=== PATIENT | female | born 1945 | race Caucasian/White ===

== ENCOUNTER 2024-08-02 10:20 | Inpatient (IN) | payer MEDICARE, SELFPAY ==
--- NOTE | ~2024-08-02 | CT_ITS ---
EXAMINATION: CT ABDOMEN AND PELVIS WITH CONTRAST CLINICAL INFORMATION: Right lower quadrant pain COMPARISON: None available. TECHNIQUE: Multidetector volumetric images were obtained from the superior aspect of the liver through the pubic symphysis following administration 85 mL of Omnipaque 350 intravenous contrast. Sagittal and coronal reformatted images were obtained on the technologist's workstation. Oral contrast: No This CT examination was performed using dose optimization techniques as appropriate, variously including the following: *Automated exposure control *Adjustment of mA and/or kV according to patient size (this includes techniques or standardized protocols for targeted exams where dose is matched to indication/reason for exam; i.e. extremities or head) *Use of iterative reconstruction technique DLP: 423 mGy-cm FINDINGS: Images are degraded by streak artifact from lumbar spine hardware, limiting evaluation of fine detail. LUNG BASES: The visualized lung bases are unremarkable. LIVER, GALLBLADDER, AND BILIARY TREE: The liver is diffusely low in attenuation in keeping with hepatic steatosis, but otherwise normal in size and shape. No focal hepatic lesion or biliary ductal dilatation is present. The gallbladder is unremarkable with no evidence of radiopaque gallstones, gallbladder wall thickening, or obvious pericholecystic inflammatory changes. PANCREAS: Multilobular cystic lesion in the pancreatic head measures 3.7 x 2.8 x 5.2 cm. No pancreatic duct dilatation. SPLEEN: Unremarkable. ADRENAL GLANDS: Unremarkable. KIDNEYS AND URETERS: Mild left hydronephrosis without obstructing stone or mass. Mild fullness of the right extrarenal pelvis without overt hydronephrosis. No renal calculi. BLADDER: Distended without wall thickening. GASTROINTESTINAL TRACT: Large stool burden throughout the colon. Right inguinal hernia contains a loop of small bowel with with fecalization, suggesting slow transit. In addition, the proximal loops of small bowel are diffusely distended and gas-filled, a few of which have air-fluid levels. Scattered sigmoid diverticulosis without secondary signs of acute diverticulitis. The appendix is not visualized. ABDOMINAL WALL: Moderate sized right foraminal hernia containing a loop of small bowel resulting in possible small bowel obstruction, as above. Small fat-containing left inguinal hernia. LYMPH NODES: Normal. VASCULAR: Extensive atherosclerosis of aorta and its branches. No abdominal aortic aneurysm. Enlarged left gonadal vein and tangle of bilateral parametrial vessels, greater on the left, may represent a pelvic venous malformation. PELVIC VISCERA: Unremarkable. OSSEOUS STRUCTURES: Diffuse low density of the bones likely represents osteoporosis. Multilevel degenerative changes of the spine. Posterior fusion hardware of L4-L5. Severe compression fracture of T11 of indeterminate age with 75% height loss. CT/CT abdomen pelvis w IV con IMPRESSION: 1. Moderate-sized right inguinal hernia containing a loop of small bowel with fecalization, suggesting slow transit. Diffuse gaseous distention of the proximal loops of small bowel, some of which contain air-fluid levels. Findings are concerning for incarcerated hernia and resultant small bowel obstruction. 2. Large stool burden throughout the colon. 3. Multilobular cystic lesion in the pancreatic head measures 3.7 x 2.8 x 5.2 cm. Recommend further evaluation with MRI/MRCP. 4. Enlarged left gonadal vein and tangle of bilateral parametrial vessels, greater on the left, may represent a pelvic venous malformation. 5. Osteoporosis. 6. Severe compression fracture of T11 of indeterminate age with 75% height loss. 7. Hepatic steatosis. Fleischner guidelines were followed. Findings were verbally communicated with Dr. Arianna Hartman on 08/02/2024 at 3:07 PM. Electronically signed by: Mery Escalante MD 08/02/2024 03:08 PM [facility]
[2024-08-02 10:34] VITALS: BP 138/86; BP 158/76; PULSE 104; PULSE 88; RESP 20; TEMP 36.6; O2SAT 97; O2SAT 98; BMI 21.3
--- NOTE | 2024-08-02 10:47 | ECG_ITS ---
Test Reason : RLQ PAIN, RO APPY Blood Pressure : / mmHG Vent. Rate : 085 BPM Atrial Rate : 085 BPM P-R Int : 146 ms QRS Dur : 068 ms QT Int : 386 ms P-R-T Axes : 069 -26 -14 degrees QTc Int : 459 ms Sinus rhythm with Premature atrial complexes Minimal voltage criteria for LVH, may be normal variant ( R in aVL ) Borderline ECG No previous ECGs available Referred By: Arianna Hartman Electronically Signed By:Neo Hatch
--- NOTE | 2024-08-02 10:49 | ED_ITS ---
HPI - General Adult General Chief complaint: General Medical Stated complaint: UPSET STOMACH Time Seen by Provider: 08/02/24 10:41 Source: patient and EMS Mode of arrival: EMS Limitations: no limitations History of Present Illness ED Provider: DR. Hartman HPI narrative: 78-year-old female came in by EMS from our [facility] assisted living for evaluation after having upset stomach after breakfast with vomiting and now patient is complaining of epigastric pain with burping, VNA also noticed to have erratic pulse while she was at the assisted living patient was sent for further evaluation, in the ED patient feels slightly nauseous, complaining of right-sided abdominal pain/ epigastric pain. No diarrhea. No sick contacts, no recent use of antibiotic, no recent travel. No history of intra-abdominal surgery in the past. No CP, no SOB , no dysuria, no frequency urination, no hematuria. Related Data Allergies Allergy/AdvReac Type Severity Reaction Status Date / Time penicillin G Allergy Hives Verified 08/02/24 10:37 Review of Systems 2 Review of Systems: All other systems are reviewed and are negative Constitutional: Reports as per HPI and Reports no additional constitutional complaints Eyes: Reports as per HPI and Reports no additional eye complaints Reports system reviewed and no additional complaints, except as documented Cardiovascular: Reports as per HPI and Reports no additional cardiovascular complaints Respiratory: Reports as per HPI and Reports no additional respiratory complaints Gastrointestinal: Reports as per HPI and Reports no additional gastrointestinal complaints Genitourinary: Reports no additional female genitourinary complaints Musculoskeletal: Reports no additional musculoskeletal complaints Skin/Breast: Reports system reviewed and no additional complaints, except as docu Psychiatric: Reports no additional psychiatric complaints Endocrine: Reports no additional endocrine complaints Hematologic/Lymphatic: Reports no additional hematologic/lymphatic complaints Allergic/Immunologic: Reports no additional allergic/immunologic complaints Reports system reviewed and no additional complaints, except as documented and Reports Abnormal speech present [facility] Social History Social History Smoked in Last 30 Days: No Use of substances other than those prescribed or required for medical reasons: No Advance Directives: No Advance Directives Information Provided: No Do you have a plan to hurt others: No Plan Physical Exam ED Vital Signs: Vital Signs - 24 hr 08/02/24 10:34 08/02/24 12:11 Temperature 97.9 F 97.6 F Pulse Rate 104 H 68 Respiratory Rate 20 14 Blood Pressure 158/76 H 155/86 H Pulse Oximetry 98 96 Oxygen Delivery Method Room Air Room Air BMI result Body Mass Index 21.3 Vital signs have been reviewed and appear to be correct. Blood pressure elevated. Heart rate elevated. Respiratory rate normal. Temperature normal. Oxygen saturation normal. Appearance: Alert. Oriented X3. No acute distress. Head: Normal external exam. Normocephalic. Atraumatic. No Simon signs noted. No raccoon eyes noted Eyes: PERRLA. EOMI. Conjunctiva and sclera normal. Eyelids normal. ENT: TM's Normal. Pharynx normal. Uvula midline. Moist mucous membranes. No trismus noted. No drooling noted. No muffled voice noted. Neck: Normal inspection. Neck supple. FROM. No adenopathy. Thyroid Normal. No meningeal signs. No neck mass noted. CVS: Normal heart rate and rhythm. Heart sound normal. No murmurs noted. Pulses normal throughout. Respiratory: No respiratory distress. Painless inspiration. Breath sounds normal. No wheezes/rales/rhonchi noted. Chest nontender. No accessory muscle usage noted or decreased air movement noted. Abdomen: Soft , right lower quadrant abdominal tenderness, no rebound tenderness, no guarding. Bowel sounds normal in all 4 quadrants. No distention noted. No organomegaly noted. No visible injury noted. Back: No CVA tenderness. Full range of motion noted. Skin: Skin warm and dry. Normal skin color. Normal skin turgor. No rashes/lesions/lacerations noted. Extremities: No lower extremity edema. Extremities exhibit normal range of motion. Extremities nontender. Neuro: Oriented X 3. Cranial nerve exam: II-XII are grossly intact No motor deficit. No sensory deficit. Reflexes normal. Course Reevaluation(s) Reevaluation #1: still feels slight discomfort, patient is burping, CT abdomen pelvis is concern of small-bowel obstruction secondary to right inguinal hernia. Pancreatic mass that will require further workup Time: 15:14 Medications Administered Discontinued Medications Generic Name Dose Route Start Last Admin Trade Name Freq PRN Reason Stop Dose Admin Al Hydroxide/Mg Hydroxide 30 ml 08/02/24 10:47 08/02/24 11:05 Magnesium Hydrox/Alum Hydrox 30 Ml Oral.Susp PO 08/02/24 10:48 30 ml ONCE ONE Administration Famotidine 20 mg 08/02/24 10:47 08/02/24 11:05 Famotidine/Pf 20 Mg/2 Ml Vial IVPUSH 08/02/24 10:48 20 mg ONCE ONE Administration Sodium Chloride 1,000 mls @ 999 mls/hr 08/02/24 10:47 08/02/24 12:09 Ns IV 08/02/24 11:47 Infused .Q1H1M ONE Infusion Iohexol 100 ml 08/02/24 13:40 08/02/24 13:40 Iohexol 350 Mg/Ml 100 Ml Infus..Btl IV 08/02/24 13:41 85 ml ONCE ONE Administration Ondansetron HCl 4 mg 08/02/24 10:47 08/02/24 11:12 Ondansetron Hcl 4 Mg/2 Ml Vial IVPUSH 08/02/24 10:48 Not Given ONCE ONE Medical Decision Making Differential Diagnosis Differential Diagnoses: The differential diagnosis associated with the presentation includes ( Acute appendicitis, gastroenteritis, food poisoning, gastritis, gallbladder disease, pancreatitis, colitis, diverticulitis, electrolyte derangement, severe anemia, ACS, incarcerated right inguinal hernia, SBO.) Admission/Observation Consideration of admission/observation: Escalation of care including admission/observation considered Lab Data MDM Lab Attestation statement: I reviewed the patient's lab results. 08/02/24 11:02 08/02/24 11:02 Labs: Lab Results 08/02/24 Range/Units 11: WBC 8.5 (4.8-10.8) X10*3/uL RBC 4.49 (4.20-5.50) X10*6/uL Hgb 14.0 (12.0-16.0) g/dl Hct 41.9 (37.0-47.0) % MCV 93.3 (80.0-98.0) fL MCH 31.2 (27.0-33.0) pg MCHC 33.4 (31.0-35.0) g/dl RDW 15.1 (11.0-16.0) % Plt Count 519 H (160-400) X10*3/uL MPV 8.3 L (9.4-12.3) fL Immature Gran % (Auto) 0.4 (0.0-0.4) % Neut % (Auto) 71.6 (45-73) % Lymph % (Auto) 15.4 L (20-40) % Craig % (Auto) 11.0 (2-11) % Eos % (Auto) 0.7 (0-4) % Baso % (Auto) 0.9 (0-2) % Lymph # (Auto) 1.3 (1.2-4.9) X10*3/uL Craig # (Auto) 0.9 (0.1-1.2) X10*3/uL Eos # (Auto) 0.1 (0.0-0.4) X10*3/uL Baso # (Auto) 0.1 (0.0-0.2) X10*3/uL Abs Immat Gran (auto) 0.03 (0.00-0.03) X10*3/uL Absolute Neuts (auto) 6.1 (2.0-8.3) x10*3/uL Absolute Nucleated RBC 0.000 (0.0-0.012) X10*3/uL Nucleated RBC % (auto) 0.0 (0.0-0.2) /100WBC Sodium 143 (135-145) mmol/L Potassium 3.8 (3.3-5.1) mmol/L Chloride 106 (96-108) mmol/L Carbon Dioxide 26 (22-29) mmol/L Anion Gap 15 (12-20) BUN 10 (9-16) mg/dL Creatinine 0.67 (0.5-1.4) mg/dL Estim Creat Clear Calc 56.3 Estimated GFR > 60 Random Glucose 93 (60-115) mg/dL Calcium 10.1 (8.4-10.2) mg/dL Total Bilirubin 0.4 (0.0-1.0) mg/dL Direct Bilirubin 0.2 (0.0-0.5) mg/dL AST 26 (5-31) U/L ALT 11 (0-31) U/L Alkaline Phosphatase 68 (39-117) U/L Troponin I High Sens 4.4 (<3.5-17.0) ng/L Total Protein 6.7 (6.5-8.0) g/dL Albumin 3.8 (3.5-5.0) g/dL Lipase 30 (8-78) U/L Independent Interpretation I performed an independent interpretation of an: CT Scan ( Abdomen pelvis: No acute intra-abdominal pathology.) Radiology Impression Discussion of test interpretation with radiology: I have reviewed the radiologist's reading. Discharge Plan Discharge Clinical Impression: Inguinal hernia, right, Cystic mass of pancreas, Small bowel obstruction Patient Disposition: Admitted As Inpatient Instructions: Food Poisoning (ED) Referrals: Ginna Guevara MD [Primary Care Provider] - Print Language: German
[2024-08-02 11:05] LABS: MANUAL DIFF FLAG NO
[2024-08-02] MEDS: 0.9 % Sodium Chloride 1,000 ML 999 ML IV (11:05)
[2024-08-02] MEDS: Magnesium Hydrox/Alum Hydrox 30 ML ORAL.SUSP PO (11:05)
[2024-08-02] MEDS: Famotidine/PF 20 MG/2 ML VIAL IVPUSH (11:05)
[2024-08-02 11:07] LABS: Basophils Absolute Auto 0.1 X10*3/uL (0.0-0.2); Basophils Percent Auto 0.9 % (0-2); Eosinophils Absolute Auto 0.1 X10*3/uL (0.0-0.4); Eosinophils Percent Auto 0.7 % (0-4); Hematocrit 41.9 % (37.0-47.0); Imm Gran Abs Auto 0.03 X10*3/uL (0.00-0.03); Imm Gran Pct Auto 0.4 % (0.0-0.4); Lymphocytes Absolute Auto 1.3 X10*3/uL (1.2-4.9); Lymphocytes Percent Auto 15.4 % (20-40); Mean Corpuscular HGB Conc 33.4 g/dl (31.0-35.0); Mean Corpuscular Hemoglobin 31.2 pg (27.0-33.0); Mean Corpuscular Volume 93.3 fL (80.0-98.0); Mean Platelet Volume 8.3 fL (9.4-12.3); Monocytes Absolute Auto 0.9 X10*3/uL (0.1-1.2); Neutrophils Absolute Auto 6.1 x10*3/uL (2.0-8.3); Neutrophils Percent Auto 71.6 % (45-73); Platelet Count 519 X10*3/uL (160-400); Red Blood Count 4.49 X10*6/uL (4.20-5.50); Red Cell Distribution Width 15.1 % (11.0-16.0); White Blood Count 8.5 X10*3/uL (4.8-10.8)
[2024-08-02 11:24] LABS: Alanine Aminotransferase 11 U/L (0-31); Albumin Level 3.8 g/dL (3.5-5.0); Alkaline Phosphatase 68 U/L (39-117); Anion Gap 15 (12-20); Aspartate Amino Transferase 26 U/L (5-31); Bilirubin Direct 0.2 mg/dL (0.0-0.5); Bilirubin Total 0.4 mg/dL (0.0-1.0); Blood Urea Nitrogen 10 mg/dL (9-16); Calcium 10.1 mg/dL (8.4-10.2); Carbon Dioxide 26 mmol/L (22-29); Chloride 106 mmol/L (96-108); Creatinine Clr Calc Pharmacy 56.3; Estimated Glomerular Filt Rate > 60; Glucose Random 93 mg/dL (60-115); Lipase 30 U/L (8-78); Potassium 3.8 mmol/L (3.3-5.1); Sodium 143 mmol/L (135-145); Total Protein 6.7 g/dL (6.5-8.0)
[2024-08-02 11:30] LABS: Troponin-I High Sensitivity 4.4 ng/L (<3.5-17.0)
[2024-08-02 12:11] VITALS: BP 155/86; PULSE 68; RESP 14; TEMP 36.4; O2SAT 96
[2024-08-02] MEDS: iohexoL 350 MG/ML 100 ML INFUS..BTL IV (13:40)
[2024-08-02] MEDS: Dextrose 5 % and Lactated Ring 1,000 ML 125 ML IVCONT ×2 (15:46→23:12)
[2024-08-02 16:09] VITALS: BP 161/85; PULSE 71; RESP 18; TEMP 36.8; O2SAT 95
[2024-08-02 16:26] VITALS: BP 175/85; PULSE 77; RESP 16; TEMP 36.5; O2SAT 98
--- NOTE | 2024-08-02 16:38 | PM.HPGS ---
History of Present Illness History of Present Illness Date of Service: 08/02/24 Chief complaint: SBO, incarcerated [facility] Narrative: Sylvia Jimenez is a 78 year old female presenting with complaints of nausea and vomiting this morning after eating breakfast. She also reported an upset stomach. She denies a previous history of similar symptoms. She had a known history of a right inguinal hernia and had recently seen a surgeon for repair. The decision was made to observe the hernia at the time. She occasionally has some discomfort and notes the hernia to increase in decrease in size with activity. She denies a previous history of hernia surgery. CT abdomen and pelvis revealed a loop of small bowel within the right inguinal hernia sac with evidence of fecalization and distended small bowel proximal to the hernia suggestive of a small-bowel obstruction. She is admitted to the surgical service for further management of this incarcerated right inguinal hernia. Review of Systems Review of Systems: Yes all other systems are reviewed and are negative Constitutional: Constitutional: Denies chills, Denies fever(s), Denies headache(s), Denies poor appetite and Denies weakness ENT: Denies headache(s) Cardiovascular: Cardiovascular: Denies chest pain, Denies irregular heart rhythm, Denies palpitations and Denies dyspnea Respiratory: Respiratory: Denies cough, Denies excessive phlegm production and Denies dyspnea Gastrointestinal: Gastrointestinal: Denies abdominal pain, Denies bloating, Denies change in bowel habits, Denies constipation, Denies heartburn, Denies diarrhea, Denies nausea and Denies vomiting Genitourinary: Genitourinary: Denies urinary frequency Musculoskeletal: Musculoskeletal: Denies back pain, Denies muscle weakness and Denies numbness Integumentary/Breasts: Skin/Breast: Denies changing lesions and Denies unusual bruising Neurologic: Denies headache(s), Denies numbness, Denies paresthesias and Denies weakness Psychiatric: Psychiatric: Denies anxiety and Denies depression Endocrine: Endocrine: Denies palpitations Hematologic/Lymphatic: Hematologic/Lymphatic: Denies lymphadenopathy [facility] Past Medical History Medical History (Updated 08/02/24 @ 16:43 by Vicente Stearns MD) Sacral decubitus ulcer, stage III Spinal stenosis Kidney stones Cystic mass of pancreas Surgical History Surgical History (Updated 08/02/24 @ 16:40 by Vicente Stearns MD) Previous back surgery Social History Social History Patient Tobacco Use Status: Never used Tobacco Smoked in Last 30 Days: No Use of substances other than those prescribed or required for medical reasons: No Advance Directives: No Advance Directives Information Provided: No Do you have a plan to hurt others: No Plan Nutrition Risks: No Nutritional Risk Meds Allergies Allergy/AdvReac Type Severity Reaction Status Date / Time penicillin G Allergy Hives Verified 08/02/24 10:37 Active Medications: Current Medications Calcium Carbonate (Calcium Carbonate 750 Mg Tab.Chew) 750 mg PO Q4H PRN PRN Reason: Heartburn Hydromorphone HCl (Hydromorphone Hcl 0.5 Mg/0.5 Ml Syringe) 0.5 mg IVPUSH Q3H PRN; Protocol PRN Reason: Pain, Severe (Pain Scale 7-10) Dextrose/Lactated Ringer's (D5lr) 1,000 mls @ 125 mls/hr IVCONT .Q8H [facility] Last Admin: 08/02/24 15:46 Dose: 125 mls/hr Magnesium Hydroxide (Milk Of Magnesia 30 Ml Oral.Susp) 30 ml PO DAILY PRN PRN Reason: Constipation Melatonin (Melatonin 3 Mg Tablet) 6 mg PO BEDTIME PRN PRN Reason: Insomnia Ondansetron HCl (Ondansetron Hcl 4 Mg/2 Ml Vial) 4 mg IVPUSH QID PRN PRN Reason: Nausea Sodium Chloride (0.9 % Sodium Chloride Flush 3 Ml Syringe) 3 ml IVFLUSH QSHIFT [facility] Last Admin: 08/02/24 16:11 Dose: Not Given Home Medications ?Medication ?Instructions ?Recorded ?Confirmed ?Last Taken ?Type acetaminophen 325 mg tablet 650 mg PO Q6H PRN Pain 08/02/24 08/02/24 Unknown History levofloxacin 750 mg tablet 750 mg PO DAILY 08/02/24 08/02/24 Unknown History metronidazole 250 mg tablet 750 mg PO Q6H wound 08/02/24 08/02/24 Unknown History Physical Exam Vital Signs: Vital Signs: Last Vital Signs Temp 97.7 F 08/02/24 16:26 Pulse 77 08/02/24 16:26 Resp 16 08/02/24 16:26 BP 175/85 H 08/02/24 16:26 Pulse Ox 98 08/02/24 16:26 O2 Del Method Room Air 08/02/24 16:26 BMI result Body Mass Index 21.3 Const: General: cooperative and no acute distress Nutritional Appearance: well nourished Orientation/consciousness: patient oriented x3 Limitations: no limitations HEENT: Head: Yes normocephalic and Yes atraumatic Ears: hearing grossly normal bilaterally Resp: Effort & Inspection: normal respiratory effort, no audible wheezes, no cough and no respiratory distress Cardio: Jugular venous distension: no JVD GI: Other: Soft and nondistended, tympany to percussion, positive bowel sounds, tenderness in the right lower quadrant with a palpable right inguinal hernia which increases with Valsalva maneuvers. No left inguinal hernia appreciated. Inspection: Yes normal to inspection Abdomen image: 1. Skin: Other: Warm, dry, no rash Neuro: General: patient oriented x3 Extrem: General: Yes no clubbing, cyanosis or edema Results Results Labs: Short CBC 08/02/24 Range/Units 11:02 WBC 8.5 (4.8-10.8) X10*3/uL Hgb 14.0 (12.0-16.0) g/dl Hct 41.9 (37.0-47.0) % Plt Count 519 H (160-400) X10*3/uL BMP 08/02/24 11:02 Sodium 143 Potassium 3.8 Chloride 106 Carbon Dioxide 26 BUN 10 Creatinine 0.67 Calcium 10.1 Liver Function 08/02/24 Range/Units 11:02 Total Bilirubin 0.4 (0.0-1.0) mg/dL Direct Bilirubin 0.2 (0.0-0.5) mg/dL AST 26 (5-31) U/L ALT 11 (0-31) U/L Alkaline Phosphatase 68 (39-117) U/L Albumin 3.8 (3.5-5.0) g/dL Assessment and Plan (1) Incarcerated right inguinal hernia: Status: Acute Plan 78-year-old female patient presenting with a recent onset of nausea and vomiting found to have an incarcerated right inguinal hernia on examination and confirmed by CT abdomen and pelvis. CT also reveals small bowel obstruction proximal to the hernia. I recommended admission with repair of this incarcerated right inguinal hernia tomorrow. I reviewed the procedure, risks, and alternatives in detail and she consents to a repair of the incarcerated right inguinal hernia with mesh. Quality Stroke Does the patient have a stroke diagnosis?: No VTE Prior VTE?: No VTE Risk Level:: Surgical - moderate VTE Device Contraindication: N/A - Device Ordered VTE Drug Contraindication: Treatment Not Indicated Procedures Date of Service Date of Service: 08/02/24
--- NOTE | 2024-08-02 16:40 | PHA.MEDREC ---
Addendum entered by Susan Fernandes RP 08/02/24 16:59: Reviewed by [facility] Original Note: Pharmacy Consult ? Medication Reconciliation Pharmacy has completed the medication reconciliation. Spoke with patient. She reports she only takes tylenol at home and was sent to [facility] from [place] in [place] with antibiotics. Called daughter and she could not remember the names of them but she knew the patient only took one of them this morning, she does not know which one. [place] reports levaquin and flagyl 14 day courses with end dates 08/06 and 08/05 respectively (for wound). Daughter reports she is supposed to [employer] wound care supplies tomorrow.
[2024-08-02 18:24] VITALS: BMI 22.4
[2024-08-02 18:40] VITALS: BP 166/82; PULSE 74; RESP 20; TEMP 36.6; O2SAT 96
[2024-08-02] MEDS: Acetaminophen 325 MG TABLET 650 MG PO (20:54)
[2024-08-02 21:01] LABS: Appearance Urine Clear; Color Urine Yellow; Glucose Urine UA Negative (Negative); Leukocyte Esterase Urine Small (1+) (Negative); Nitrite Urine Negative (Negative); UMIC TRIGGER UACC YES; Urine Blood Negative (Negative); Urine Ketones Negative (Negative); Urine Protein Negative (Neg-Trace)
[2024-08-02 21:14] LABS: Bacteria Urine None Seen (None Seen); Hyaline Casts Urine 0-2 /LPF (0-2); RBC Urine 0-2 /HPF (0-2); Squamous Epithelial Cell Urine 0-2 /HPF (0-2); UACC Culture Trigger YES; WBC Urine 0-5 /HPF (0-5)
[2024-08-03] VITALS (10 sets, daily range): BP systolic 117–145; BP diastolic 59–84; PULSE 74–109; RESP 14–18; TEMP 36–37.2; O2SAT 93–97; BMI 22.4
[2024-08-03] MEDS: Dextrose 5 % and Lactated Ring 1,000 ML 125 ML IVCONT ×3 (08:02→23:17)
[2024-08-03] MEDS: HYDROmorphone HCl 0.5 MG/0.5 ML SYRINGE IVPUSH (08:08)
--- NOTE | 2024-08-03 09:07 | MHC.SHP ---
Pre-Procedural Eval Section A - 24 Hr Update-Section A only Date of Service: 08/03/24 The patient is an INPATIENT: Yes Changes since office visit: Yes Patient answered all questions; No Cold of Flu in the past 2 weeks, No New Medical Problems and No Changes in Medication The patient has been examined within 24 hours of the surgical procedure. The History & Physical has been completed within 30 days and I have reviewed it.: Yes Section B - Complete if H&P > 30 days Chief Complaint: SBO, incarcerated [facility] Allergies: Allergies Allergy/AdvReac Type Severity Reaction Status Date / Time penicillin G Allergy Hives Verified 08/02/24 10:37 Plan Diagnosis/Plan: Unchanged I have reviewed the history and physical and performed a pertinent physical examination on my patient. No changes have occurred unless specified. Time Spent With Patient Time: Total time managing care of this patient today ____ minutes.
--- NOTE | 2024-08-03 10:58 | P.CONAN_ITS ---
HPI - Anesthesia Eval Consult details Narrative: 78 yo female patient for repair of Incarcerated Right inguinal hernia with mesh PMFSH Active Problems Active Problems: All Active Problems Incarcerated right inguinal hernia (Acute) Urinary tract infection (Acute) Sacral decubitus ulcer, stage III (Acute) Spinal stenosis (Acute) Kidney stones (Acute) Small bowel obstruction (Acute) Cystic mass of pancreas (Acute) Past Medical History Medical History Sacral decubitus ulcer, stage III Spinal stenosis Kidney stones Cystic mass of pancreas Family History Family history of problems with anesthesia: No Surgical History Surgical History H/O lithotripsy H/O brain surgery Total knee replacement status Previous back surgery History of Problems with Anesthesia: No Social History Social History Household Members: Other Housing: Assisted Living Facility Housing Other:: Independent living/ [place] Are you a primary health care attorney to a significant other at home: No Do you presently have visiting nurse or other home services: No Patient Tobacco Use Status: Never used Tobacco Meds Allergies Allergy/AdvReac Type Severity Reaction Status Date / Time penicillin G Allergy Unknown Hives Verified 08/03/24 12:09 Active Medications: Current Medications Acetaminophen (Acetaminophen 325 Mg Tablet) 650 mg PO QID PRN PRN Reason: headache, temp > 101 Last Admin: 08/02/24 20:54 Dose: 650 mg Calcium Carbonate (Calcium Carbonate 750 Mg Tab.Chew) 750 mg PO Q4H PRN PRN Reason: Heartburn Hydromorphone HCl (Hydromorphone Hcl 0.5 Mg/0.5 Ml Syringe) 0.5 mg IVPUSH Q3H PRN; Protocol PRN Reason: Pain, Severe (Pain Scale 7-10) Last Admin: 08/03/24 08:08 Dose: 0.5 mg Dextrose/Lactated Ringer's (D5lr) 1,000 mls @ 125 mls/hr IVCONT .Q8H LUPIS Last Admin: 08/03/24 08:02 Dose: 125 mls/hr Influenza Virus Vaccine (Flu Vacc [id number](6mos Up)/Pf 0.5 Ml Syringe) 0.5 ml IM .ONCE ONE Stop: 08/04/24 09:01 Magnesium Hydroxide (Milk Of Magnesia 30 Ml Oral.Susp) 30 ml PO DAILY PRN PRN Reason: Constipation Melatonin (Melatonin 3 Mg Tablet) 6 mg PO BEDTIME PRN PRN Reason: Insomnia Ondansetron HCl (Ondansetron Hcl 4 Mg/2 Ml Vial) 4 mg IVPUSH QID PRN PRN Reason: Nausea Sodium Chloride (0.9 % Sodium Chloride Flush 3 Ml Syringe) [address] [facility] Last Admin: 08/03/24 08:03 Dose: Not Given Home Medications ?Medication ?Instructions ?Recorded ?Confirmed ?Last Taken ?Type acetaminophen 325 mg tablet 650 mg PO Q6H PRN Pain 08/02/24 08/02/24 Unknown History levofloxacin 750 mg tablet 750 mg PO DAILY 08/02/24 08/02/24 Unknown History metronidazole 250 mg tablet 750 mg PO Q6H wound 08/02/24 08/02/24 Unknown History Exam Height,Weight and Vital Signs: Height 5 ft 3 in Weight 57.3 kg Last Vital Signs Temp 96.8 F 08/03/24 07:13 Pulse 74 08/03/24 07:13 Resp 14 08/03/24 07:13 BP 123/72 08/03/24 07:13 Pulse Ox 94 08/03/24 07:13 O2 Del Method Room Air 08/03/24 07:13 Vital Signs Temp Pulse Resp BP Pulse Ox O2 Del Method 08/03/24 12:17 98.9 F 81 16 143/71 H 96 Room Air 08/03/24 07:13 96.8 F 74 14 123/72 94 Room Air 08/03/24 03:12 97.2 F 80 18 117/60 97 Room Air 08/02/24 18:40 98 F 74 20 166/82 H 96 Room Air 08/02/24 16:26 97.7 F 77 16 175/85 H 98 Room Air 08/02/24 16:09 98.2 F 71 18 161/85 H 95 Room Air Pertinent Lab Results Pertinent Lab Results: Laboratory Tests 08/02/24 08/02/24 11:02 20:55 WBC 8.5 RBC 4.49 Hgb 14.0 Hct 41.9 MCV 93.3 MCH 31.2 MCHC 33.4 RDW 15.1 Plt Count 519 H MPV 8.3 L Immature Gran % (Auto) 0.4 Neut % (Auto) 71.6 Lymph % (Auto) 15.4 L [place] % (Auto) 11.0 Eos % (Auto) 0.7 Baso % (Auto) 0.9 Lymph # (Auto) 1.3 [place] # (Auto) 0.9 Eos # (Auto) 0.1 Baso # (Auto) 0.1 Abs Immat Gran (auto) 0.03 Absolute Neuts (auto) 6.1 Absolute Nucleated RBC 0.000 Nucleated RBC % (auto) 0.0 Sodium 143 Potassium 3.8 Chloride 106 Carbon Dioxide 26 Anion Gap 15 BUN 10 Creatinine 0.67 Estim Creat Clear Calc 56.3 Estimated GFR > 60 Random Glucose 93 Calcium 10.1 Total Bilirubin 0.4 Direct Bilirubin 0.2 AST 26 ALT 11 Alkaline Phosphatase 68 Troponin I High Sens 4.4 Total Protein 6.7 Albumin 3.8 Lipase 30 Urine Color Yellow Urine Appearance Clear Urine pH 8.0 Ur Specific [place] 1.020 Urine Protein Negative Urine Glucose (UA) Negative Urine Ketones Negative Urine Blood Negative Urine Nitrite Negative Ur Leukocyte Esterase Small (1+) H Urine RBC 0-2 Urine WBC 0-5 Ur Squamous Epith Cells 0-2 Urine Bacteria None Seen Hyaline Casts 0-2 Airway Mallampati Class: III (Small mouth) TM Dist: >3cm Neck ROM: Full Loose/Missing/Broken Teeth: No Heart: RRR Lungs: CTAB Assessment and Plan Assessment Anesthesia Assessment: Anesthesia Plan Discussed and Chart Reviewed Final Anesthetic Review Family History of Problems with Anesthesia: No History of Problems with Anesthesia: No NPO: Yes ASA Class: III and Emergency Final Preanesthetic Review: No Changes in Pt Med Stat, Meds/Allgs Chart Reviewed, Consent Obtained/Reviewed and Anes Risks/Benef Reviewed Patient Risk: Intermediate Procedure Risk: Intermediate Assessment/Block/Sedation in SS: Assess/Block/Sedation-SS Anesthetic Plan Anesthetic Plan: GA Disposition: Standard PACU
--- NOTE | 2024-08-03 11:35 | MHC.CLN ---
NUTRITION CURRENTLY NPO FOR SURGERY. INCREASED NUTRITION NEEDS, PROTEIN, DUE TO PRESSURE INJURIES. PATIENT WITH STAGE IV PI TO COCCYX AND UNSTAGEABLE AREA TO LEFT HEEL. WHEN ABLE TO ADVANCE DIET, RECOMMEND ADD ENSURE MAX PROTEIN BID TO PROMOTE WOUND HEALING. SUPPLEMENT PROVIDES 300 KCALS, 60 G PROTEIN. FOLLOW FOR DIET ADVANCEMENT, PO INTAKE, AND WOUND HEALING. SEE CLINICAL NUTRITION ASSESSMENT 08/03/24.
--- NOTE | 2024-08-03 12:00 | PC.NURSE ---
Pt to the OR
--- NOTE | 2024-08-03 12:30 | PC.NURSE ---
Pts daughter Alley given update
--- NOTE | 2024-08-03 12:40 | HO.WOUND ---
Wound Consult: Initial 78yr old female admitted to [facility] on 08/02/24 - See progress notes and H&P for detailed history.? Wound consult placed for coccyx wound POA.? Patient agreeable to assessment and photo documentation.?Patient reports the injuries are from a may fall she suffered and then subsequent SNF stay. She reports VNA or her daughter change her dressing daily - she is unable to recall what she does to treat the area. She reports off loading pressure. She reports she treats with an outpt wound clinic on [address] in [facility]. Recommend continued outpt follow up for wound healing - given the dept of the sacral wound - Negative Pressure Wound Therapy would likely be beneficial. The patient was not interested in discussing this treatment option with me at this time. Sacrum Etiology: Stage 4 Pressure Injury??Present on Admission Measurements: 4cm x 4cm x 3cm Wound Bed: marbled moist wound bed with red and yellow slough Drainage / Odor: Moderate of large amount of frey yellow drainage Edges: ? unattached Yolanda wound: ? pink erythema remains blanchable - No Induration, Fluctuance or Warmth noted Pain: pain reported Goals of Treatment: Durafiber AG packing for moisture management Left Heel Right Heel Bilateral Heels Etiology: Resolving Deep tissue Injury??Present on Admission Wound Bed: dry intact dark nonblanchable tissue Drainage / Odor: None Edges: ? well defined Yolanda wound: ? intact Pain: denies Goals of Treatment:Foam dressing and off load pressure Posterior Head - red intact blanchable tissue noted - patient reports previous pressure injury sites. Off Load Pressure and reposition including head placement to aid in continued healing. Recommendations: 1. Turn and Reposition every 2 hours and as needed for patient comfort.? Use pillows or wedges to support off loading positions. 2. Off Load all bony prominences with use of pillows and heel boots if needed.? Apply Preventative foams where needed. ? 3. Monitor for incontinence and moisture control, use barrier creams when needed for prevention and treatment. 4. Provide adequate and supplemental nutrition.? 5. Order low air loss mattress. 6. When applicable maintain blood glucose levels per Providers order. 7. Bilateral Heels - Apply Skin Prep, Allow to dry. Cover wiht foam dressings change every 3-5 days and PRN. Elevate heels off of bed surface with pillows. 8. Posterior Head - Reposition and apply skin prep to sites to protect from friction. Daily. 9. Sacrum - Off Load Pressure - Cleanse and irrigate with NS, pat dry. Apply Triad to wound edges, lightly pack wound bed with Durafiber AG, Cover with Dry gauze and Foam dressing. Change every other day. Re-consult wound care Nurse for wound deterioration or wound changes.
--- NOTE | 2024-08-03 13:58 | W.PM.OPN ---
Operative Note Operative Note Date of Service: 08/03/24 Narrative: Preoperative diagnosis: Incarcerated right inguinal hernia Postoperative diagnosis: Same Procedure: Repair of large incarcerated right inguinal hernia with mesh Surgeon: Vicente Stearns MD Template Layout Worker: Libertad Michelle PA-C Anesthesia: General LMA Indications for procedure: 78-year-old female patient presenting with complaints of nausea and vomiting found to have incarcerated right inguinal hernia confirmed by CT abdomen and pelvis. Operative findings: Large indirect right inguinal hernia repaired with a medium PHS mesh Specimen: Hernia sac right Estimated blood loss: 5 mL Complications: None Procedure details: Patient was brought to the OR and placed in a supine position. After administering general anesthesia the patient's abdomen was prepped with ChloraPrep and draped in a sterile fashion. A surgical time-out was called the consent confirmed. Patient received preoperative antibiotics and Venodyne boots were in place. Local anesthesia consisting of 0.5% Sensorcaine was infiltrated over the right inguinal ligament. Incision was then made with a scalpel and carried out through subcutaneous tissue, past Yuli's fascia and up to the external oblique aponeurosis. Additional local was placed below the aponeurosis the this was then incised with a scalpel and widened with the Metzenbaum scissors. The round ligament was identified and retracted using a Cushing drain. The cord was found to be thickened consistent with an indirect hernia. Fibers of the round ligament with and a large indirect sac with no bowel identified. This was dissected completely. The sac was opened and the contents reduced. The sac was then ligated at the base using a 0 Polysorb suture. The sac was excised and sent to pathology for further examination. Fibers of the internal oblique and transversalis aponeurosis were then incised in the direct space. A preperitoneal space was then dissected using an open Ray-Erendira sponge. A medium PHS mesh was then obtained and the circular underlay deployed within the preperitoneal space. The overlay was then secured to the pubic tubercle, conjoined tendon, and shelving edge of the inguinal ligament using a 0 Polysorb suture. A slit was made in the mesh in the mesh wrapped around the round ligament. This was then secured to the shelving edge using the 0 Polysorb suture. Wounds were then irrigated with saline solution and suctioned dry. External oblique aponeurosis was reapproximated using a running 2-0 Polysorb suture. 8 mL of Zenrelef was then instilled below the external oblique aponeurosis for postop pain relief. Dermis and Yuli's fascia were reapproximated using interrupted 3-0 Polysorb sutures. Skin was closed using a running subcuticular 4-0 Polysorb suture. Steri-Strips, 2 x 2 gauze and Tegaderm were then applied. The patient tolerated the procedure well. Sponge, instrument, and needle counts were reported as correct. She was transferred to the PACU in stable condition.
[2024-08-03] MEDS: Acetaminophen 1,000 MG/100 ML PIGGYBACK 400 MG IV (14:54)
--- NOTE | 2024-08-03 15:23 | PC.NURSE ---
Daughter Alley given post op update . [phone]
[2024-08-03] MEDS: Acetaminophen 325 MG TABLET 650 MG PO (19:58)
[2024-08-04 03:57] VITALS: BP 101/52; PULSE 81; RESP 18; TEMP 36.6; O2SAT 94
[2024-08-04] MEDS: Acetaminophen 325 MG TABLET 650 MG PO ×4 (04:36→23:50)
--- NOTE | 2024-08-04 07:39 | P.PNGS_ITS ---
Subjective Subjective Date of Service: 08/04/24 <Libertad Michelle PA-C - Last Filed: 08/04/24 07:42> 08/04/24 <Vicente Stearns MD - Last Filed: 08/04/24 07:50> Interval history: Only slept two hours. States she is tired. Denies significant pain. Tolerated mac and cheese last night. Denies BM. <Libertad Michelle PA-C - Last Filed: 08/04/24 07:42> Physical Exam 2 Vital Signs: Vital Signs: Last Vital Signs Temp 97.8 F 08/04/24 03:57 Pulse 81 08/04/24 03:57 Resp 18 08/04/24 03:57 BP 101/52 L 08/04/24 03:57 Pulse Ox 94 08/04/24 03:57 O2 Del Method Room Air 08/04/24 03:57 BMI result Body Mass Index 22.4 <Libertad Michelle PA-C - Last Filed: 08/04/24 07:42> Const: General: comfortable, no acute distress and alert <Libertad Michelle PA-C - Last Filed: 08/04/24 07:42> Orientation/consciousness: patient oriented x3 <Libertad Michelle PA-C - Last Filed: 08/04/24 07:42> Resp: Effort & Inspection: normal respiratory effort <Libertad Michelle PA-C - Last Filed: 08/04/24 07:42> GI: Inspection: No distended and Yes incision (dressing clean) <Libertad Michelle PA-C - Last Filed: 08/04/24 07:42> Palpation (GI): Soft to palpation, nontender and no guarding <Libertad Michelle PA-C - Last Filed: 08/04/24 07:42> Skin: General skin exam: no rashes or lesions noted <Libertad Michelle PA-C - Last Filed: 08/04/24 07:42> Neuro: General: patient oriented x3 and moves all extremities <Libertad Michelle PA-C - Last Filed: 08/04/24 07:42> Objective Data Active Medications Acetaminophen (Acetaminophen 325 Mg Tablet) 650 mg PO QID PRN PRN Reason: headache, temp > 101 Last Admin: 08/04/24 04:36 Dose: 650 mg Documented By: ABDON Calcium Carbonate (Calcium Carbonate 750 Mg Tab.Chew) 750 mg PO Q4H PRN PRN Reason: Heartburn Hydromorphone HCl (Hydromorphone Hcl 0.5 Mg/0.5 Ml Syringe) 0.5 mg IVPUSH Q3H PRN; Protocol PRN Reason: Pain, Severe (Pain Scale 7-10) Last Admin: 08/03/24 08:08 Dose: 0.5 mg Documented By: KEITH Dextrose/Lactated Ringer's (D5lr) 1,000 mls @ 80 mls/hr IVCONT .[id number] [facility] Last Admin: 08/03/24 23:17 Dose: 125 mls/hr Documented By: ABDON Magnesium Hydroxide (Milk Of Magnesia 30 Ml Oral.Susp) 30 ml PO DAILY PRN PRN Reason: Constipation Melatonin (Melatonin 3 Mg Tablet) 6 mg PO BEDTIME PRN PRN Reason: Insomnia Ondansetron HCl (Ondansetron Hcl 4 Mg/2 Ml Vial) 4 mg IVPUSH QID PRN PRN Reason: Nausea Oxycodone HCl (Oxycodone Hcl Immed Release 5 Mg Tablet) 5 mg PO Q6H PRN PRN Reason: Pain, Moderate(Pain Scale 4-6) Sodium Chloride (0.9 % Sodium Chloride Flush 3 Ml Syringe) 3 ml IVFLUSH QSHIFT [facility] Last Admin: 08/03/24 22:58 Dose: Not Given Documented By: ABDON Non-Admin Reason: IV Running <Libertad Michelle PA-C - Last Filed: 08/04/24 07:42> Labs CBC & Chem 7: 08/02/24 11:02 08/02/24 11:02 <Libertad Michelle PA-C - Last Filed: 08/04/24 07:42> Microbiology Microbiology Results: Microbiology 08/02/24 21:15 Urine Culture - Preliminary Urine clean catch - Clean Catch Midstream Culture too young to evaluate. <Libertad Michelle PA-C - Last Filed: 08/04/24 07:42> Procedures Date of Service Date of Service: 08/04/24 <Libertad Michelle PA-C - Last Filed: 08/04/24 07:42> 08/04/24 <Vicente Stearns MD - Last Filed: 08/04/24 07:50> Progress Note: A&P Assessment and plan (1) Incarcerated right inguinal hernia: Status: Acute <Libertad Michelle PA-C - Last Filed: 08/04/24 07:42> Assessment and Plan: POD #1 s/p Repair of large incarcerated right inguinal hernia with mesh. Doing well post op. Abd benign, dressing clean, nontender. Tolerating solid diet. PT consult. Bowel regimen. Possibly home later today. <Libertad Michelle PA-C - Last Filed: 08/04/24 07:42> POD #1 s/p Repair of large incarcerated right inguinal hernia with mesh. Doing well post op. Abd benign, dressing clean, nontender. Tolerating solid diet. PT consult. Bowel regimen. Possibly home later today. Agree with the above assessment and plan. Patient tolerated the procedure well and is ready for discharge. She should follow up in the office in approximately 1 week for wound check. <Vicente Stearns MD - Last Filed: 08/04/24 07:50> Time Spent With Patient Time: Total time managing care of this patient today ____ minutes. <Libertad Michelle PA-C - Last Filed: 08/04/24 07:42> Quality Stroke Does the patient have a stroke diagnosis?: No <Libertad Michelle PA-C - Last Filed: 08/04/24 07:42> VTE Prior VTE?: No <Libertad Michelle PA-C - Last Filed: 08/04/24 07:42> VTE Risk Level:: Surgical - moderate <Libertad Michelle PA-C - Last Filed: 08/04/24 07:42> VTE Device Contraindication: N/A - Device Ordered <Libertad Michelle PA-C - Last Filed: 08/04/24 07:42> VTE Drug Contraindication: Treatment Not Indicated <Libertad Michelle PA-C - Last Filed: 08/04/24 07:42>
[2024-08-04 08:00] VITALS: BP 131/65; PULSE 72; RESP 18; TEMP 36.1; O2SAT 95
--- NOTE | 2024-08-04 08:01 | P.CDIM_ITS ---
PROVIDER RESPONSE TEXT: To clarify, the appropriate diagnosis supported by the clinical indicators: Pressure Injury Stage 4 sacrum: noted in ED prior to admission QUERY TEXT: PHYSICIAN'S DOCUMENTATION REQUEST Date of Query: 08/04/2024 05:33 AM EST Patient Name: Sylvia Jimenez Admit Date: 08/02/2024 Dear Vicente Stearns MD, A review of the medical record indicates additional documentation may be needed. Please review below and update the documentation accordingly. Clinical Indicators: Wound care assessment notes: Stage 4 Pressure Injury Sacrum, present on arrival. Marbled moist wound bed with red and yellow slough. Durafiber AG packing for moisture management. Based on the above, could you please provide further information regarding the ulcer/wound/injury: Pressure Injury Stage 4 sacrum suspected, possible, other stage of injury, please note if known etc. Other (explain) Clinically unable to determine (explain) Thank you, Vicki Kate, CCS, CDIS Use of terms such as suspected, likely, concern for, or probable (associated with a specific diagnosi s that is being evaluated, monitored, or treated as if it exists) are acceptable and can be coded in the inpatient se tting, when documented at the time of discharge. Please use your independent medical judgment in providing your response. THIS QUERY IS PART OF THE PERMANENT MEDICAL RECORD
[2024-08-04] MEDS: polyethylene glycoL 3350 17 GM POWD.PACK PO (08:42)
[2024-08-04] MEDS: Docusate Sodium 100 MG CAPSULE PO ×2 (08:42→20:04)
[2024-08-04] MEDS: Dextrose 5 % and Lactated Ring 1,000 ML 125 ML IVCONT (08:43)
--- NOTE | 2024-08-04 09:25 | MHC.CM.PN ---
IMM DELIVERED. PT LIVES AT [facility] IN [place]. PT IS ACTIVE WITH A VNA FOR WOUND CARE HOWEVER CANNOT RECALL NAME OF AGENCY, GIVES CM PERMISSION TO CALL DAUGHTER IGLESIA ([phone]) TO OBTAIN FURTHER INFORMATION. PT USES [facility] FOR MOBILITY. +HCP, COPY REQUESTED FROM [facility]. PCP DR. SHANICE DIALLO DP: P.T. REC. STR, PT IS AGREEABLE AND WOULD LIKE TO RETURN TO [facility] SHE WAS JUST THERE RECENTLY. WILL NEED BLS TRANSPORT. CM WILL CONTINUE TO FOLLOW FOR ANY CHANGE TO DC PLAN/NEEDS.
--- NOTE | 2024-08-04 12:22 | HO.POSTANES ---
Post Anesthesia Evaluation Post Anesthesia Evaluation Date of Service: 08/04/24 Vital Signs: Vital Signs Temp Pulse Resp BP Pulse Ox O2 Del Method 08/04/24 08:00 97 F 72 18 131/65 95 Room Air 08/04/24 03:57 97.8 F 81 18 101/52 L 94 Room Air Anesthesia: General Mental Status: Awake Pain Control: Satisfactory Nausea/Vomiting: None Hydration: Adequate Anesthesia-Related Issues: No Anes. Related Issues
[2024-08-04 13:46] VITALS: O2SAT 96
[2024-08-04 15:59] VITALS: BP 116/60; PULSE 73; RESP 18; TEMP 36.6; O2SAT 97
[2024-08-04] MEDS: 0.9 % Sodium Chloride Flush 3 ML SYRINGE IVFLUSH ×2 (17:38→20:19)
[2024-08-04 19:29] VITALS: BP 138/66; PULSE 80; RESP 18; TEMP 36.9; O2SAT 97
[2024-08-05 00:58] VITALS: RESP 16
[2024-08-05 03:35] VITALS: BP 131/60; PULSE 75; RESP 16; TEMP 36.8; O2SAT 97
[2024-08-05] MEDS: Acetaminophen 325 MG TABLET 650 MG PO ×2 (07:29→13:04)
[2024-08-05] MEDS: polyethylene glycoL 3350 17 GM POWD.PACK PO (07:29)
[2024-08-05] MEDS: Docusate Sodium 100 MG CAPSULE PO (07:30)
[2024-08-05] MEDS: 0.9 % Sodium Chloride Flush 3 ML SYRINGE IVFLUSH (07:30)
[2024-08-05 07:36] VITALS: BP 139/81; PULSE 78; RESP 16; TEMP 36.6; O2SAT 93
--- NOTE | 2024-08-05 10:34 | PM.PNGS ---
Subjective Subjective Date of Service: 08/05/24 Interval history: Feels well this morning. Mild incisional soreness. Tolerating solid diet. Physical Exam Vital Signs: Vital Signs: Last Vital Signs Temp 97.9 F 08/05/24 07:36 Pulse 78 08/05/24 07:36 Resp 16 08/05/24 07:36 BP 139/81 08/05/24 07:36 Pulse Ox 93 08/05/24 07:36 O2 Del Method Room Air 08/05/24 07:36 BMI result Body Mass Index 22.4 Const: General: comfortable, no acute distress and alert Resp: Effort & Inspection: normal respiratory effort GI: Inspection: No distended and Yes incision (clean, some mild surrounding ecchymosis ) Palpation (GI): Soft to palpation, Tenderness to palpation present (GI) (mild incisional) and no guarding Percussion: Yes normal to percussion Skin: General skin exam: no rashes or lesions noted Neuro: General: moves all extremities Objective Data Active Medications Acetaminophen (Acetaminophen 325 Mg Tablet) 650 mg PO QID PRN PRN Reason: headache, temp > 101 Last Admin: 08/05/24 07:29 Dose: 650 mg Documented By: MUNDO Calcium Carbonate (Calcium Carbonate 750 Mg Tab.Chew) 750 mg PO Q4H PRN PRN Reason: Heartburn Docusate Sodium (Docusate Sodium 100 Mg Capsule) 100 mg PO BID LUPIS Last Admin: 08/05/24 07:30 Dose: 100 mg Documented By: MUNDO Hydromorphone HCl (Hydromorphone Hcl 0.5 Mg/0.5 Ml Syringe) 0.5 mg IVPUSH Q3H PRN; Protocol PRN Reason: Pain, Severe (Pain Scale 7-10) Last Admin: 08/03/24 08:08 Dose: 0.5 mg Documented By: KEITH Magnesium Hydroxide (Milk Of Magnesia 30 Ml Oral.Susp) 30 ml PO DAILY PRN PRN Reason: Constipation Melatonin (Melatonin 3 Mg Tablet) 6 mg PO BEDTIME PRN PRN Reason: Insomnia Ondansetron HCl (Ondansetron Hcl 4 Mg/2 Ml Vial) 4 mg IVPUSH QID PRN PRN Reason: Nausea Oxycodone HCl (Oxycodone Hcl Immed Release 5 Mg Tablet) 5 mg PO Q6H PRN PRN Reason: Pain, Moderate(Pain Scale 4-6) Polyethylene Glycol (Polyethylene Glycol 3350 17 Gm Powd.Pack) 17 gm PO DAILY [facility] Last Admin: 08/05/24 07:29 Dose: 17 gm Documented By: MUNDO Sodium Chloride (0.9 % Sodium Chloride Flush 3 Ml Syringe) 3 ml IVFLUSH QSHIFT [facility] Last Admin: 08/05/24 07:30 Dose: 3 ml Documented By: MUNDO Labs 08/02/24 11:02 08/02/24 11:02 Microbiology Microbiology Results: Microbiology 08/02/24 21:15 Urine Culture - Final Urine clean catch - Clean Catch Midstream Procedures Date of Service Date of Service: 08/05/24 Progress Note: A&P Assessment and plan (1) Incarcerated right inguinal hernia: Status: Acute Plan POD #2 s/p Repair of large incarcerated right inguinal hernia with mesh. Continues to do well post op. Abd remains benignwith clean incision. Tolerating solid diet. Daily wound care for sacral ulcer. Transfer to [facility] today. Time Spent With Patient Time: Total time managing care of this patient today ____ minutes. Quality Stroke Does the patient have a stroke diagnosis?: No VTE Prior VTE?: No VTE Risk Level:: Surgical - moderate VTE Device Contraindication: N/A - Device Ordered VTE Drug Contraindication: Treatment Not Indicated
--- NOTE | 2024-08-05 10:36 | PM.DS ---
DS: Providers Provider Date of Service: 08/05/24 Date of admission: 08/02/24 15:30 Date of discharge: 08/05/24 Primary care physician: Ginna Guevara MD Attending physician on admission: Vicente Stearns Consults: 08/02/24 17:41 Consult to Wound Care Routine Reason for consultation: Wound on Coccyx. Attending physician on discharge: Vicente Stearns DS: Diagnosis Discharge Diagnosis (1) Incarcerated right inguinal hernia: Status: Acute DS: Summary Hospital Course Hospital Course: HPI AT ADMISSION: Sylvia Jimenez is a 78 year old female presenting with complaints of nausea and vomiting this morning after eating breakfast. She also reported an upset stomach. She denies a previous history of similar symptoms. She had a known history of a right inguinal hernia and had recently seen a surgeon for repair. The decision was made to observe the hernia at the time. She occasionally has some discomfort and notes the hernia to increase in decrease in size with activity. She denies a previous history of hernia surgery. CT abdomen and pelvis revealed a loop of small bowel within the right inguinal hernia sac with evidence of fecalization and distended small bowel proximal to the hernia suggestive of a small-bowel obstruction. HOSPITAL COURSE: She was admitted to the surgical service for further management of this incarcerated right inguinal hernia and secondary SBO. The hernia reduced in the ED. It was recommended to proceed with repair of this incarcerated right inguinal hernia the following day. 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 kiln setter was consulted. On 08/03/24, repair of large incarcerated right inguinal hernia with mesh was performed by Dr. Stearns without complication. The patient tolerated the procedure well. She had an uncomplicated recovery course. She was started on a bowel regimen. PT was consulted who recommended STR. She remained inpatient until POD #2 while awaiting placement/bed availability. On the day of discharge, she was tolerating a solid diet, she had minimal abd pain, she was passing flatus. Her abdomen was benign with a clean incision. She was discharged on 08/05/24 to STR. Wound care recommendations as below. Recommendations: 1. Turn and Reposition every 2 hours and as needed for patient comfort.? Use pillows or wedges to support off loading positions. 2. Off Load all bony prominences with use of pillows and heel boots if needed.? Apply Preventative foams where needed. ? 3. Monitor for incontinence and moisture control, use barrier creams when needed for prevention and treatment. 4. Provide adequate and supplemental nutrition.? 5. Order low air loss mattress. 6. When applicable maintain blood glucose levels per Providers order. 7. Bilateral Heels - Apply Skin Prep, Allow to dry. Cover wiht foam dressings change every 3-5 days and PRN. Elevate heels off of bed surface with pillows. 8. Posterior Head - Reposition and apply skin prep to sites to protect from friction. Daily. 9. Sacrum - Off Load Pressure - Cleanse and irrigate with NS, pat dry. Apply Triad to wound edges, lightly pack wound bed with Durafiber AG, Cover with Dry gauze and Foam dressing. Change every other day. Status at Discharge Functional status at discharge: uses cane/walker Overall status at discharge: patient is progressing back to baseline Time Attestation Discharge Coordination Time (in mins): 35 Quality: Safe Use of Opioids Does Pt have an Active Cancer Diagnosis on the Problem List?: No Quality: Stroke Does the patient have a stroke diagnosis?: No Physical Exam Vital Signs: Vital Signs: Last Vital Signs Temp 97 F 08/04/24 08:00 Pulse 72 08/04/24 08:00 Resp 18 08/04/24 08:00 BP 131/65 08/04/24 08:00 Pulse Ox 95 08/04/24 08:00 O2 Del Method Room Air 08/04/24 08:00 BMI result Body Mass Index 22.4 Const: General: comfortable, no acute distress and alert Resp: Effort & Inspection: normal respiratory effort GI: Inspection: No distended and Yes incision (clean, mild surrounding ecchymosis ) Palpation (GI): Soft to palpation and no guarding Skin: Other: [id number] sacral ulcer, beefy red wound base b/l small heel pressure injuries Neuro: General: moves all extremities DS: Data Data Completed and Pending Pending studies at discharge: Pending at discharge 08/03/24 13:42 Surgical [PTH] Routine Discharge Plan Discharge Anticipated Discharge Date/Time: 08/04/24 12:39 Patient Disposition: Xfer SNF Discharge Diagnosis: s/p right inguinal hernia repair Referrals: Ginna Guevara MD [Primary Care Provider] - Vicente Stearns MD [Physician] - 1 Week Discharge Medications: New oxycodone 5 mg tablet 5 mg PO Q6H PRN (Reason: pain (scale score 7-10)) Qty: 15 0RF Rx Instructions: Partial Fill upon patient request. docusate sodium [Colace] 100 mg capsule 100 mg PO BID Qty: 30 0RF Continued acetaminophen 325 mg Tablet 650 mg PO Q6H PRN (Reason: Pain) metronidazole 250 mg Tablet 750 mg PO Q6H Rx Instructions: x14 days end date 08/05/24 per [facility] levofloxacin 750 mg Tablet 750 mg PO DAILY Rx Instructions: x14 days end date 08/06/24 per [facility] Discharge Orders: Discharge Order (Routine); Ordered 08/05/24 Ordered By: Libertad Michelle Diet: Advance to usual diet Activity on Discharge: No heavy lifting Stand Alone Forms: Patient Portal Discharge page Print Language: Persian Activity Restrictions/Additional Instructions: If the incision area is tender, you may apply an ice pack for short intervals (No more than 20 minutes on, followed by at least 20 minutes off). Do not apply heat. Do not use creams, lotions, or topical antibiotics. Ok to shower. Remove clear dressings 3 days following your procedure. You have steri strips (small white cloth strips) covering your incision- these will fall off ~1 week. No heavy lifting (>10lbs) or strenuous activity! Take Tylenol Extra-strength 1-2 tabs every 6 hours for the first day, then as needed. Oxycodone every 6-8 hours as needed for pain. Colace 100 mg every day as needed for constipation. Follow up in office with Dr. Stearns in 1 week. ([phone]) Call Your Doctor If: -Your temperature exceeds 101.5? F -You experience excessive pain or swelling -You have an unexpected reaction to medication -You have excessive bleeding -You experience continued vomiting/nausea -Your incision begins to separate -Your incision shows signs of infection such as increased redness, swelling, excessive pain, drainage (light blood or clear fluid is normal) or heat Topical Wound Care Recommendations: Bilateral Heels - Apply Skin Prep, Allow to dry. Cover with foam dressings change every 3-5 days and PRN. Elevate heels off of bed surface with pillows. Posterior Head - Reposition and apply skin prep to sites to protect from friction. Daily. Sacrum - Off Load Pressure - Cleanse and irrigate with NS, pat dry. Apply Triad to wound edges, lightly pack wound bed with Durafiber AG, Cover with Dry gauze and Foam dressing. Change every other day. Recommend continued follow up with patient own outpt wound care provider for continued treatment. Care Plan Goals: Return to baseline health and resume normal activities following recovery period. Health Concerns: incarcerated right inguinal hernia sacral decbuitus ulcer Plan of Treatment: s/p repair of right inguinal hernia with mesh f/u in office in 1 week wound care Assessment: Doing well post op. Patient Instructions: Inguinal Hernia Repair (DC)
--- NOTE | 2024-08-05 10:48 | MHC.CM.PN ---
Addendum entered by Aurora Kaufman 08/05/24 12:43: [facility] HAS OBTAINED INSURANCE AUTH, BLS TRANSPORT HAS BEEN BOOKED FOR 4 PM VIA [facility]. RN/KARI AWARE. DAUGHTER/HCP IGLESIA NOTIFIED. Original Note: DP: PT HAS BEEN MEDICALLY CLEARED FOR DC TO STR AT [facility]. CM CONTINUES TO AWAIT INSURANCE AUTH FROM [facility].
[2024-08-05 16:00] VITALS: BP 124/68; PULSE 87; RESP 16; TEMP 36.7; O2SAT 94
== END 2024-08-05 17:10 | disposition skilled nursing facility (03) | DRG 350 ==
LOC: HO.ED 15:15 → HO.EDOVER 16:05 → HO.S3 17:01
PROVIDERS: Admitting Provider Surgery; Emergency Provider Emergency Medicine; PCP Internal Medicine; Visit Provider Surgery
PROC: 0YU50JZ Supplement Right Inguinal Region with Synthetic Substitute, Open Approach (ICD-10-PCS; CPT 49507; principal; 2024-08-03 12:20)
DX: K40.30 Unilateral inguinal hernia, with obstruction, without gangrene, not specified as recurrent (principal); L89.154 Pressure ulcer of sacral region, stage 4; Z79.899 Other long term (current) drug therapy
CPT/HCPCS: 49507; 36415; 74177; 80048; 80076; 81001; 81003; 83690; 84484; 85025; 87086; 88302; 93005; 97116; 97162; 97530; 99221; 99285; C1781; C9088; J0131; J0330; J0690; J1100; J1171; J2003; J2371; J2405; J2704; J2795; J3010; Q9967

== ENCOUNTER → 2024-08-02 10:47 | Outpatient (BNV) | payer MEDICARE, SELFPAY | PROVIDERS: Admitting Provider Surgery; Emergency Provider Emergency Medicine; PCP Internal Medicine; Visit Provider Internal Medicine Cardiovascular Disease | DX: R10.31 Right lower quadrant pain (principal) | CPT/HCPCS: 93010 ==

== ENCOUNTER → 2024-08-02 15:30 | Outpatient (BNV) | payer MEDICARE, SELFPAY | PROVIDERS: Admitting Provider Surgery; Emergency Provider Emergency Medicine; PCP Internal Medicine; Visit Provider Surgery | DX: K40.30 Unilateral inguinal hernia, with obstruction, without gangrene, not specified as recurrent (principal) | CPT/HCPCS: 49507; 99024; 99222 ==

== ENCOUNTER 2024-10-21 10:17 | Emergency (ER) | payer MEDICARE, SELFPAY ==
--- NOTE | ~2024-10-21 | CT_ITS ---
EXAMINATION: CT FACIAL BONES WITHOUT CONTRAST CLINICAL INFORMATION: Fall, pain COMPARISON: None available. TECHNIQUE: Axial 3 mm thin and reformatted 1.5 mm thin sagittal and coronal images of facial bones were obtained without contrast. This CT examination was performed using dose optimization techniques as appropriate, variously including the following: *Automated exposure control *Adjustment of mA and/or kV according to patient size (this includes techniques or standardized protocols for targeted exams where dose is matched to indication/reason for exam; i.e. extremities or head) *Use of iterative reconstruction technique DLP: 1216 mGy/cm. FINDINGS: There is normal aeration of bilateral paranasal sinuses and mastoid air cells. The bony sinus mcgowan and maxillofacial bones are normal. Mild deformity nasal bone but no fracture identified. Bony orbits, optic globe and periorbital soft tissues are normal. Bilateral TM joints and the mandible is normal. The soft tissues are normal. No abnormal neck mass, lymphadenopathy or hematoma. The airway is widely patent. The lung apices are clear. There is deformity of cervical spine as described on CT cervical spine. There is moderate right C2-3 facet joint arthropathy and hypertrophy. CT/CT facial bones wo IV con IMPRESSION: No acute intracranial process or discrete facial bone fracture. Electronically signed by: Luis F Stapleton MD 10/21/2024 01:59 PM KASH
--- NOTE | ~2024-10-21 | CT_ITS ---
EXAMINATION: CT HEAD WITHOUT CONTRAST CLINICAL INFORMATION: Fall, pain COMPARISON: None available. TECHNIQUE: Contiguous axial imaging was performed from the skull base to vertex without intravenous administration of contrast. This CT examination was performed using dose optimization techniques as appropriate, variously including the following: *Automated exposure control *Adjustment of mA and/or kV according to patient size (this includes techniques or standardized protocols for targeted exams where dose is matched to indication/reason for exam; i.e. extremities or head) *Use of iterative reconstruction technique DLP: 664 mGy/cm. FINDINGS: There is no acute intra-axial, extra-axial bleed, masses or midline shift. There is no acute infarction in evolution. The avendaño to white matter differentiation is maintained normal. The lateral ventricles are significantly enlarged but normal-appearing cortical sulci. The fourth ventricle appears normal. Question aqueductal stenosis/hydrocephalus. Bone windows reveal no calvarial abnormality. There is benign hyperostosis from talus interna. There is no scalp soft tissue abnormality. Bilateral paranasal sinuses and mastoid air cells are well-aerated. CT/CT head/brain wo IV con IMPRESSION: No acute intracranial process seen. Significant distended lateral ventricles, disproportionate to the third and fourth ventricle. Evaluate for obstructive hydrocephalus at the level of aqueduct or foramina of [place]. Electronically signed by: Luis F Stapleton MD 10/21/2024 01:44 PM KASH
--- NOTE | ~2024-10-21 | CT_ITS ---
EXAMINATION: CT CERVICAL SPINE WITHOUT CONTRAST CLINICAL INFORMATION: Fall, pain COMPARISON: None available. TECHNIQUE: 3 mm thin axial and 2 mm thin sagittal and coronal images of cervical spine were obtained without contrast This CT examination was performed using dose optimization techniques as appropriate, variously including the following: *Automated exposure control *Adjustment of mA and/or kV according to patient size (this includes techniques or standardized protocols for targeted exams where dose is matched to indication/reason for exam; i.e. extremities or head) *Use of iterative reconstruction technique DLP: 1216 mGy. FINDINGS: Sagittal reconstructed images there is straightening of cervical lordosis. 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 There is moderate loss of C6 vertebral heights and severe loss of C5-C6 and C6 -C7 disc heights. There is minimal posterior listhesis of the C6 over C7 vertebra. The craniovertebral junction and the C1-C2 alignment is normal. No visible acute fracture, dislocation or subluxation seen. There is mild narrowing of bilateral neural foramina at C6-C7 disc level from uncovertebral hypertrophic changes. The prevertebral soft tissues are normal. The lung apices are clear. The tracheal and pharyngeal airway is widely patent. Incidental finding of posterior occipital midline craniotomy and surgical hung in place from previous intervention. 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 Mild loss of C6 vertebral height. Severe degenerative disc changes with spondylosis C5-6 and C6-C7 disc levels. Fleischner guidelines were followed. Electronically signed by: Luis F Stapleton MD 10/21/2024 01:55 PM K[facility]
[2024-10-21 10:42] VITALS: BP 136/79; BP 150/90; PULSE 91; PULSE 95; RESP 18; TEMP 37.2; O2SAT 94; O2SAT 99; BMI 23.2
[2024-10-21 10:46] VITALS: BP 136/79; PULSE 91; RESP 18; TEMP 37.2; O2SAT 94
--- NOTE | 2024-10-21 10:46 | ED_ITS ---
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 Patient states that she was walking too quickly when she tripped over her own feet and fell, hitting her head. Patient denies any loss of consciousness. Patient denies any dizziness, lightheadedness, abdominal pain, nausea, vomiting, fever, chills, blurry vision, double vision, loss of vision, chest pain, difficulty breathing, shortness of breath, back pain, night sweats, pain with urination, increased urinary frequency, increased urinary urgency, blood in her urine or stool, syncope or a near syncopal episode, bowel incontinence, bladder incontinence, or any other complaints at this time. Relieving factors: none Exacerbating factors: none Associated symptoms: denies other symptoms Treatments prior to arrival: none Related Data Home Medications ?Medication ?Instructions ?Recorded ?Confirmed acetaminophen 325 mg tablet 650 mg PO Q6H PRN Pain 08/02/24 08/02/24 levofloxacin 750 mg tablet 750 mg PO DAILY 08/02/24 08/02/24 metronidazole 250 mg tablet 750 mg PO Q6H wound 08/02/24 08/02/24 Previous Rx's ?Medication ?Instructions ?Recorded docusate sodium 100 mg capsule 100 mg PO BID #30 caps 08/04/24 (Colace) oxycodone 5 mg tablet 5 mg PO Q6H PRN pain (scale score 08/04/24 7-10) #15 tabs cefuroxime axetil 500 mg tablet 500 mg PO BID 7 days #14 tabs 10/21/24 Allergies Allergy/AdvReac Type Severity Reaction Status Date / Time penicillin G Allergy Unknown Hives Verified 10/21/24 10:45 Review of Systems 2 Constitutional: Constitutional: Reports no additional constitutional complaints, Denies chills, Denies fever(s), Reports headache(s) and Denies night sweats Eyes: Eyes: Reports no additional eye complaints, Denies blurry vision, Denies change in vision, Denies diplopia, Denies eye discharge, Denies loss of vision and Denies eye pain ENT: Denies dizziness and Reports headache(s) Cardiovascular: Cardiovascular: Reports no additional cardiovascular complaints, Denies chest pain, Denies lightheadedness, Denies Loss of Consciousness and Denies dyspnea Respiratory: Respiratory: Reports no additional respiratory complaints and Denies dyspnea Gastrointestinal: Gastrointestinal: Reports no additional gastrointestinal complaints, Denies abdominal pain, Denies melena, Denies hematochezia, Denies change in bowel habits and Denies change in stool character Genitourinary: Genitourinary: Denies hematuria, Denies urinary frequency, Denies dysuria, Denies urinary incontinence, Denies urinary hesitancy and Denies urinary urgency Musculoskeletal: Musculoskeletal: Reports no additional musculoskeletal complaints, Denies numbness and Denies tingling Neurologic: Denies dizziness, Reports headache(s), Denies loss of vision, Denies numbness and Denies tingling Psychiatric: Psychiatric: Reports no additional psychiatric complaints Endocrine: Endocrine: Reports no additional endocrine complaints Hematologic/Lymphatic: Hematologic/Lymphatic: Reports no additional hematologic/lymphatic complaints Allergic/Immunologic: Allergic/Immunologic: Reports no additional allergic/immunologic complaints PMFSH Past Medical History Attestation statement: The following information was validated with the patient. (all information validated with the patient's daughter) Source: old records reviewed, obtained from family (patient's daughter provided additional history and confirmed the history provided by the patient.) and nursing notes reviewed Medical History Incarcerated right inguinal hernia Sacral decubitus ulcer, stage III Spinal stenosis Kidney stones Cystic mass of pancreas Surgical History H/O lithotripsy H/O brain surgery Total knee replacement status Previous back surgery Social History Social History Household Members: Other Housing: Assisted Living Facility Housing Other:: Independent living/ [facility] Are you a primary landcare officer to a significant other at home: No Do you presently have visiting nurse or other home services: No Patient Tobacco Use Status: Never used Tobacco Smoked in Last 30 Days: No Use of substances other than those prescribed or required for medical reasons: No Advance Directives: No Advance Directives Information Provided: Yes Do you have a plan to hurt others: No Plan service: No Physical Exam ED Vital Signs: Vital Signs - 24 hr 10/21/24 10:42 10/21/24 10:46 10/21/24 10:46 Temperature 99.0 F 99.0 F 99.0 F Pulse Rate 91 91 91 Respiratory Rate 18 18 18 Blood Pressure 136/79 136/79 136/79 Pulse Oximetry 94 94 94 Oxygen Delivery Method Room Air Room Air 10/21/24 15:44 Temperature 98.9 F Pulse Rate 93 Respiratory Rate 16 Blood Pressure 139/79 Pulse Oximetry 98 Oxygen Delivery Method Room Air BMI result Body Mass Index 23.2 Const General: cooperative, no acute distress, alert and awake Nutritional Appearance: well nourished Orientation/consciousness: patient oriented x3 Limitations: no limitations HENMT Head: Yes normal to inspection and Yes atraumatic Ears: hearing grossly normal bilaterally and external ears normal General nose exam: Normal external nose present, no nasal discharge noted and no epistaxis Face and sinus: Yes normal facial exam, No abrasion and No laceration Mouth: Normal oral and palatal mucosa present, no drooling and no muffled voice Eyes General: appearance normal, both eyes and all related structures Periorbital: periorbital findings normal Eyelids: Yes eyelids normal Conjunctivae: conjunctivae normal Pupils: Equal, round and reactive pupils present EOM: EOMs intact bilaterally Neck Neck: Yes normal visual inspection, Yes full ROM and Yes no lymphadenopathy Chest Chest palpation & inspection: normal inspection of the chest Resp Effort & Inspection: normal respiratory effort and able to speak in complete sentences GI Inspection: Yes normal to inspection Neuro General: patient oriented x3 and moves all extremities Cranial nerves: Yes Equal, round and reactive pupils present Cognition (Neuro): normal cognition Extrem General: Yes normal to inspection, Yes full ROM and Yes capillary refill normal Psych Appearance: grossly normal Mental Status: mental status grossly normal Affect: normal affect Attitude: cooperative Thought process: Normal thought process present Thought content: Normal thought content present Insight: Good insight present (Psych) Medications Administered Discontinued Medications Generic Name Dose Route Start Last Admin Trade Name Freq PRN Reason Stop Dose Admin Cefuroxime Axetil 500 mg 10/21/24 17:29 10/21/24 17:37 Cefuroxime Axetil 500 Mg Tablet PO 10/21/24 17:30 500 mg ONCE ONE Administration Sodium Chloride 1,000 mls @ 999 mls/hr 10/21/24 15:30 10/21/24 15:46 Ns IV 10/21/24 16:30 999 mls/hr .Q1H1M LUPIS Administration Medical Decision Making Medical Decision Making [facility] Narrative: Patient is an 79 year old assigned female at with a history of normal pressure hydrocephelus (per [facility]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 Patient's physical exam was unremarkable. Patient's blood work was unremarkable. Patient's urine is pending. Patient's EKG was unremarkable. Patient's CT head / c-spine / and facial bones showed multiple chronic findings including hydrocephelus with evidence of a previous craniotomy. I consulted with Dr. Guevara who reviewed the images and confirmed this was chronic for the patient and can be followed up on an outpatient basis. I explained my physical exam findings as well as all test results to the patient and the patient's daughter. I answered all questions asked by the patient and the patient's daughter. Patient has attempted to urinate multiple times but has not been able to go. Bladder scan showed just over 200ml. NS bolus ordered. Patient signed out to Dr. Sen pending UA. Urinalysis shows evidence of cystitis. Treated here with cefuroxime and prescribed a 7 day course. Patient ambulated with a walker without difficulty. Safe for discharge back to assisted living facility. Differential Diagnosis Differential Diagnoses: The differential diagnosis associated with the presentation includes Fall Weakness UTI Admission/Observation Consideration of admission/observation: Escalation of care including admission/observation considered Patient's disposition will be determined after urine results. Consult Healthcare Provider Management of the patient was discussed with: Booth Operator (spoke to the neurologist, Dr. Guevara, as noted in the MDM Rationale portion of this note.) Lab Data [facility] Lab Attestation statement: I reviewed the patient's lab results. My interpretation of these results are in the MDM Rationale portion of this note. 10/21/24 11:12 10/21/24 14:50 Labs: Lab Results 10/21/24 10/21/24 10/21/24 Range/Units 11:12 14:50 16:30 WBC 11.5 H (4.8-10.8) X10*3/uL RBC 4.39 (4.20-5.50) X10*6/uL Hgb 13.5 (12.0-16.0) g/dl Hct 40.2 (37.0-47.0) % MCV 91.6 (80.0-98.0) fL MCH 30.8 (27.0-33.0) pg MCHC 33.6 (31.0-35.0) g/dl RDW 14.2 (11.0-16.0) % Plt Count 310 D (160-400) X10*3/uL MPV 9.0 L (9.4-12.3) fL Immature Gran % (Auto) 0.3 (0.0-0.4) % Neut % (Auto) 83.9 H (45-73) % Lymph % (Auto) 5.0 L (20-40) % [place] % (Auto) 10.2 (2-11) % Eos % (Auto) 0.2 (0-4) % Baso % (Auto) 0.4 (0-2) % Lymph # (Auto) 0.6 L (1.2-4.9) X10*3/uL [place] # (Auto) 1.2 (0.1-1.2) X10*3/uL Eos # (Auto) 0.0 (0.0-0.4) X10*3/uL Baso # (Auto) 0.1 (0.0-0.2) X10*3/uL Abs Immat Gran (auto) 0.04 H (0.00-0.03) X10*3/uL Absolute Neuts (auto) 9.6 H (2.0-8.3) x10*3/uL Absolute Nucleated RBC 0.000 (0.0-0.012) X10*3/uL Nucleated RBC % (auto) 0.0 (0.0-0.2) /100WBC Sodium 139 (135-145) mmol/L Potassium 3.7 (3.3-5.1) mmol/L Chloride 104 (96-108) mmol/L Carbon Dioxide 27 (22-29) mmol/L Anion Gap 12 (12-20) BUN 14 (9-16) mg/dL Creatinine 0.64 (0.5-1.4) mg/dL Estim Creat Clear Calc 58.0 Estimated GFR > 60 Random Glucose 97 (60-115) mg/dL Calcium 9.2 D (8.4-10.2) mg/dL Magnesium 1.9 (1.6-2.6) mg/dL Total Bilirubin 1.1 H (0.0-1.0) mg/dL AST 21 (5-31) U/L ALT 9 (0-31) U/L Alkaline Phosphatase 72 (39-117) U/L Total Protein 7.0 (6.5-8.0) g/dL Albumin 3.9 (3.5-5.0) g/dL Urine Color Yellow Urine Appearance Cloudy Urine pH 7.0 (5.0-9.0) Ur Specific [place] 1.015 (1.005-1.025) Urine Protein 30 (1+) H (Neg-Trace) mg/dL Urine Glucose (UA) Negative (Negative) mg/dL Urine Ketones Negative (Negative) mg/dL Urine Blood Small (1+) H (Negative) Urine Nitrite Positive H (Negative) Ur Leukocyte Esterase Moderate (2+) H (Negative) Urine RBC 6-10 H (0-2) /HPF Urine WBC >50 H (0-5) /HPF Ur Squamous Epith Cells 0-2 (0-2) /HPF Urine Bacteria 4+ (None Seen) Hyaline Casts 0-2 (0-2) /LPF Influenza Type A (PCR) NEGATIVE (Negative) Influenza Type B (PCR) NEGATIVE (Negative) RSV RNA Qual (PCR) NEGATIVE (Negative) SARS-CoV-2 RNA (RT-PCR) NEGATIVE (Negative) Independent Interpretation I performed an independent interpretation of an: EKG and CT Scan Interpretation: My interpretation is in agreement with the radiologist's impression of these imaging studies. L Report Number: [id number]: Total DLP = 277.30 mGy-cm EXAMINATION: CT FACIAL BONES WITHOUT CONTRAST CLINICAL INFORMATION: Fall, pain COMPARISON: None available. TECHNIQUE: Axial 3 mm thin and reformatted 1.5 mm thin sagittal and coronal images of facial bones were obtained without contrast. This CT examination was performed using dose optimization techniques as appropriate, variously including the following: *Automated exposure control *Adjustment of mA and/or kV according to patient size (this includes techniques or standardized protocols for targeted exams where dose is matched to indication/reason for exam; i.e. extremities or head) *Use of iterative reconstruction technique DLP: 1216 mGy/cm. FINDINGS: There is normal aeration of bilateral paranasal sinuses and mastoid air cells. The bony sinus mcgowan and maxillofacial bones are normal. Mild deformity nasal bone but no fracture identified. Bony orbits, optic globe and periorbital soft tissues are normal. Bilateral TM joints and the mandible is normal. The soft tissues are normal. No abnormal neck mass, lymphadenopathy or hematoma. The airway is widely patent. The lung apices are clear. There is deformity of cervical spine as described on CT cervical spine. There is moderate right C2-3 facet joint arthropathy and hypertrophy. CT/CT facial bones wo IV con IMPRESSION: No acute intracranial process or discrete facial bone fracture. Electronically signed by: Luis F Stapleton MD 10/21/2024 01:59 PM [facility] Dictated By: Luis F Stapleton MD Signed By: Electronically signed by Luis F Stapleton MD 10/21/24 1359 Report Number: [id number]: Total DLP = 67.20 mGy-cm EXAMINATION: CT HEAD WITHOUT CONTRAST CLINICAL INFORMATION: Fall, pain COMPARISON: None available. TECHNIQUE: Contiguous axial imaging was performed from the skull base to vertex without intravenous administration of contrast. This CT examination was performed using dose optimization techniques as appropriate, variously including the following: *Automated exposure control *Adjustment of mA and/or kV according to patient size (this includes techniques or standardized protocols for targeted exams where dose is matched to indication/reason for exam; i.e. extremities or head) *Use of iterative reconstruction technique DLP: 664 mGy/cm. FINDINGS: There is no acute intra-axial, extra-axial bleed, masses or midline shift. There is no acute infarction in evolution. The avendaño to white matter differentiation is maintained normal. The lateral ventricles are significantly enlarged but normal- appearing cortical sulci. The fourth ventricle appears normal. Question aqueductal stenosis/hydrocephalus. Bone windows reveal no calvarial abnormality. There is benign hyperostosis from talus interna. There is no scalp soft tissue abnormality. Bilateral paranasal sinuses and mastoid air cells are well-aerated. CT/CT head/brain wo IV con IMPRESSION: No acute intracranial process seen. Significant distended lateral ventricles, disproportionate to the third and fourth ventricle. Evaluate for obstructive hydrocephalus at the level of aqueduct or foramina of [place]. Electronically signed by: Luis F Stapleton MD 10/21/2024 01:44 PM EST Dictated By: Luis F Stapleton MD Signed By: Electronically signed by Luis F Stapleton MD 10/21/24 1344 Report Number: [id number]: Total DLP = 263.74 mGy-cm EXAMINATION: CT CERVICAL SPINE WITHOUT CONTRAST CLINICAL INFORMATION: Fall, pain COMPARISON: None available. TECHNIQUE: 3 mm thin axial and 2 mm thin sagittal and coronal images of cervical spine were obtained without contrast This CT examination was performed using dose optimization techniques as appropriate, variously including the following: *Automated exposure control *Adjustment of mA and/or kV according to patient size (this includes techniques or standardized protocols for targeted exams where dose is matched to indication/reason for exam; i.e. extremities or head) *Use of iterative reconstruction technique DLP: 1216 mGy. FINDINGS: Sagittal reconstructed images there is straightening of cervical lordosis. 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 There is moderate loss of C6 vertebral heights and severe loss of C5-C6 and C6 -C7 disc heights. There is minimal posterior listhesis of the C6 over C7 vertebra. The craniovertebral junction and the C1-C2 alignment is normal. No visible acute fracture, dislocation or subluxation seen. There is mild narrowing of bilateral neural foramina at C6-C7 disc level from uncovertebral hypertrophic changes. The prevertebral soft tissues are normal. The lung apices are clear. The tracheal and pharyngeal airway is widely patent. Incidental finding of posterior occipital midline craniotomy and surgical hung in place from previous intervention. 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 Mild loss of C6 vertebral height. Severe degenerative disc changes with spondylosis C5-6 and C6-C7 disc levels. Fleischner guidelines were followed. Electronically signed by: Luis F Stapleton MD 10/21/2024 01:55 PM EST Dictated By: Luis F Stapleton MD Signed By: Electronically signed by Luis F Stapleton MD 10/21/24 3013 Radiology Impression Discussion of test interpretation with radiology: I have reviewed the radiologist's reading. Independent Historian Clinical information obtained from an independent historian. History obtained from or confirmed by: EMS (EMS provided additional history and confirmed the history provided by the patient.) and Other (Patient's daughter provided additional history and confirmed the history provided by the patient.) Discharge Plan Discharge Clinical Impression: Fall from slip, trip, or stumble, Cystitis Patient Disposition: Home, Self-Care Instructions: Fall Prevention (ED), Urinary Tract Infection in Older Adults (ED) Additional Instructions: You were evaluated after a fall and found to have urinary tract infection. We treated her with a dose of cefuroxime and provided a 7 day course. Please take the full course. If you develop any signs of allergic reaction, fever despite taking antibiotics for 2 days, increased weakness, recurrent falls or any other acute concerns. Prescriptions: New cefuroxime axetil 500 mg tablet 500 mg PO BID 7 Days Qty: 14 0RF No Action acetaminophen 325 mg Tablet 650 mg PO Q6H PRN (Reason: Pain) metronidazole 250 mg Tablet 750 mg PO Q6H Rx Instructions: x14 days end date 08/05/24 per [facility] levofloxacin 750 mg Tablet 750 mg PO DAILY Rx Instructions: x14 days end date 08/06/24 per [facility] oxycodone 5 mg tablet 5 mg PO Q6H PRN (Reason: pain (scale score 7-10)) Qty: 15 0RF Rx Instructions: Partial Fill upon patient request. docusate sodium [Colace] 100 mg capsule 100 mg PO BID Qty: 30 0RF Print Language: Sami
--- NOTE | 2024-10-21 10:49 | PC.NURSE ---
Pt comes to ED today s/p unwitnessed fall at [facility]. Pt reports she was walking too fast with her walker and lost her footing. She fell stirking her head and waiting for assistance to get up. Pt state she took two 200 Ibuprofens after the fall. She c/o PATRICK 01/30. A&Ox3, VSS Low grade fever. Pt arrives with no collar in place. Transfer paperwork placed in chart.
[2024-10-21 11:19] LABS: MANUAL DIFF FLAG NO
[2024-10-21 11:20] LABS: Basophils Absolute Auto 0.1 X10*3/uL (0.0-0.2); Basophils Percent Auto 0.4 % (0-2); Eosinophils Percent Auto 0.2 % (0-4); Hematocrit 40.2 % (37.0-47.0); Hemoglobin 13.5 g/dl (12.0-16.0); Imm Gran Abs Auto 0.04 X10*3/uL (0.00-0.03); Imm Gran Pct Auto 0.3 % (0.0-0.4); Lymphocytes Absolute Auto 0.6 X10*3/uL (1.2-4.9); Mean Corpuscular HGB Conc 33.6 g/dl (31.0-35.0); Mean Corpuscular Hemoglobin 30.8 pg (27.0-33.0); Mean Corpuscular Volume 91.6 fL (80.0-98.0); Monocytes Absolute Auto 1.2 X10*3/uL (0.1-1.2); Monocytes Percent Auto 10.2 % (2-11); Neutrophils Absolute Auto 9.6 x10*3/uL (2.0-8.3); Neutrophils Percent Auto 83.9 % (45-73); Platelet Count 310 X10*3/uL (160-400); Red Blood Count 4.39 X10*6/uL (4.20-5.50); Red Cell Distribution Width 14.2 % (11.0-16.0); White Blood Count 11.5 X10*3/uL (4.8-10.8)
[2024-10-21 12:07] LABS: Influenza A PCR NEGATIVE (Negative); Influenza B PCR NEGATIVE (Negative); Resp Syncy Virus RNA Qual PCR NEGATIVE (Negative); SARS COV2 PCR INHOUSE NEGATIVE (Negative)
--- OUTSIDE RECORDS SUMMARY | 2024-10-21 13:07 | XMS_ITS | Encounter Summary ---
Author Organization [facility] Address [address] [place] [address] Care Team Providers Care Surgeon'S Assistant Name Role Phone Janki Samaniego MD Primary Care Provider + [phone] Juliet Cross RN Unavailable [phone] Janki Samaniego MD Unavailable [phone] Janki Samaniego MD Unavailable + [phone] Alley Gay PA-C Unavailable [phone] Encounter Details Date Type Department Care Team (Late st Contact Info) Description 12/25/2018 Scanned Document [address] [place] [id number] Provider, Generic Social History Tobacco Use Types Packs/Day Years Used Date Smoking Tobacco: Never Assessed Sex and Gender Information Value Date Recorded Sex Assigned at Not on file Gender Identity Not on file Sexual Orientation Not on file documented as of this encounter Plan of Treatment Not on file documented as of this encounter Procedures Procedure Name Priority Date/Time Associated Diagnosis Comments IMAGING BREAST/BX/MAMMO 12/25/2018 documented in this encounter Results * IMAGING BREAST/BX/MAMMO (12/25/2018) Anatomical Region Laterality Modality Other Narrative 12/25/2018 Ordered by an unspecified provider. Generic Provider IMG LEGACY PROCEDURE S documented in this encounter Visit Diagnoses Not on filedocumented in this encounter Care Teams Surgeon'S Assistant Relationship Specialty Start Date End Date Janki Samaniego MD [address] [place] [address] PCP - General Internal Medicine 05/07/19 Janki Samaniego MD [address] [place] [address] PCP - [place] Medicare Attributed 03/07/21 Janki Samaniego MD [address] [place] [address] PCP - APNCT [employer] Attributed 09/23/22 03/22/24 Alley Gay PA-C [address] [address] PCP - APNCT [employer] Attributed 03/23/24 08/22/24 Juliet Cross, JACKLYN [address] [facility] [address] [place], [place] [id number] [facility] Community Accounts Receivable Associate 12/08/20 documented as of this encounter
--- OUTSIDE RECORDS SUMMARY | 2024-10-21 13:07 | XMS_ITS | Encounter Summary ---
Author Organization [facility] Address [address] [place] [address] Care Team Providers Care Wad Printing Machine Operator Name Role Phone Janki Samaniego MD Primary Care Provider + [phone] Jluiet Cross RN Unavailable [phone] Janki Samaniego MD Unavailable [phone] Janki Samaniego MD Unavailable [phone] Alley Gay PA-C Unavailable [phone] Encounter Details Date Type Department Care Team (Late st Contact Info) Description 10/06/2019 Scanned Document [facility] [address] [facility] [address] [place] [address] Janki Samaniego MD [address] [facility] [address] [place] [address] Social History Tobacco Use Types Packs/Day Years Used Date Smoking Tobacco: Never Smokeless Tobacco: Never Alcohol Use Standard Drinks/Week Comments Yes 7 (1 standard drink = 0.6 oz pur e alcohol) Sex and Gender Information Value Date Recorded Sex Assigned at Not on file Gender Identity Not on file Sexual Orientation Not on file documented as of this encounter Plan of Treatment Not on file documented as of this encounter Visit Diagnoses Not on filedocumented in this encounter Care Teams Wad Printing Machine Operator Relationship Specialty Start Date End Date Janki Samaniego MD [address] [place] [address] [address] [place] [address] PCP - General Internal Medicine 05/07/19 Janki Samaniego MD [address] [place] [address] PCP - [place] Medicare Attributed 03/07/21 Janki Samaniego MD [address] [place] [address] PCP - APNCT [place] [employer] Attributed 09/23/22 03/22/24 Alley Gay V., PAYordyC [address] [address] PCP - APNCT [place] [employer] Attributed 03/23/24 08/22/24 Juliet Cross, JACKLYN [address] [facility] [address] [place] [address] [facility] Community Can Runner 12/08/20 documented as of this encounter
--- OUTSIDE RECORDS SUMMARY | 2024-10-21 13:07 | XMS_ITS | Encounter Summary ---
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); Osteomyelitis of sacrum (CMS/HCC) Social History Tobacco Use Types Packs/Day Years Used Date Smoking Tobacco: Never Smokeless Tobacco: Never Alcohol Use Standard Drinks/Week Comments Not Currently 0 (1 standard drink = 0.6 oz pur e alcohol) specia occasions Sex and Gender Information Value Date Recorded Sex Assigned at Female 07/21/2024 3:07 PM EDT Gender Identity Female 07/21/2024 3:07 PM EDT Sexual Orientation Choose not to disclose 2023 3:07 PM EDT Job Start Date Occupation Industry Not on file Not on file Not on file documented as of this encounter Last Filed Vital Signs Vital Sign Reading Time Taken Comments Blood Pressure 143/73 10/20/2024 8:05 AM EST Pulse 94 10/20/2024 8:05 AM EST Temperature 36.7 ??C (98 ??F) 10/20/2024 8:05 AM EST Respiratory Rate 17 10/20/2024 8:05 AM EST Oxygen Saturation 92% 10/20/2024 8:05 AM EST Inhaled Oxygen Concentration - - Weight 53.5 kg (118 lb) 10/20/2024 8:05 AM EST Height 160 cm (5' 3 ) 10/20/2024 8:05 AM EST Body Mass Index 20.9 10/20/2024 8:05 AM EST documented in this encounter Progress Notes * Pilar Irvin RN - 10/20/2024 8:00 AM EST PROVIDER ORDERS Go to ER if you are presenting with fever, chills, increased redness, pain, swelling, warmth aroundwound area and/or foul smelling odor. If you have any questions or concerns, please contact the [facility] at . Follow up(s)/ Referrals: Infectious Disease: Follow up as scheduled Nursing Home: Home care: [facility] Additional Orders: Increase protein in your diet to help promote wound healing Edema Control: (If your compression wrap(s) feel to tight, please elevate your leg(s) about heart level. If your wrap(s) are becoming painful and/or you loose sensation of toes/ are having toe discoloration (a change from your baseline), please remove / unwrap compression and notify [facility] at . ) N/A Offloading: Turn and reposition every 2 hours. Reposition ever hour while up in chair., Limit pressure to woundas much as possible Negative Pressure Wound Therapy: (If wound vac is off/non functioning for more than 2 hours, please remove vac dressing, apply a wetto dry dressing and notify your home care agency) N/A Cellular/Tissue Based Products: N/A Bathing / Showering / Hygiene: Ok to shower with dressing on, then change dressing right after. Non-wound Condition/ Other Skin Care: N/A Wound Location(s): Wound #1 (Sacrum): Cleanser: Cleanse with Normal Saline Periwound: Apply Skin Prep to mich wound Topical: N/A Primary dressing: Collagen with Silver- will dissolve in wound. If not dissolving you may moisten with saline prior to covering. Secondary dressinx3 Foam border dressing Secure with: N/A Compression Therapy: N/A Dressing Change Frequency: Every Other Day * Destini Carballo RN - 10/20/2024 8:00 AM EST Discharge Patient directed to check out at front services agent and collect visit summary with wound care directions and book follow up as directed. Dressings applied: Cleanser: Cleanse with Normal Saline Periwound: Apply Skin Prep to mich wound Primary dressing: Collagen with Silver- will dissolve in wound. If not dissolving you may moisten with saline prior to covering. Secondary dressinx3 Foam border dressing Dressing technique was demonstrated and explained. Patient questions answered. 140/76, 98.3, 98, 18, 94%RA Pt discharge from wound care center without issue or incidence. documented in this encounter Plan of Treatment Upcoming Encounters Date Type Department Care Team (Late st Contact Info) Description 11/03/2024 10:30 AM EST Clinical Support [facility] [address] [place] [address] 11/24/2024 11:30 AM EST Office Visit [facility] [place] [address] [place] [address] Alon Tsai MD [address] [place], [place] [id number] Pending Results Name Type Priority Associated Diagnoses Date /Time Debridement Pressure Injury Sacrum Procedures Routine Stage IV pressure ulcer of sacral region ([facility]/HCC) Osteomyelitis of sacrum ([facility]) 10/20/2024 8:00 AM EST documented as of this encounter Goals Goal Patient Goal Type Associated Problems Recent Progress Patient-Stated? Author Decrease Wound Volume by X% by date (in notes) Care Plan Impaired Tissue No Pilar Irvin RN Patient and Caregiver Understand Wound Care Education Care Plan Impaired Tissue No Pilar Irvin limnologist volume breakdown reduced by X% by week 4 Care Plan Impaired Tissue No Pilar Irvin RN Wound volume breakdown reduced by X% by week 8 Care Plan Impaired Tissue Pilar Resendiz RN Wound volume breakdown reduced by X% by week 12 Care Plan Impaired Tissue Pilar Resendiz RN Quit using tobacco (cigarettes, smokeless, etc) Care Plan Education needed on impact of smoking on wound Pilar Resendiz RN Reduce tobacco use (cigarettes, smokeless, etc) Care Plan Education needed on impact of smoking on wound Pilar Resendiz RN Decrease Wound Volume by X% by date (in notes) Care Plan Education needed on impact of smoking on wound Pilar Resendiz RN Patient and Caregiver Understand Wound Care Education Care Plan Education needed related to ulceration/compr omised skin integrity. 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 Medication Sig Dispensed Refills Start Date End Date multivitamin tablet Take 1 tablet by mouth 1 (one) time each day. ibuprofen (ADVIL,MOTRIN) 200 mg tablet Take by mouth every 6 (six) hours if needed. added in this encounter Additional Health Concerns Active Problems Noted Date Diagnosed Date Impaired Tissue 10/20/2024 Education needed on impact of smoking on wound 0 10/20/2024 Education needed related to ulceration/compromised skin integrity. 10/20/2024 Assessment Noted Time PHQ-9 Depression Total Score: 0 10/20/19 25 8:13 AM EST documented as of this encounter
--- OUTSIDE RECORDS SUMMARY | 2024-10-21 13:07 | XMS_ITS | Encounter Summary ---
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 Go to ER if present with fever, shaking, chills, increased redness, or excess drainage. If you have any questions or concerns, please contact the wound center at Dept: [phone] [facility]: Saim[place] [phone] three time weekly for comprehensive skilled wound [facility]itent[facility] Health: Refer to Home Health for Detention Services Fax orders to Home Health Go to ER if present with fever, shaking,chills, increased redness, or excess drainage. If you have any questions or concerns please contact the wound center at Dept: [phone]. Hand Hygiene: (W)bernardo hands before and after wound care. WOUND #1 coccyx wound Wound Cleansing & Dressings: Change three times per week and PRN Cleanse wound with normal saline Triad to yolanda-wound Primary dressing: Loosely pack with Promogran Secondary dressing: Aquacel Secure with: foam dressing Off-Loading: Off Loading: Keep pressure off affected area as much as possible. Evaluate and treat for offloading surfaces, prescription provided Reposition at least every 2 hours. Avoid position directing pressure to wound site. Diet: Increase protein intake Misc/Additional orders: Misc/Additional orders: Prescription E-Scribed to patient pharmacy MRI reviewed today with patient and son. 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 Office Visit Visit Date: 09/29/2024 Patient Name: Sylvia Jimenez Date of : 1945 PCP: Janki Samaniego MD HPI: Sylvia Jimenez is a 78 y.o. female who presents to the wound care center for follow up evaluation of sacralcoccygeal ulceration. She has tolerated dressing changes well with VNA support. She denies any unusual symptomatology related to her wound. 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);COMMENT:dermoid cyst of cerebellum Cataract DX:Cataract COVID-19 vaccine administered DX:COVID-19 vaccine administered;COMMENT:MODERNA 01/04/21, 02/02/21, 09/04/21, 01/03/22 Hypertension DX:Hypertension IBS (irritable bowel syndrome) DX:IBS (irritable bowel syndrome) Lumbar spinal stenosis DX:Lumbar spinal stenosis;COMMENT:had lumbar surgery in 2015, resolved Meningocele (CMS/HCC) 1958 DX:Meningocele (HCC);COMMENT:RT brain surgery Osteoarthritis DX:Osteoarthritis Osteoporosis DX:Osteoporosis Patient Active Problem List Diagnosis 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 No current facility-administered medications on file prior to visit. ROS Review of Systems Constitutional: Negative. HENT: Negative. Respiratory: Negative. Cardiovascular: Negative. Gastrointestinal: Negative. Endocrine: Negative. Skin: Positive for wound. Psychiatric/Behavioral: Negative. Vital Signs: Visit Vitals BP (!) 144/77 (BP Location: Left arm, Patient Position: Sitting) Pulse 63 Temp 36.8 ??C (98.2 ??F) (Tympanic) Smoking Status Never PHYSICAL EXAM Physical Exam Constitutional: Appearance: Normal appearance. HENT: Head: Normocephalic and atraumatic. Cardiovascular: Rate and Rhythm: Normal rate. Pulmonary: Effort: Pulmonary effort is normal. Abdominal: General: Abdomen is flat. Skin: General: Skin is warm and dry. Findings: Wound present. Comments: Sacrococcygeal wound with undermining and full-thickness tissue injury. Minimal fibrin and slough attached to wound base. No fluctuance, bogginess or induration noted. Neurological: Mental Status: She is alert. Psychiatric: Mood and Affect: Mood normal. Behavior: Behavior normal. Wound: Described wound is improving WOUND ASSESSMENT If photograph of wound not visible on this note, please check under Media tab. Wound Pressure Injury 07/31/24 Sacrum (Active) Wound Image 07/31/24 1138 Wound Bed Tissue Assessment Yellow;Red 09/29/24 1100 Yolanda-Wound Assessment Intact;Moist 09/29/24 1100 Shape Round 09/29/24 1100 Wound Length (cm) 1.3 cm 09/29/24 1100 Wound Width (cm) 1.3 cm 09/29/24 1100 Wound Surface Area (cm^2) 1.69 cm^2 09/29/24 1100 Wound Depth (cm) 2.2 cm 09/29/24 1100 Wound Volume (cm^3) 3.718 cm^3 09/29/24 1100 Wound Healing % 94 09/29/24 1100 Drainage Description Serosanguineous 09/08/24 1000 Drainage Amount Large 09/29/24 1100 Treatments Cleansed;Site care 09/29/24 1100 Dressing Silver dressing 08/14/24 1000 Dressing Changed Changed 09/29/24 1100 Dressing Status Old drainage;New drainage 09/08/24 1000 Wound Bed Granulation (%) 90 % 09/29/24 1100 Wound Bed Slough (%) 10 % 09/29/24 1100 Tunneling 2.3 cm 09/29/24 1100 Tunneling Clock Position of Wound 2 o'clock 09/29/24 1100 Undermining 2.5 cm 08/27/24 1400 Underming Start Clock Position of Wound 12 o'clock 08/27/24 1400 Underming End Clock Position of Wound 3 o'clock 08/27/24 1400 Edges Well-defined edges 09/29/24 1100 Non-staged Wound Description Full thickness 09/29/24 1100 Pressure Injury Stage U 09/29/24 1100 Pertinent Labs: No results found for: ALB , WBC , PREALBUMIN , HEMOGLOBIN A1C , POCT GLUCOSE Debridement Note: Debridement Pressure Injury Sacrum Performed by: Lisseth Mancia NP Authorized by: Lisseth Mancia NP Associated wounds: Wound Pressure Injury 07/31/24 Sacrum Consent: Consent obtained: Written Consent given by: Patient Risks discussed: Yes Time out: Immediately prior to the procedure a time out was called Time out performed at: 09/29/2024 12:00 PM Debridement Details: Performed by: GRADING MACHINE OPERATOR Type: conservative sharp Pain control: Lidocaine 5% Pain control administration: topical anesthesia Severity of Tissue Pre Debridement: Fat layer exposed Severity of Tissue Post Debridement: Fat layer exposed Time taken: 09/29/2024 11:00 AM Length (cm): 1.3 Width (cm): 1.3 Depth (cm): 2.2 Area (cm^2): 1.69 Time taken: 09/29/2024 11:01 AM Length (cm): 1.3 Width (cm): 1.3 Depth (cm): 2.2 Percent Debrided (%): 100 Surface Area (cm^2): 1.69 Area Debrided (cm^2): 1.69 Volume (cm^3): 3.72 Tissue and other material debrided: dermis, epidermis and subcutaneous tissue Devitalized tissue debrided: exudate, fibrin and slough Instrument: Curette Amount of bleeding: medium Hemostasis obtained with: Pressure Procedural pain: 0 Post-procedural pain: 0 Response to treatment: Procedure was tolerated well PLAN OF CARE No diagnosis found. Provider Orders: Patient Instructions PHYSICIAN ORDERS and applied as treatment in Wound Center at todays visit. Go to ER if present with fever, shaking, chills, increased redness, or excess drainage. If you have any questions or concerns, please contact the wound center at Dept: [phone] [facility]: Saima [phone] three time weekly for comprehensive skilled wound penitentiary Health: Refer to Home Health for Detention Services Fax orders to Home Health Go to ER if present with fever, shaking,chills, increased redness, or excess drainage. If you have any questions or concerns please contact the wound center at Dept: [phone]. Hand Hygiene: (W)bernardo hands before and after wound care. WOUND #1 coccyx wound Wound Cleansing & Dressings: Change three times per week and PRN Cleanse wound with normal saline Triad to yolanda-wound Primary dressing: Loosely pack with Promogran Secondary dressing: Aquacel Secure with: foam dressing Off-Loading: Off Loading: Keep pressure off affected area as much as possible. Evaluate and treat for offloading surfaces, prescription provided Reposition at least every 2 hours. Avoid position directing pressure to wound site. Diet: Increase protein intake Misc/Additional orders: Misc/Additional orders: Prescription E-Scribed to patient pharmacy MRI reviewed today with patient and son. Referral placed to Infectious disease: 09/29/23 APPOINTMENT Goals for the wound(s): -Healing goal is a reduction in wound volume of 30% at 4 weeks, 50% at 8 weeks, 75% at 12 weeks, and 100% at 16 weeks. Will continually reassess and adjust the treatment strategy if not on the healing curve. Potential to heal: Good potential to Heal Plan: Continue with Promogran dressing as contact. All questions were answered to her satisfaction. She was counseled regarding my impressions, instructions for management, and the importance of compliance with treatment. The wound will be continually assessed for the presence of infection. If infection is suspected, appropriate intervention or referral to infection disease specialist will be considered. The patient has been educated concerning the need for increased protein in her diet for wound healing. It is also recommended that she work with her PCP to optimize her metabolic status and glycemic control as appropriate. Follow up in about 2 weeks (around 10/13/2024). 09/29/2024 1:00 PM EST Lisseth Mancia NP documented in this encounter Plan of Treatment Upcoming Encounters Date Type Department Care Team (Late st Contact Info) Description 11/03/2024 10:30 AM EST Clinical Support [facility] [address] [place] [address] 11/24/2024 11:30 AM EST Office Visit Infectious Disease - [place] [address] [place] [address] Alon Tsai MD [address] [place] [address] documented as of this encounter Procedures Procedure Name Priority Date/Time Associated Diagnosis Comments DEBRIDEMENT Routine 09/29/2024 11:15 AM EST Stage IV pressure ulcer of sacral region (CMS/HCC) documented in this encounter Results * Debridement Pressure Injury Sacrum (09/29/2024 11:15 AM EST) Narrative Lisseth Mancia NP - 09/29/2024 11:15 AM EST Lisseth Mancia NP ? 09/29/2024 ??1:05 PM Debridement Pressure Injury Sacrum Performed by: Lisseth Mancia NP Authorized by: Lisseth Mancia NP ?? Associated wounds: Wound Pressure Injury 07/31/24 Sacrum Consent: ??Consent obtained: ??Written ??Consent given by: ??Patient ??Risks discussed: Yes ?? Time out: Immediately prior to the procedure a time out was called ?? Time out performed at: ??09/29/2024 12:00 PM Debridement Details: ??Performed by: ??GRADING MACHINE OPERATOR ??Type: conservative sharp ?Pain control: ??Lidocaine 5% ??Pain control administration: topical anesthesia ?Severity of Tissue Pre Debridement: ??Fat layer exposed ??Severity of Tissue Post Debridement: ??Fat layer exposed ??Time taken: ??09/29/2024 11:00 AM ??Length (cm): ??1.3 ??Width (cm): ??1.3 ??Depth (cm): ??2.2 ??Area (cm^2): ??1.69 ??Time taken: ??09/29/2024 11:01 AM ??Length (cm): ??1.3 ??Width (cm): ??1.3 ??Depth (cm): ??2.2 ??Percent Debrided (%): ??100 ??Surface Area (cm^2): ??1.69 ??Area Debrided (cm^2): ??1.69 ??Volume (cm^3): ??3.72 ??Tissue and other material debrided: dermis, epidermis and subcutaneous tissue ?Devitalized tissue debrided: exudate, fibrin and slough ?Instrument: ??Curette ??Amount of bleeding: medium ?Hemostasis obtained with: ??Pressure ??Procedural pain: ??0 ??Post-procedural pain: ??0 ??Response to treatment: ??Procedure was tolerated well Lisseth Mancia GRADING MACHINE OPERATOR IN CLINIC/BEDSIDE OR DERABLES documented in this encounter Visit Diagnoses Diagnosis Stage IV pressure ulcer of sacral region (CMS/HCC)- Primary documented in this encounter
--- OUTSIDE RECORDS SUMMARY | 2024-10-21 13:07 | XMS_ITS | Encounter Summary ---
Author Organization [facility] Address [address] [place] [address] Care Team Providers Care Tobacco Grader Name Role Phone Janki Samaniego MD Primary Care Provider + [phone] Juliet Cross RN Unavailable [phone] Janki Samaniego MD Unavailable [phone] Janki Samaniego MD Unavailable [phone] Alley Gay PA-C Unavailable [phone] Encounter Details Date Type Department Care Team (Late st Contact Info) Description 12/27/2020 Scanned Document [address] [place] [phone] Provider, Generic Social History Tobacco Use Types Packs/Day Years Used Date Smoking Tobacco: Never Smokeless Tobacco: Never Alcohol Use Standard Drinks/Week Comments Yes 7 (1 standard drink = 0.6 oz pur e alcohol) PHQ-2 Answer Date Recorded PHQ-2 Total Score 0 04/22/2020 Sex and Gender Information Value Date Recorded Sex Assigned at Not on file Gender Identity Not on file Sexual Orientation Not on file documented as of this encounter Plan of Treatment Not on file documented as of this encounter Procedures Procedure Name Priority Date/Time Associated Diagnosis Comments IMAGING BREAST/BX/MAMMO 12/27/2020 documented in this encounter Results * IMAGING BREAST/BX/MAMMO (12/27/2020) Anatomical Region Laterality Modality Other 12/27/2020 Narrative 12/27/2020 Ordered by an unspecified provider. Generic Provider IMG LEGACY PROCEDURE S documented in this encounter Visit Diagnoses Not on filedocumented in this encounter Care Teams Tobacco Grader Relationship Specialty Start Date End Date Janki Samaniego MD [address] [place] [address] PCP - General Internal Medicine 05/07/19 Janki Samaniego MD [address] [place] [address] PCP - [employer] Attributed 03/07/21 Janki Samaniego MD [address] [place] [address] PCP - APNCT [employer] Attributed 09/23/22 03/22/24 Alley Gay PA-C [address] [address] PCP - APNCT [employer] Attributed 03/23/24 08/22/24 Juliet Cross, RN [address] [facility] [address] [place] [address] [facility] [employer]ist 12/08/20 documented as of this encounter
--- OUTSIDE RECORDS SUMMARY | 2024-10-21 13:07 | XMS_ITS | Encounter Summary ---
Author Organization [facility] Address [address] [place] [address] Care Team Providers Care Industrial Maintenance Instructor Name Role Phone Janki Samaniego MD Primary Care Provider + [phone] Juliet Cross RN Unavailable [phone] Janki Samaniego MD Unavailable [phone] Janki Samaniego MD Unavailable [phone] Alley Gay PA-C Unavailable [phone] Reason for Visit * Reason Comments Medication Refill Encounter Details Date Type Department Care Team (Late st Contact Info) Description 09/22/2019 Refill [facility] [address] [address] Janki Samaniego MD [address] [place] [address] Essential hypertension Social History Tobacco Use Types Packs/Day Years [...] documented as of this encounter Visit Diagnoses Diagnosis Essential hypertension Unspecified essential hypertension documented in this encounter Care Teams Industrial Maintenance Instructor Relationship Specialty Start Date End Date Janki Samaniego MD [address] [place] [phone] PCP - General Internal Medicine 05/07/19 Janki Samaniego MD [address] [place] [address] PCP - [employer] Attributed 03/07/21 Janki Samaniego MD [address] [place] [address] PCP - APNCT [employer] Attributed 09/23/22 03/22/24 Alley Gay PA-C [address] [address] PCP - APNCT [employer] Attributed 03/23/24 08/22/24 Juliet Cross, JACKLYN [address] [facility] [address] [place] [address] [employer] Crew Member 12/08/20 documented as of this encounter
--- OUTSIDE RECORDS SUMMARY | 2024-10-21 13:07 | XMS_ITS | Encounter Summary ---
Author Organization [facility] Address [address] [place] [address] Care Team Providers Care Electrician Apprentice Name Role Phone Janki Samaniego MD Primary Care Provider [phone] Juliet Cross RN Unavailable [phone] Janki Samaniego MD Unavailable [phone] Janki Samaniego MD Unavailable [phone] Alley Gay PA-C Unavailable [phone] Reason for Visit * Reason Comments Medication Refill Encounter Details Date Type Department Care Team (Late st Contact Info) Description 12/15/[address] [address] Glen Hurley MD [address] [place], [place] [id number] Essential hypertension Social History Tobacco Use Types [...] hypertension documented in this encounter Care Teams Electrician Apprentice Relationship Specialty Start Date End Date Janki Samaniego MD [address] [place], [place] [id number] PCP - General Internal Medicine 05/07/19 Janki Samaniego MD [address] [place] [address] PCP - [place] Medicare Attributed 03/07/21 Janki Samaniego MD [address] [place] [address] PCP - [facility] [place] Medicare Attributed 09/23/22 03/22/24 Alley Gay PA-C [address] [address] PCP - [facility] [place] Medicare Attributed 03/23/24 08/22/24 Juliet Cross, JACKLYN [address] [facility] [address] [place] [address] [facility] Community Lighting Adviser 12/08/20 documented as of this encounter
--- OUTSIDE RECORDS SUMMARY | 2024-10-21 13:07 | XMS_ITS | Encounter Summary ---
Author Organization [facility] [place] [address] Care Team Providers Care Poultry Farm Worker Name Role Phone Unavailable Primary Care Provider Unavailabl e Reason for Visit * Reason Comments Follow-up Encounter Details Date Type Department Care Team (Late st Contact Info) Description 09/29/2024 10:30 AM EST Office Visit Infectious Disease - [facility] [address] [place] [address] Alon Tsai MD [address] [place], [place] [id number] Decubitus ulcer, unstageable with infection (CMS/HCC) (Primary Dx) Social History Tobacco Use [...] Sign Reading Time Taken Comments Blood Pressure 148/79 09/29/2024 10:35 AM EST Pulse 78 09/29/2024 10:31 AM EST Temperature 36.7 ??C (98 ??F) 09/29/2024 10:31 AM EST Respiratory Rate - - Oxygen Saturation 96% 09/29/2024 10:31 AM EST Inhaled Oxygen Concentration - - Weight 53.1 kg (117 lb) 09/29/2024 10:31 AM EST Height 161.3 cm (5' 3.5 ) 09/29/2024 10:31 AM ES T Body Mass Index 20.4 09/29/2024 10:31 AM EST documented in this encounter Progress Notes * Alon Tsai MD - 09/29/2024 10:30 AM EST Patient will be observed off of antimicrobial therapy and should follow-up with wound care regularly. Patient return to this clinic in 2 months and before that time have checked sedimentation rate and C-reactive protein. * Alon Tsai MD - 09/29/2024 10:30 AM EST INFECTIOUS DISEASE PROGRESS NOTE Sylvia Jimenez 1945 Date of Visit: 09/29/2024 SUBJECTIVE: 78-year-old female hypertension, lumbosacral stenosis, has stage IV pressure ulcer and moved [place]. Patient MRI of the pelvis without contrast August 12, 2024 showing a 5 x 1.8 x 6 cm sacral decubitus ulcer extending down to bone with suggestion of mild osteomyelitis of S4 and S5 cornua with surrounding soft tissue enhancement and inflammatory changes without abscess along with mild enhancement within the medial aspect of the gluteus michael muscles that could be reactive or representinfectious myositis. Patient was seen by infectious disease August 18, 2024 without that she had an abnormal MRI with sacral decubitus ulcer, osteomyelitis of the S4-S5: And ID recommended treatment for skin and soft tissue infection with Augmentin 8 and 75 mg orally twice daily for 7-day duration and reestablishing wound care services and return to this clinic in 2 weeks. Patient appears today for follow- up appointment. REVIEW OF SYSTEMS: She denies fever, chills, chest pain, back pain, nausea, vomiting, diarrhea, headache, focal weakness or numbness. CURRENT MEDS: Current Outpatient Medications Medication Sig Dispense Refill acetaminophen (TYLENOL) 500 mg tablet Take by mouth. No current facility-administered medications for this visit. VITAL SIGNS Vitals: 09/29/24 1035 BP: (!) 148/79 Pulse: Temp: SpO2: PHYSICAL EXAM: GEN: She is no acute distress. RESP: Lungs are clear to auscultation bilaterally P SUPERVISOR MACHINE SETTER: Heart has regular rate and no murmur is heard. ABD: Abdomen is soft positive bowel sounds are heard. Approximately 0.5 circular ulceration is noted in the sacrum without surrounding erythema or edema. EXT: Lower extremities with no edema. ACTIVE PROBLEMS: Patient Active Problem List Diagnosis Stage IV pressure ulcer of sacral region (CMS/HCC) Osteomyelitis of sacrum (CMS/HCC) HISTORY: Immunization History Administered Date(s) Administered COVID-19 (Moderna/Spikevax) 12yo and older 07/17/2023 Influenza Quadravalent, 0.5ml (Fluad) 65yo and older 06/02/2020, 06/26/2022 Influenza Quadravalent, 0.5ml (Fluzone High-dose) 65yo and older 06/13/2021, 07/17/2023 Influenza Quadrivalent, 0.5ml, preservative free (Fluarix; FluLaval; Fluzone) ages 6mo and older (Afluria) 3yo and older 06/13/2021 Influenza trivalent, with preservative (Fluzone; Afluria) 6mo and older 06/28/2016 Influenza, Unspecified 06/10/2019, 06/10/2019 Moderna SARS-CoV-2 COVID-19, mRNA, LNP-S, preservative free 01/04/2021, 02/02/2021, 09/04/2021, 01/03/2022 Pneumococcal conjugate 13 valent (Prevnar 13, PCV13) 2mo and older 06/03/2018 Pneumococcal polysaccharide 23 valent (Pneumovax 23) 2yo and older 06/10/2019 LABS: ROUTINE / SCREENING: Result Date Comment HLAB 5701: Pneumovax: Prevnar: TB: RPR: HBV: HCV: PAPER INSERTER: G6PD screen HIV Genotype/Pheno HIV Ab ASSESSMENT: Infected Sacral Decubitus Ulcer: This patient has sacral decubitus ulcer infection with associated osteomyelitis. She is status post 7 days of therapy with Augmentin. She is now followed by wound care who notes no active infection. PLAN: I told the patient that she could be observed off of antimicrobial therapy and should follow-up with wound care regularly. I will ask her to return to this clinic in 2 months before that time have checked sedimentation rate and C- reactive protein. documented in this encounter Plan of Treatment Upcoming Encounters Date Type Department Care Team (Late st Contact Info) Description 11/03/2024 10:30 AM EST Clinical Support [facility] [address] [place] [address] 11/24/2024 11:30 AM EST Office Visit Infectious Disease - [facility] [address] [place] [address] Alon Tsai MD [address] [place], [place] [id number] Scheduled Orders Name Type Priority Associated Diagnoses Orde r Schedule Sedimentation rate Lab Routine Decubitus ulcer, unstageable with infection (CMS/HCC) 1 Occurrences starting 09/29/2024 until 09/29/2025 C-reactive protein Lab Routine Decubitus ulcer, unstageable with infection (CMS/HCC) 1 Occurrences starting 09/29/2024 until 09/29/2025 documented as of this encounter Visit Diagnoses Diagnosis Decubitus ulcer, unstageable with infection (CMS/HCC)- Primary documented in this encounter
--- OUTSIDE RECORDS SUMMARY | 2024-10-21 13:08 | XMS_ITS | Encounter Summary ---
Author Organization [facility] Address [address] [place] [address] Care Team Providers Care Insulation Engineman Name Role Phone Janki Samaniego MD Primary Care Provider [phone] Janki Samaniego MD Unavailable [phone] Janki Samaniego MD Unavailable [phone] Alley Gay PA-C Unavailable [phone] Encounter Details Date Type Department Care Team (Late st Contact Info) Description 11/26/[address] [facility] [address] [facility] [address] [place] [address] Janki Samaniego MD [address] [facility] [address] [place] [address] Social History Tobacco Use Types Packs/Day Years Used Date Smoking Tobacco: Never Smokeless Tobacco: Never Alcohol Use Standard Drinks/Week Comments Yes 7 (1 standard drink = 0.6 oz pur e alcohol) About 4 oz per night PHQ-2 Answer Date Recorded PHQ-2 Total Score 0 04/22/2020 Sex and Gender Information Value Date Recorded Sex Assigned at Not on file Gender Identity Not on file Sexual Orientation Not on file documented as of this encounter Plan of Treatment Not on file documented as of this encounter Visit Diagnoses Not on filedocumented in this encounter Care Teams Insulation Engineman Relationship Specialty Start Date End Date Janki Samaniego MD [address] [facility] [address] [place] [address] PCP - General Internal Medicine 05/07/19 Janki Samaniego MD [address] [place] [address] PCP - [place] Medicare Attributed 03/07/21 Janki Samaniego MD [address] [place] [address] PCP - APNCT [place] Medicare Attributed 09/23/22 03/22/24 Alley Gay PA-C [address] [address] PCP - APNCT [place] Medicare Attributed 03/23/24 08/22/24 documented as of this encounter
--- OUTSIDE RECORDS SUMMARY | 2024-10-21 13:08 | XMS_ITS | Clinical Summary ---
Author Organization [address] Address [address] [place] [address] Phone Care Team Providers Care Syrup Mixer Helper Name Role Phone Unavailable Primary Care Provider Unavailabl e Allergies Active Allergy Reactions Criticality Noted Date Comments Penicillins Hives Medium 01/31/2016 Medications Medication Sig Dispensed Refills Start Date End Date Status acetaminophen (TYLENOL) 500 mg tablet Take by mouth. 12/05/2023 Active ibuprofen (ADVIL,MOTRIN) 200 mg tablet Take by mouth every 6 (six) hours if needed. Active multivitamin tablet Take 1 tablet by mouth 1 (one) time each day. Active Active Problems Problem Noted Date Diagnosed Date Osteomyelitis of sacrum 08/14/2024 Stage IV pressure ulcer of sacral region 024 Encounters Date Type Department Care Team Description 10/20/2024 8:00 AM EST Office Visit [facility] [address] [place] [phone] Aries Isabel PA Stage IV pressure ulcer of sacral region (CMS/HCC) (Primary Dx); Osteomyelitis of sacrum (CMS/HCC) 09/29/2024 11:15 AM EST Office Visit [facility] [address] [place] [address] Lisseth Mancia NP Stage IV pressure ulcer of sacral region (CMS/HCC) (Primary Dx) 09/29/2024 10:30 AM EST Office Visit [facility] [place] [address] [place] [address] Alon Tsai MD Decubitus ulcer, unstageable with infection (CMS/HCC) (Primary Dx) 09/08/2024 10:45 AM EST Office Visit [facility] [address] [place] [phone] Lisseth Mancia, SHERRY Stage IV pressure ulcer of sacral region (CMS/HCC) (Primary Dx) 08/31/2024 Telephone Infectious Disease [facility] [address] [place] [address] Billy Chavez MA Appointment 08/27/2024 1:45 PM EST Office Visit [facility] [address] [place] [phone] Lisseth Mancia, SHERRY Osteomyelitis of sacrum (CMS/HCC) (Primary Dx); Stage IV pressure ulcer of sacral region (CMS/HCC) 08/24/2024 Telephone [facility] [address] [place] [phone] Elvira Bryan MA call daughter only 08/18/2024 10:30 AM EST Office Visit [facility] [address] [place] [address] Edyta Godwin MD Stage IV pressure ulcer of sacral region (CMS/HCC); Osteomyelitis of sacrum (CMS/HCC) 08/14/2024 10:45 AM EST Office Visit [facility] [address] [place] [phone] Chantelle Villegas PA Stage IV pressure ulcer of sacral region (CMS/HCC) (Primary Dx); Osteomyelitis of sacrum (CMS/HCC) 08/10/2024 10:55 AM EST - 08/10/2024 11:59 PM EST Hospital Encounter [facility] MRI [address] [facility] [place] [phone] Stage IV pressure ulcer of sacral region (CMS/HCC) Discharge Disposition: Home or Self Care 07/31/2024 11:00 AM EST Office Visit [facility] [address] [place] [phone] Chantelle Villegas PA Stage IV pressure ulcer of sacral region (CMS/HCC) (Primary Dx) 07/27/2024 12:40 PM EST - 07/27/2024 11:59 PM EST Hospital Encounter [facility] CT Scan - [address] [place] [address] Pressure ulcer of sacral region, unstageable (CMS/HCC) Discharge Disposition: Home or Self Care 07/23/2024 12:30 PM EDT - 07/23/2024 11:59 PM EDT Hospital Encounter [facility] [address] [place] [phone] Lisseth Mancia, LEAN FACILITATOR Discharge Disposition: Home or Self Care from Last 3 Months Immunizations Name Administration Dates Next Due Influenza Quadravalent, 0.5ml (Fluad) 65yo and o lder 06/26/2022,06/02/2020 Influenza Quadravalent, 0.5m l (Fluzone High-dose) 65yo and older 07/17/2023,06/13/2021 Influenza Quadrivalent, 0.5m l, preservative free (Fluarix; FluLaval; Fluzone) ages 6mo and older (Afluria) 3yo and older 06/13/2021 Influenza trivalent, with pr eservative (Fluzone; Afluria) 6mo and older 06/28/2016 Influenza, Unspecified 06/10/2019,06/10/2019 Pneumococcal conjugate 13 va lent (Prevnar 13, PCV13) 2mo and older 06/03/2018 Pneumococcal polysaccharide 23 valent (Pneumovax 23) 2yo and older 06/10/2019 Surgical History Surgery Date Site/Laterality Comments BRAIN TUMOR EXCISION PROCEDURE:BRAIN TUMOR EXCISION BRAIN SURGERY 09/23/1957 PROCEDURE:BRAIN SURGERY;COMMENT:excision of cerebellar dermoid CATARACT EXTRACTION W/ INTRAOCULAR LENS IMPLANT 03/12/2017 Left PROCEDURE:CATARACT EXTRACTION W/ INTRAOCULAR LENS IMPLANT;COMMENT:Procedure: EXTRACTION CATARACT WITH IOL IMPLANT; Surgeon: Ravi Maki MD; [place] [facility]; Service: Ophthalmology; Laterality: Left; CATARACT EXTRACTION W/ INTRAOCULAR LENS IMPLANT 02/19/2017 Right PROCEDURE:CATARACT EXTRACTION W/ INTRAOCULAR LENS IMPLANT;COMMENT:Procedure: EXTRACTION CATARACT WITH IOL IMPLANT; Surgeon: Ravi Maki MD; [place] [facility]; Service: Ophthalmology; Laterality: Right; LUMBAR FUSION 07/26/2016 Bilateral PROCEDURE:LUMBAR FUSION;COMMENT:Procedure: L4-5 POSTERIOR LUMBAR SPINE FUSION; Surgeon: Martín Pang MD; Location: [facility]; Service: Spine; Laterality: Bilateral; LUMBAR LAMINECTOMY 07/26/2016 Right PROCEDURE:LUMBAR LAMINECTOMY;COMMENT:Procedure : RIGHT L3-4L4-5 DECOMPRESSION POSTERIOR LUMBAR; Surgeon: Martín Pang MD; Location: [facility]; Service: Spine; Laterality: Right; LUMBAR EPIDURAL INJECTION 03/19/2016 Right PROCEDURE:LUMBAR EPIDURAL INJECTION;COMMENT:Procedure: Right L4-5 transforaminal SUREKHA; Surgeon: Kandace Ochoa MD; [place] [facility]; Service: Rehab Medicine; Laterality: Right; LUMBAR EPIDURAL INJECTION 02/02/2016 N/A PROCEDURE:LUMBAR EPIDURAL INJECTION;COMMENT:Procedure: INJECTION ANESTHETIC AGENT LUMBAR; Surgeon: Kandace Ochoa MD; [place] [facility]; Service: Rehab Medicine; Laterality: N/A; UPPER GASTROINTESTINAL ENDOSCOPY PROCEDURE:UPPER GASTROINTESTINAL ENDOSCOPY KNEE ARTHROPLASTY 08/27/2022 Left PROCEDURE:KNEE ARTHROPLASTY;COMMENT:Dr. 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[facility]);COMMENT:RT brain surgery Osteoarthritis DX:Osteoarthriti s COVID-19 vaccine administered DX :COVID-19 vaccine administered;COMMENT:MODERNA 01/04/21, 02/02/21, 09/04/21, 01/03/22 Delayed wound healing Family History Medical History Relation Name Comments Heart disease Brother CABG Cancer Father LUNG Emphysema Father Heart failure Mother CHF Hyperlipidemia Mother Relation Name Status Comments Brother Alive Daughter x 2 Alive Father (Age 82) EMPHYSEMA Mother (Age 90) CHF Son Alive Social History Tobacco Use Types Packs/Day Years [...] file Not on file Not on file Obstetrics History Last Filed Vital Signs Vital Sign Reading [...] Mass Index 20.9 10/20/2024 8:05 AM EST Plan of Treatment Upcoming Encounters Date Type Department Care Team (Late st Contact Info) Description 11/03/2024 10:30 AM EST Clinical Support [facility] [address] [place] [phone] 11/24/2024 11:30 AM EST Office Visit [facility] [place] [address] [place] [address] Alon Tsai MD [address] [place], [place] [phone] Health Maintenance Due Date Last Done Comments DTaP,Tdap,and Td Vaccines (1 - Tdap) 1963 Zoster Vaccines (1 of 2) 1994 RSV Immunization Patients 60+ Years Old (1 - 1-dose 75+ series) 2019 Cholesterol Screening (Lipid Panel) 09/02/2022 Hepatitis C Screening 09/02/2022 Medicare Annual Wellness Visit 09/02/2022 Social Influencers of Health Screening 09/02/2022 COVID-19 Vaccine ( season) 2024 07/17/2023, 01/03/2022, 09/04/2021, Additional history exists Influenza Vaccine (#1) 2024 , 06/26/2022, 06/13/2021, Additional history exists Hypertension/CHF/CAD Annual BMP Blood Test 06/24/2025 06/24/2024, 06/24/2024, 06/23/2024, Additional history exists Depression Screening 10/20/2025 10/20/2024 Falls Risk Assessment 10/20/2025 10/20/2024 Osteoporosis Screening (Bone Density Screening) 03/27/2032 03/27/2022 Pneumococcal Vaccine: 65+ Years Completed 06/10/2019, 06/03/2018 HIB Vaccines Aged Out No longer eligi ble based on patient's age to complete this topic HPV Vaccines Aged Out No longer eligi ble based on patient's age to complete this topic Hepatitis A Vaccines Aged Out No long er eligible based on patient's age to complete this topic Hepatitis B Vaccines Aged Out No long er eligible based on patient's age to complete this topic IPV Vaccines Aged Out No longer eligi ble based on patient's age to complete this topic MMR Vaccines Aged Out No longer eligi ble based on patient's age to complete this topic Meningococcal ACWY Vaccine Aged Out N o longer eligible based on patient's age to complete this topic RSV Immunization Patients Under 20 months Aged Out No longer eligible based on patient's age to complete this topic Varicella Vaccines Aged Out No longer eligible based on patient's age to complete this topic Goals Goal Patient Goal Type Associated Problems Recent Progress Patient-Stated? Author Decrease Wound Volume by X% by date (in notes) Care Plan Impaired Tissue Pilar Resendiz RN Patient and Caregiver Understand Wound Care Education Care Plan Impaired Tissue No Pilar Irvin RN Wound volume breakdown reduced by X% by week 4 Care Plan Impaired Tissue No Pilar Irvin RN Wound volume breakdown reduced by X% by week 8 Care Plan Impaired Tissue No Pilar Irvin RN Wound volume breakdown reduced by X% by week 12 Care Plan Impaired Tissue No Pilar Irvin RN Quit using tobacco (cigarettes, smokeless, etc) Care Plan Education needed on impact of smoking on wound No Pilar Irvin RN Reduce tobacco use (cigarettes, smokeless, etc) Care Plan Education needed on impact of smoking on wound No Pilar Irvin RN Decrease Wound Volume by X% by date (in notes) Care Plan Education needed on impact of smoking on wound Pilar Resendiz RN Patient and Caregiver Understand Wound Care Education Care Plan Education needed related to ulceration/compr omised skin integrity. No Pilar Irvin RN Medical Devices Implanted Type Area Skein Yarn Drier Device Identifier Shelf Expiration Date Model / Serial / Lot Cement Bone Surg Simplex Radiopq Stry-Howm [id number] Implanted:Qty: 1 on 08/27/2022 by Rocco Wu MD Left: Knee [employer] [id number] 08/22/2023 6191-1-010 / / [id number] Cement Bone Surg Simplex Radiopq Stry-Howm [id number] Implanted:Qty: 1 on 08/27/2022 by Rocco Wu MD Left: Knee [employer] [id number] 08/22/2023 6191-1-010 / / [id number] Insert Tib Triathlon Baseplate Stry-Howm [id number] Implanted:Qty: 1 on 08/27/2022 by Rocco Wu MD Left: Knee [employer] [id number] 07/02/2027 5521-B-300 / / [id number] Tibial Bearing Insert Cs 10mm Stry-Howm [id number] Implanted:Qty: 1 on 08/27/2022 by Rocco Wu MD Left: Knee [employer] [id number] 05/03/2027 5531-G-310 -[id number] / / [id number] Knee Compon Fem Cmnt Sz3 L Stry-Howm [id number] Implanted:Qty: 1 on 08/27/2022 by Rocco Wu MD Left: Knee [employer] [id number] 06/14/2027 5510-F-301 / / [id number] Procedures Procedure Name Priority Date/Time Associated Diagnosis Comments DEBRIDEMENT Routine 10/20/2024 8:00 AM EST Stage IV pressure ulcer of sacral region (CMS/HCC) Osteomyelitis of sacrum (CMS/HCC) DEBRIDEMENT Routine 09/29/2024 11:15 AM EST Stage IV pressure ulcer of sacral region (CMS/HCC) DEBRIDEMENT Routine 08/14/2024 10:45 AM EST Stage IV pressure ulcer of sacral region (CMS/HCC) Osteomyelitis of sacrum (CMS/HCC) MR PELVIS WO AND W CONTRAST Routine 08/10/2024 12:20 PM EST Stage IV pressure ulcer of sacral region (CMS/HCC) DEBRIDEMENT Routine 07/31/2024 11:00 AM EST Stage IV pressure ulcer of sacral region (CMS/HCC) CULTURE WOUND Routine 07/29/2024 10:[address] ABDOMEN PELVIS W CONTRAST Routine 07/27/2024 1:33 PM EST Pressure ulcer of sacral region, unstageable (CMS/HCC) BONE DENSITY STUDY Routine 03/27/2022 1: 38 PM EDT Asymptomatic menopausal state Encounter for screening for osteoporosis from Last 3 Months or Most Recently Relevant to Health Maintenance Results * Debridement Pressure Injury Sacrum (09/29/2024 11:15 AM EST) Narrative Lisseth Mancia NP - 09/29/2024 11:15 AM EST Lisseht Mancia NP ? 09/29/2024 ??1:05 PM Debridement [...] ??09/29/2024 12:00 PM Debridement Details: ??Performed by: ??LEAN FACILITATOR ??Type: conservative sharp ?Pain control: ??Lidocaine 5% [...] treatment: ??Procedure was tolerated well Lisseth Mancia LEAN FACILITATOR IN CLINIC/BEDSIDE OR DERABLES * Debridement Pressure Injury Sacrum (08/14/2024 10:45 AM EST) Narrative Thom Cadena MD - 08/14/2024 10:45 AM EST KARI Espana ? 08/14/2024 12:52 PM Debridement Pressure Injury Sacrum Performed by: KARI Espana Authorized by: KARI Espana ?? Associated wounds: Wound Pressure Injury 07/31/24 Sacrum Consent: ??Consent obtained: ??Verbal ??Consent given by: ??Patient ??Risks discussed: Yes ?? Time out: Immediately prior to the procedure a time out was called ?? Time out performed at: ??08/14/2024 11:27 AM Debridement Details: ??Performed by: ??PA ??Type: surgical ?Level: subcutaneous tissue ?Pain control: ??Lidocaine 4% ??Pain control administration: topical anesthesia ?Severity of Tissue Pre Debridement: ??Fat layer exposed ??Severity of Tissue Post Debridement: ??Fat layer exposed ??Time taken: ??08/14/2024 10:00 AM ??Length (cm): ??4.5 ??Width (cm): ??5 ??Depth (cm): ??4.2 ??Area (cm^2): ??22.5 ??Time taken: ??08/14/2024 10:01 AM ??Length (cm): ??4.5 ??Width (cm): ??5 ??Depth (cm): ??4.2 ??Percent Debrided (%): ??100 ??Surface Area (cm^2): ??22.5 ??Area Debrided (cm^2): ??22.5 ??Volume (cm^3): ??94.5 ??Tissue and other material debrided: subcutaneous tissue ?Devitalized tissue debrided: biofilm, exudate, fibrin and slough ?Instrument: ??Curette ??Amount of bleeding: small ?Hemostasis obtained with: ??Silver nitrate ??Procedural pain: ??0 ??Post-procedural pain: ??0 ??Response to treatment: ??Procedure was tolerated well Chantelle PIERCE IN CLINIC/BEDSIDE ORDERABLES * MR Pelvis wo and w Contrast (08/10/2024 12:20 PM EST) Anatomical Region Laterality Modality Pelvis, Body Magnetic Resonan ce 08/12/2024 12:3 6 PM EST Impressions 08/12/2024 5:51 PM EST Sacral decubitus ulcer extending down to bone with suggestion of mild osteomyelitis of the S4 and S5 sacral cornua. ??Surrounding soft tissue inflammatory change without abscess. ??Mild enhancement within the medial aspect of the gluteus michael muscles may be reactive or could represent infectious myositis. Report reviewed and signed by : Dr. Miguelito Jin on 08/12/2024 5:51 PM. Workstation Name - [id number] -------- FINAL REPORT -------- Dictated By: Miguelito Jin Dictated Date: 08/12/2024 12:36 ET Assigned Physician: Miguelito Jin Reviewed and Electronically Signed By: Miguelito Jin Signed Date: 08/12/2024 17:51 ET Workstation ID: [id number] Transcribed By: Self Edit Transcribed Date: 08/12/2024 17:50 ET Narrative 08/12/2024 5:51 PM EST EXAM: MR PELVIS WO AND W CONTRAST INDICATION: Osteomyelitis suspected, pelvis, xray done nonhealing chronic wound to coccyx. COMPARISON(S): None. TECHNIQUE: Multiplanar, multiecho imaging of the pelvis was performed, including T1-weighted and fluid sensitive sequences. ??Postcontrast images were obtained following the intravenous administration of 10 mL Clariscan. FINDINGS: Marrow: Mild edema-like signal and patchy T1 signal hypointensity with periosteal enhancement and mild cortical erosion of the S4 and S5 cornua. ??No fracture or avascular necrosis. ??L4-L5 posterior decompression and interbody fusion. SI joints and pubic symphysis: Mild sacroiliac joint and superior pubic symphysis arthrosis. Hip joints: Moderate bilateral hip chondrosis with degenerative acetabular labral tearing. Tendons: Intact. ??Mild bilateral gluteal tendinosis. ??Trace right and small volume left greater trochanteric bursal fluid. Soft tissues: Sacral decubitus ulcer measuring approximately 5 x 1.8 x 6 cm (ML x AP x CC) extending down to the sacrum with surrounding subcutaneous edema and enhancement. ??No abscess. ??Mild enhancement within the medial aspect of the gluteus michael muscles. Sarcopenia. Procedure Note Miguelito Jin MD - 08/12/2024 EXAM: MR PELVIS WO AND W CONTRAST INDICATION: Osteomyelitis suspected, pelvis, xray done nonhealing chronic wound to coccyx. COMPARISON(S): None. TECHNIQUE: Multiplanar, multiecho imaging of the pelvis was performed,including T1-weighted and fluid sensitive sequences. Postcontrast imageswere obtained following the intravenous administration of 10 mL Clariscan. FINDINGS: Marrow: Mild edema-like signal and patchy T1 signal hypointensity withperiosteal enhancement and mild cortical erosion of the S4 and S5 cornua.No fracture or avascular necrosis. L4-L5 posterior decompression andinterbody fusion. SI joints and pubic symphysis: Mild sacroiliac joint and superior pubicsymphysis arthrosis. Hip joints: Moderate bilateral hip chondrosis with degenerative acetabularlabral tearing. Tendons: Intact. Mild bilateral gluteal tendinosis. Trace right andsmall volume left greater trochanteric bursal fluid. Soft tissues: Sacral decubitus ulcer measuring approximately 5 x 1.8 x 6cm (ML x AP x CC) extending down to the sacrum with surroundingsubcutaneous edema and enhancement. No abscess. Mild enhancement withinthe medial aspect of the gluteus michael muscles. Sarcopenia. IMPRESSION: Sacral decubitus ulcer extending down to bone with suggestion of mildosteomyelitis of the S4 and S5 sacral cornua. Surrounding soft tissueinflammatory change without abscess. Mild enhancement within the medialaspect of the gluteus michael muscles may be reactive or could representinfectious myositis. Report reviewed and signed by : Dr. Miguelito Jin on 08/12/2024 5:51 PM.Workstation Name - [id number] -------- FINAL REPORT -------- Dictated By: Miguelito Jin Dictated Date: 08/12/2024 12:36 ET Assigned Physician: Miguelito Jin Reviewed and Electronically Signed By: Miguelito Jin Signed Date: 08/12/2024 17:51 ET Workstation ID: [id number] Transcribed By: Self Edit Transcribed Date: 08/12/2024 17:50 ET Chantelle PIERCE IMG MRI PROCEDURE S * Debridement Pressure Injury Sacrum (07/31/2024 11:00 AM EST) Narrative Thom Cadean MD - 07/31/2024 11:00 AM EST KARI Espana ? 07/31/2024 ??2:09 PM Debridement Pressure Injury Sacrum Performed by: KARI Espana Authorized by: KARI Espana ?? Associated wounds: Wound Pressure Injury 07/31/24 Sacrum Consent: ??Consent obtained: ??Written ??Consent given by: ??Patient ??Risks discussed: Yes ?? Time out: Immediately prior to the procedure a time out was called ?? Time out performed at: ??07/31/2024 11:45 AM Debridement Details: ??Performed by: ??PA ??Type: selective ?Selective type: enzymatic ?Pain control: ??Lidocaine 4% ??Pain control administration: topical anesthesia ?Severity of Tissue Pre Debridement: ??Muscle involvement without necrosis ??Severity of Tissue Post Debridement: ??Muscle involvement without necrosis ??Time taken: ??07/31/2024 11:00 AM ??Length (cm): ??4.5 ??Width (cm): ??4 ??Depth (cm): ??3.5 ??Area (cm^2): ??18 ??Time taken: ??07/31/2024 11:01 AM ??Length (cm): ??4.5 ??Width (cm): ??4 ??Depth (cm): ??4.5 ??Percent Debrided (%): ??20 ??Surface Area (cm^2): ??18 ??Area Debrided (cm^2): ??3.6 ??Volume (cm^3): ??81 ??Devitalized tissue debrided: biofilm, exudate, fibrin and slough ?Instrument: ??Curette ??Amount of bleeding: small ?Hemostasis obtained with: ??Pressure ??Procedural pain: ??0 ??Post-procedural pain: ??0 ??Response to treatment: ??Procedure was tolerated well Chantelle PIERCE IN CLINIC/BEDSIDE ORDERABLES * Culture wound (07/29/2024 10:21 AM EST) Swab Historical Provider LAB MICROBIOLOGY - GENERAL ORDERABLES * CT Abdomen Pelvis w Contrast (07/27/2024 1:33 PM EST) Anatomical Region Laterality Modality Body Ultrasound 07/27/2024 3:54 PM EST Impressions 07/27/2024 4:03 PM EST Posterior sacral decubitus ulcer is seen. ??No drainable collection. ??No discrete osteolytic changes noted in the adjacent sacrum. ??However, MRI is more sensitive to evaluate for osteomyelitis and should be considered for further evaluation if clinically warranted. Redemonstrated endometrial thickening up to 1.7, similar compared to CT from May 2024 and abnormal in this postmenopausal patient. ??Recommend follow- up with pelvic ultrasound. ??Prominent serpiginous bilateral periuterine vessels suggestive of pelvic venous congestion syndrome. 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 ??No pancreatic ductal dilatation. ??Recommend follow-up with MRI/MRCP with and without contrast No small or large bowel obstruction. ??Small hiatal hernia. ??Short loop of nondilated small bowel extends into a small left fat-containing inguinal hernia. ??There is redemonstration of a moderate fat-containing right inguinal hernia again demonstrating inflammatory changes similar to the prior exam. Other findings as above. Report reviewed and signed by : Dr. Jesus Blake on 07/27/2024 4:03 PM. Workstation Name - [id number] -------- FINAL REPORT -------- Dictated By: Jesus Blake Dictated Date: 07/27/2024 15:54 ET Assigned Physician: Jesus Blake Reviewed and Electronically Signed By: Jesus Blake Signed Date: 07/27/2024 16:03 ET Workstation ID: [id number] Transcribed By: Self Edit Transcribed Date: 07/27/2024 15:54 ET Narrative 07/27/2024 4:03 PM EST CLINICAL INFORMATION: Pressure injury of sacral region COMPARISON: CT of the abdomen and pelvis performed 06/20/2024 TECHNIQUE: A CT abdomen and pelvis is performed with intravenous contrast. Sagittal and coronal reformats are provided. IV CONTRAST: 100 mL Isovue-370 is administered. ORAL CONTRAST: No DLP: 322 mGy-cm FINDINGS: LOWER CHEST: Lung bases are clear. LIVER: Normal. BILIARY: Normal. GALLBLADDER: Normal. SPLEEN: Normal. PANCREAS: Multiple pancreatic cystic lesions are seen along the pancreatic body, neck, and head largest measuring approximately 4 x 3.1 x 3.1 cm, similar compared to CT from 06/12/2024. ??No pancreatic ductal dilatation. ADRENAL GLANDS: Normal. KIDNEYS: Normal. URINARY BLADDER: ??Normal. REPRODUCTIVE ORGANS: ??Redemonstrated endometrial thickening up to 1.7 cm. ??Prominent serpiginous bilateral periuterine vessels. BOWEL: Small hiatal hernia. ??No bowel obstruction. Appendix is not clearly visualized, though no evidence of acute appendicitis. PERITONEUM: No ascites. No free air. VESSELS: Calcified atherosclerosis. ??Normal caliber abdominal aorta. ??- superior mesenteric artery: Patent. RETROPERITONEUM: No lymphadenopathy. ABDOMINAL WALL: Redemonstrated moderate right fat containing hernia again with fat stranding similar compared to CT from 06/12/2024. ??Small left fat-containing inguinal hernia also containing a very short segment of nonobstructed small bowel (series 3, image 66). Posterior sacral decubitus ulcer is seen (series 3, image 64 and series 603, image 54). ??No drainable collection. ??No discrete osteolytic changes noted in the adjacent sacrum. BONES: Spondylotic changes. ??L4-5 posterior fusion seen. ??Degenerative changes of the bilateral hip joints. Procedure Note Jesus Blake MD - 07/27/2024 CLINICAL INFORMATION: Pressure injury of sacral region COMPARISON: CT of the abdomen and pelvis performed 06/20/2024 TECHNIQUE: A CT abdomen and pelvis is performed with intravenous contrast.Sagittal and coronal reformats are provided. IV CONTRAST: 100 mL Isovue-370 is administered. ORAL CONTRAST: No DLP: 322 mGy-cm FINDINGS: LOWER CHEST: Lung bases are clear. LIVER: Normal. BILIARY: Normal. GALLBLADDER: Normal. SPLEEN: Normal. PANCREAS: Multiple pancreatic cystic lesions are seen along the pancreaticbody, neck, and head largest measuring approximately 4 x 3.1 x 3.1 cm,similar compared to CT from 06/12/2024. No pancreatic ductaldilatation. ADRENAL GLANDS: Normal. KIDNEYS: Normal. URINARY BLADDER: Normal. REPRODUCTIVE ORGANS: Redemonstrated endometrial thickening up to 1.7 cm.Prominent serpiginous bilateral periuterine vessels. BOWEL: Small hiatal hernia. No bowel obstruction. Appendix is not clearlyvisualized, though no evidence of acute appendicitis. PERITONEUM: No ascites. No free air. VESSELS: Calcified atherosclerosis. Normal caliber abdominal aorta. - superior mesenteric artery: Patent. RETROPERITONEUM: No lymphadenopathy. ABDOMINAL WALL: Redemonstrated moderate right fat containing hernia againwith fat stranding similar compared to CT from 06/12/2024. Small leftfat-containing inguinal hernia also containing a very short segment ofnonobstructed small bowel (series 3, image 66). Posterior sacral decubitus ulcer is seen (series 3, image 64 and [id number], image 54). No drainable collection. No discrete osteolytic changesnoted in the adjacent sacrum. BONES: Spondylotic changes. L4-5 posterior fusion seen. Degenerativechanges of the bilateral hip joints. IMPRESSION: Posterior sacral decubitus ulcer is seen. No drainable collection. Nodiscrete osteolytic changes noted in the adjacent sacrum. However, MRI ismore sensitive to evaluate for osteomyelitis and should be considered forfurther evaluation if clinically warranted. Redemonstrated endometrial thickening up to 1.7, similar compared to CTfrom May 2024 and abnormal in this postmenopausal patient.Recommend follow-up with pelvic ultrasound. Prominent serpiginousbilateral periuterine vessels suggestive of pelvic venous congestionsyndrome. Multiple pancreatic cystic lesions are seen along the pancreatic body,neck, and head largest measuring approximately 4 x 3.1 x 3.1 cm, similarcompared to CT from 06/12/2024. No pancreatic ductal dilatation.Recommend follow-up with MRI/MRCP with and without contrast No small or large bowel obstruction. Small hiatal hernia. Short loop ofnondilated small bowel extends into a small left fat-containing inguinalhernia. There is redemonstration of a moderate fat-containing rightinguinal hernia again demonstrating inflammatory changes similar to theprior exam. Other findings as above. Report reviewed and signed by : Dr. Jesus Blake on 07/27/2024 4:03 PM.Workstation Name - [id number] -------- FINAL REPORT -------- Dictated By: Jesus Blake Dictated Date: 07/27/2024 15:54 ET Assigned Physician: Jesus Blake Reviewed and Electronically Signed By: Jesus Blake Signed Date: 07/27/2024 16:03 ET Workstation ID: [id number] Transcribed By: Self Edit Transcribed Date: 07/27/2024 15:54 ET Lisseth Mancia NP IMG CT PROCEDURES * BONE DENSITY STUDY (03/27/2022 1:38 PM EDT) Anatomical Region Laterality Modality Bone Densitometr y 03/19/2022 12:0 3 PM EDT Narrative 03/28/2022 11:56 AM EDT Bone density study Indication and risk factors: Postmenopausal female. ??Screening for osteoporosis. Study acquired on a aDealio Advance densitometer. Imaging of the lumbar spine and hip was completed. FINDINGS: Averaged L1 through L3: Bone density: 1.16 g/cm2 Z score: 2.1 T score: -0.1 Degenerative sclerosis at L2 and L3 may erroneously elevate the averaged bone density of the lumbar spine. Left femoral neck: Bone density: 0.54 g/cm2 Z score: -1.6 T score: -3.7 CONCLUSION: 1. ??Osteoporosis of the left hip. SESSION: Not applicable World Health Organization Definitions of Osteoporosis: T score -0.9 and above: Normal BMD T score between -1.0 and -2.4: Low BMD (Osteopenia) T score -2.5 and below: Osteoporosis Report reviewed and signed by : Dr. Bárbara Weller on 03/28/2022 11:56 AM. Workstation Name - [id number] Procedure Note Bárbara Weller MD - 09/14/2022 Bone density study Indication and risk factors: Postmenopausal female. Screening forosteoporosis. Study acquired on a aDealio Advance densitometer. Imaging of thelumbar spine and hip was completed. FINDINGS: Averaged L1 through L3: Bone density: 1.16 g/cm2 Z score: 2.1 T score: -0.1 Degenerative sclerosis at L2 and L3 may erroneously elevate the averagedbone density of the lumbar spine. Left femoral neck: Bone density: 0.54 g/cm2 Z score: -1.6 T score: -3.7 CONCLUSION: 1. Osteoporosis of the left hip. SESSION: Not applicable World Health Organization Definitions of Osteoporosis: T score -0.9 and above: Normal BMD T score between -1.0 and -2.4: Low BMD (Osteopenia) T score -2.5 and below: Osteoporosis Report reviewed and signed by : Dr. Bárbara Weller on 03/28/2022 11:56 AM.Workstation Name - VALERIE Janki Samaniego MD IMG DXA PROCEDURES from Last 3 Months or Most Recently Relevant to Health Maintenance Additional Health Concerns Active Problems Noted Date Diagnosed Date Impaired Tissue 10/20/2024 Education needed on impact of smoking on wound 0 10/20/2024 Education needed related to ulceration/compromised skin integrity. 10/20/2024 Advance Directives Documents on File Type Date Recorded Patient Ground Support Agent Expl anation Health Care Decision (hx) 06/25/2024 AD LAUREANO DIRECTIVE
--- OUTSIDE RECORDS SUMMARY | 2024-10-21 13:08 | XMS_ITS | Encounter Summary ---
Author Organization [facility] Address [address] [place] [id number] Care Team Providers Care Marine Service Operator Name Role Phone Janki Samaniego MD Primary Care Provider + [phone] Juliet Cross RN Unavailable [phone] Janki Samaniego MD Unavailable [phone] Janki Samaniego MD Unavailable [phone] Alley Gay PA-C Unavailable [phone] Encounter Details Date Type Department Care Team (Late st Contact Info) Description 08/22/2022 Scanned Document [address] [place] [address] Provider, Generic Social History Tobacco Use Types [...] on filedocumented in this encounter Care Teams Marine Service Operator Relationship Specialty Start Date End Date Janki Samaniego MD [address] [place] [address] [address] [place] [address] PCP - General Internal Medicine 05/07/19 Janki Samaniego MD [address] [place] [address] PCP - [employer] Attributed 03/07/21 Janki Samaniego MD [address] [place] [address] PCP - NCT [employer] Attributed 09/23/22 03/22/24 Alley Gay PA-C [address] [address] PCP - NCT [employer] Attributed 03/23/24 08/22/24 Juliet Cross, JACKLYN [address] [facility] [address] [place], [place] [id number] [facility] Community Instructional Material Director 12/08/20 documented as of this encounter
--- OUTSIDE RECORDS SUMMARY | 2024-10-21 13:08 | XMS_ITS | Encounter Summary ---
Author Organization [facility] Address [address] [place] [id number] Care Team Providers Care Bench Loom Weaver Name Role Phone Janki Samaniego MD Primary Care Provider + [phone] Janki Samaniego MD Unavailable [phone] Janki Samaniego MD Unavailable [phone] Alley Gay PA-C Unavailable [phone] Encounter Details Date Type Department Care Team (Late st Contact Info) Description 12/05/2023 Scanned Document [facility] UROLOGY SCAN Urology, Scan Social History Tobacco Use Types Packs/Day Years [...] on filedocumented in this encounter Care Teams Bench Loom Weaver Relationship Specialty Start Date End Date Janki Samaniego MD [address] [place] [address] PCP - General Internal Medicine 05/07/19 Janki Samaniego MD [address] [place] [address] PCP - [employer] Attributed 03/07/21 Janki Samaniego MD [address] [place] [address] PCP - APNCT [employer] Attributed 09/23/22 03/22/24 Alley Gay PA-C [address] [address] PCP - APNCT [employer] Attributed 03/23/24 08/22/24 documented as of this encounter
--- OUTSIDE RECORDS SUMMARY | 2024-10-21 13:08 | XMS_ITS | Encounter Summary ---
Author Organization [facility] Address [address] [place] [address] Care Team Providers Care Agricultural Specialist Name Role Phone Janki Samaniego MD Primary Care Provider + [phone] Janki Samaniego MD Unavailable [phone] Janki Samaniego MD Unavailable [phone] Alley Gay PA-C Unavailable [phone] Encounter Details Date Type Department Care Team (Late st Contact Info) Description 01/09/2024 Scanned Document [facility] [address] [phone] Primary Care, Scan Social History Tobacco Use Types Packs/Day [...] on filedocumented in this encounter Care Teams Agricultural Specialist Relationship Specialty Start Date End Date Janki Samaniego MD [address] [place] [address] PCP - General Internal Medicine 05/07/19 Janki Samaniego MD [address] [address] PCP - [employer] Attributed 03/07/21 Janki Samaniego MD [address] [place] [address] PCP - APNCT [employer] Attributed 09/23/22 03/22/24 Alley Gay PA-C [address] [address] PCP - NCT [employer] Attributed 03/23/24 08/22/24 documented as of this encounter
--- OUTSIDE RECORDS SUMMARY | 2024-10-21 13:08 | XMS_ITS ---
Care Plan Created on: 2024 Sylvia Jimenez : 1945 Sex: Female Author Organization [address] [place] [address] Phone Care Team Providers Care Director Of Real Estate Name Role Phone Unavailable Primary Care Provider Unavailabl e Active Problems Problem Noted Date Diagnosed Date Osteomyelitis of sacrum 08/14/2024 Stage IV pressure ulcer of sacral region 024 Additional Health Concerns Active Problems Noted Date Diagnosed Date Impaired Tissue 10/20/2024 Education needed on impact of smoking on wound 0 10/20/2024 Education needed related to ulceration/compromised skin integrity. 10/20/2024 Goals Goal Patient Goal Type Associated Problems Recent Progress Patient-Stated? Author Decrease Wound Volume by X% by date (in notes) Care Plan Impaired Tissue Pilar Resendiz RN Patient and Caregiver Understand Wound Care Education Care Plan Impaired Tissue Pilar Resendiz RN Wound volume breakdown reduced by X% by week 4 Care Plan Impaired Tissue Pilar Resendiz RN [...] on impact of smoking on wound No Margaritozt, Pilar E, RN Patient and Caregiver Understand Wound Care Education Care Plan Education needed related to ulceration/compr omised skin integrity. Pilar Resendiz RN Interventions Intervention Entry Date Outcome Provide caregiver with wound care procedure information 10/20/2024 Educate caregiver on proper wound care procedures 10/20/2024 Give provider list of wound care supplies 10/20/2024 Refill wound care supplies 10/20/2024 Send Wound Care Supplies 10/20/2024 Give provider list of wound care supplies 10/20/2024 Refill wound care supplies 10/20/2024 Send Wound Care Supplies 10/20/2024 Provide caregiver with wound care procedure information 10/20/2024 Educate caregiver on proper wound care procedures 10/20/2024 Document patient eligibility for HBO 10/20/2024 Assess patient for HBO treatment 10/20/2024 Record wound depth 10/20/2024 Record total wound area 10/20/2024 Measure wound progress 10/20/2024 Create an action plan identifying patient strengths and supports 10/20/2024 Establish quit date with patient 10/20/2024 Discuss prior cessation attempts 10/20/2024 Discuss preferred method of cessation and plan 10/20/2024 Discuss barriers to smoking cessation 10/20/2024 Discuss smoking status with patient 10/20/2024 Create an action plan identifying patient strengths and supports 10/20/2024 Establish quit date with patient 10/20/2024 Discuss prior cessation attempts 10/20/2024 Discuss preferred method of cessation and plan 10/20/2024 Discuss barriers to smoking cessation 10/20/2024 Discuss smoking status with patient 10/20/2024 Provide caregiver with wound care procedure information 10/20/2024 Educate caregiver on proper wound care procedures 10/20/2024 Document patient eligibility for HBO 10/20/2024 Assess patient for HBO treatment 10/20/2024 Record wound depth 10/20/2024 Record total wound area 10/20/2024 Measure wound progress 10/20/2024 Provide caregiver with wound care procedure information 10/20/2024 Educate caregiver on proper wound care procedures 10/20/2024 Document patient eligibility for HBO 10/20/2024 Assess patient for HBO treatment 10/20/2024 Record wound depth 10/20/2024 Record total wound area 10/20/2024 Measure wound progress 10/20/2024 Provide caregiver with wound care procedure information 10/20/2024 Educate caregiver on proper wound care procedures 10/20/2024 Document patient eligibility for HBO 10/20/2024 Assess patient for HBO treatment 10/20/2024 Record wound depth 10/20/2024 Record total wound area 10/20/2024 Measure wound progress 10/20/2024 Provide caregiver with wound care procedure information 10/20/2024 Educate caregiver on proper wound care procedures 10/20/2024 Give provider list of wound care supplies 10/20/2024 Refill wound care supplies 10/20/2024 Send Wound Care Supplies 10/20/2024 Give provider list of wound care supplies 10/20/2024 Refill wound care supplies 10/20/2024 Send Wound Care Supplies 10/20/2024 Provide caregiver with wound care procedure information 10/20/2024 Educate caregiver on proper wound care procedures 10/20/2024 Document patient eligibility for HBO 10/20/2024 Assess patient for HBO treatment 10/20/2024 Record wound depth 10/20/2024 Record total wound area 10/20/2024 Measure wound progress 10/20/2024 Related Goals and Interventions Goal Associated Intervent ions Decrease Wound Volume by X% by date (in notes) Give provider list of wound care supplie s; Refill wound care supplies; Send Wound Care Supplies; Provide caregiver with wound care procedure information; Educate caregiver on proper wound care procedures; Document patient eligibility for HBO; Assess patient for HBO treatment; Record wound depth; Record total wound area; Measure wound progress Patient and Caregiver Unders tand Wound Care Education Provide caregiver with wound care proced ure information; Educate caregiver on proper wound care procedures; Give provider list of wound care supplies; Refill wound care supplies; Send Wound Care Supplies Wound volume breakdown reduc ed by X% by week 4 Provide caregiver with wound care proced ure information; Educate caregiver on proper wound care procedures; Document patient eligibility for HBO; Assess patient for HBO treatment; Record wound depth; Record total wound area; Measure wound progress Wound volume breakdown reduc ed by X% by week 8 Provide caregiver with wound care proced ure information; Educate caregiver on proper wound care procedures; Document patient eligibility for HBO; Assess patient for HBO treatment; Record wound depth; Record total wound area; Measure wound progress Wound volume breakdown reduc ed by X% by week 12 Provide caregiver with wound care proced ure information; Educate caregiver on proper wound care procedures; Document patient eligibility for HBO; Assess patient for HBO treatment; Record wound depth; Record total wound area; Measure wound progress Quit using tobacco (cigarett es, smokeless, etc) Create an action plan identifying patien t strengths and supports; Establish quit date with patient; Discuss prior cessation attempts; Discuss preferred method of cessation and plan; Discuss barriers to smoking cessation; Discuss smoking status with patient Reduce tobacco use (cigarett es, smokeless, etc) Create an action plan identifying patien t strengths and supports; Establish quit date with patient; Discuss prior cessation attempts; Discuss preferred method of cessation and plan; Discuss barriers to smoking cessation; Discuss smoking status with patient Decrease Wound Volume by X% by date (in notes) Give provider list of wound care supplie s; Refill wound care supplies; Send Wound Care Supplies; Provide caregiver with wound care procedure information; Educate caregiver on proper wound care procedures; Document patient eligibility for HBO; Assess patient for HBO treatment; Record wound depth; Record total wound area; Measure wound progress Patient and Caregiver Unders tand Wound Care Education Provide caregiver with wound care proced ure information; Educate caregiver on proper wound care procedures; Give provider list of wound care supplies; Refill wound care supplies; Send Wound Care Supplies
--- OUTSIDE RECORDS SUMMARY | 2024-10-21 13:08 | XMS_ITS | Clinical Summary ---
Author Organization [facility] Address [address] [place] [address] Care Team Providers Care Manager Sales Name Role Phone Unavailable Primary Care Provider Unavailabl e Allergies Active Allergy Reactions Criticality Noted Date Comments Penicillins Hives Low 01/31/2016 Medications Medication Sig Dispensed Refills Start Date End Date Status acetaminophen (TYLENOL) 325 MG tablet Take 2 tablets (650 mg total) by mouth every 6 (six) hours as needed. 1 tablet 0 06/24/2024 Active calcium carbonate (TUMS) 500 MG chewable tablet Chew 1 tablet (500 mg total) by mouth 3 (three) times a day as needed. 1 tablet 0 06/24/2024 Active collagenase (SANTYL) ointment Apply topically daily. 15 g 0 06/24/2024 Active Hydrocerin (EUCERIN) CREA cream Apply 1 application. topically daily. 1 g 0 06/24/2024 Active mupirocin (BACTROBAN) 2 % ointment Apply topically daily. 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 Wound Care ENF [address] [place] [address] Lisseth Mancia, Laura Mccartney RN Discharge Disposition: Home or Self Care 07/23/2024 Travel from Last 3 Months Immunizations Name Administration Dates Next Due Covid-19 (Moderna 12+) 100mc g/0.5mL dosage 01/03/2022,09/04/2021,02/02/2021,01/04 Covid-19 (Moderna 12+) Fall 2022 0.5mL Influenza Quad (Fluad) 0.5 m L >65Yrs (AIIV4) 06/26/2022,06/02/2020 Influenza Quad (High Dose Fl uzone) 0.7mL >65Yrs (HD-IIV4) 07/17/2023,06/13/2021 Influenza Trivalent (Fluzone /Afluria) 5.0mL Multi-dose Vial 06/28/2016 Influenza Vaccine, Unspecifi ed formulation 06/10/2019,06/28/2016 Pneumococcal Conjugate PCV13 06/03/2018 Pneumococcal Polysaccharide PPSV23 06/10/2019 Family History Medical History Relation Name Comments Heart disease Brother CABG Cancer Father LUNG Emphysema Father Heart failure Mother CHF Hyperlipidemia Mother Relation Name Status Comments Brother Alive Daughter x 2 Alive Father (Age 82) EMPHYSEMA Mother (Age 90) CHF Son Alive Social History Tobacco Use Types Packs/Day Years Used Date Smoking Tobacco: Never Smokeless Tobacco: Never Tobacco Cessation:Counseling Given: Not Answered Alcohol Use Standard Drinks/Week Comments Yes 7 (1 standard drink = 0.6 oz pur e alcohol) nightly at dinner 4 oz Sex and Gender Information Value Date Recorded Sex Assigned at Female 08/01/2022 3:08 PM EST Gender Identity Female 08/01/2022 3:08 PM EST Sexual Orientation Straight 06/20/2024 11 :30 AM EDT Job Start Date Occupation Industry Not on file Not on file Not on file Last Filed Vital Signs Vital Sign Reading Time Taken Comments Blood Pressure 124/82 06/24/2024 9:00 AM EDT Pulse 84 06/24/2024 9:00 AM EDT Temperature 37.1 ??C (98.8 ??F) 06/24/2024 9:00 AM ED T Respiratory Rate 20 06/24/2024 9:00 AM EDT Oxygen Saturation 95% 06/24/2024 9:00 AM EDT Inhaled Oxygen Concentration - - Weight 54.4 kg (120 lb) 06/22/2024 9:30 AM EDT Height 161.3 cm (5' 3.5 ) 06/22/2024 9:32 AM EDT Body Mass Index 20.92 06/22/2024 9:30 AM EDT Plan of Treatment Health Maintenance Due Date Last Done Comments Shingrix-Zoster Vaccine (1 of 2) 1994 Depression Screening 08/29/2018 08/29/2017, 08/29/2017, 08/29/2017 Fall Risk Assessment 08/29/2018 08/29/2017, 08/29/2017, 08/29/2017 Preventative Health Evaluation 08/29/2018 08/29/2017, 07/17/2017 RSV Adult > 60+ Yrs or (1 - 1-dose 75+ series) 2019 Osteoporosis Screening (DEXA Scan) 03/27/2024 03/27/2022, 09/22/2015 COVID-19 Vaccine ( season) 2024 07/17/2023, 01/03/2022, 09/04/2021, Additional history exists Influenza Vaccine (#1) 2024 , 06/26/2022, 06/13/2021, Additional history exists DTap / Tdap / Td (2 - Td or Tdap) 08/29/2027 08/29/2017 (Not eligible (specify reason in comment)) Hepatitis C Screening Completed 08/18/2018 Pneumococcal Vaccine Completed 06/10/2019, 06/03/20 18 Hepatitis B Vaccines Aged Out No long er eligible based on patient's age to complete this topic RSV Ped < 20 months Aged Out No longe r eligible based on patient's age to complete this topic Medical Devices Implanted Type Area Or Assistant Device Identifier Shelf Expiration Date Model / Serial / Lot Bone Cancellous Coarse 15cc - [id number] - [id number] Implanted:Qty: 1 on 07/26/2016 by Martín Pang MD at [facility] [place] [facility] Posterior: Spine Lumbar T[employer] 11/01/2020 1102-12 / [id number] / Screw 6.5 X 45.Mm - [id number] - [id number] Implanted:Qty: 4 on 07/26/2016 by Martín Pang MD at [facility] [place] [facility] Posterior: Spine Lumbar [employer] 1067.1645 / / 5.5 Polyaxial Tulip Threaded Creo Amp - [id number] - [id number] Implanted:Qty: 4 on 07/26/2016 by Martín Pang MD at [facility] [place] [facility] Posterior: Spine Lumbar [employer] 1119.0110 / / 5.5 Threaded Locking Cap Creo - [id number] - [id number] Implanted:Qty: 4 on 07/26/2016 by Martín Pang MD at [facility] [place] [facility] Posterior: Spine Lumbar [employer] 1119.0010 / / 5.5mm Curved Dawit Titanium Alloy 40mm Length - [id number] - [id number] Implanted:Qty: 2 on 07/26/2016 by Martín Pang MD at [facility] [place] [facility] Posterior: Spine Lumbar [employer] 1119.7040 / / Lens Toric Sn6at3 [facility] - [id number] - [id number] Implanted:Qty: 1 on 02/19/2017 by Ravi Maki MD at [facility] Location Right: Eye [employer] 01/20/2018 SN6AT3 / [id number] / Lens Toric Sn6at3 [facility] - [id number] - [id number] Implanted:Qty: 1 on 03/12/2017 by Ravi Maki MD at [facility] Location Left: Eye [employer] 01/20/2021 SN6AT3 / [id number] / Insert Tib Triathlon Baseplate Stry-How 2087-[id number] [id number] - [id number] Implanted:Qty: 1 on 08/27/2022 by Rocco Wu MD at [facility] [place] [facility] Left: Knee [employer] [id number] 07/02/2027 5521-B-30 0 / / [id number] Tibial Bearing Insert Cs 10mm [facility] [id number] - [id number] Implanted:Qty: 1 on 08/27/2022 by Rocco Wu MD at [facility] [place] [facility] Left: Knee [employer] [id number] 05/03/2027 5531-G-31 0-E / / [id number] Knee Compon Fem Cmnt Sz3 L [facility] 7260-[id number] 179 - [id number] Implanted:Qty: 1 on 08/27/2022 by Rocco Wu MD at [facility] [place] [facility] Left: Knee [employer] [id number] 06/14/2027 5510-F-30 1 / / [id number] Cement Bone Surg Simplex Radiopq Stry-How [id number] 092 - [id number] Implanted:Qty: 1 on 08/27/2022 by Rocco Wu MD at [facility] [place] [facility] Left: Knee [employer] [id number] 08/22/2023 6190-09-23 0 / / [id number] Cement Bone Surg Simplex Radiopq Stry-How [id number] 092 - [id number] Implanted:Qty: 1 on 08/27/2022 by Rocco Wu MD at [facility] [place] [facility] Left: Knee [employer] [id number] 08/22/2023 6190-09-23 0 / / [id number] Advance Directives For more information, please contact: [phone] Documents on File Type Date Recorded Patient Microsoft Application Developer Expl anation Advance Directive and Living Will 06/25/2024 8:57 AM [place] [facility] Proxy Advance Directive and Living Will 03/12/2017 1:08 PM Latest Code Status on File Code Status Date Activated Date Inactivated Comments Full Code 06/20/2024 10:26 AM 06/24/2024 7:04 PM This code status was ascertained in the following way: discussion with patient . Code Status History Code Status Date Activated Date Inactivated Comments Full Code 08/27/2022 10:21 AM 08/28/2022 7:11 PM Thi s code status was ascertained in the following way: discussion with patient . Full Code 08/27/2022 7:30 AM 08/27/2022 10:21 AM This code status was ascertained in the following way: discussion with patient . Full Code 07/26/2016 1:00 PM 07/26/2016 11:45 PM This code status was ascertained in the following way: discussion with patient.
--- OUTSIDE RECORDS SUMMARY | 2024-10-21 13:08 | XMS_ITS | Encounter Summary ---
Author Organization [facility] Address [address] [place] [address] Care Team Providers Care Processing Talc And Borate Supervisor Name Role Phone Janki Samaniego MD Primary Care Provider + [phone] Juliet Cross RN Unavailable [phone] Janki Samaniego MD Unavailable [phone] Janki Samaniego MD Unavailable [phone] Alley Gay PA-C Unavailable [phone] Encounter Details Date Type Department Care Team (Late st Contact Info) Description 12/27/2016 Scanned Document [facility] [address] [facility] [address] [place] [phone] Provider, Generic Social History Tobacco Use Types [...] on filedocumented in this encounter Care Teams Processing Talc And Borate Supervisor Relationship Specialty Start Date End Date Janki Samaniego MD [address] [place] [address] [address] [place] [address] PCP - General Internal Medicine 05/07/19 Janki Samaniego MD [address] [facility] [address] [place] [address] PCP - [employer] Attributed 03/07/21 Janki Samaniego MD [address] [place] [address] PCP - APNCT [employer] Attributed 09/23/22 03/22/24 Alley Gay PA-C [address] [address] PCP - APNCT [employer] Attributed 03/23/24 08/22/24 Juliet Cross RN [address] [facility] [address] [place] [address] [facility] Community Train Inspector 12/08/20 documented as of this encounter
--- OUTSIDE RECORDS SUMMARY | 2024-10-21 13:08 | XMS_ITS | Encounter Summary ---
Author Organization [facility] Address [address] [place] [address] Care Team Providers Care Editor Magazine Name Role Phone Janki Samaniego MD Primary Care Provider +- [phone] Janki Samaniego MD Unavailable [phone] Janki Samaniego MD Unavailable [phone] Alley Gay PA-C Unavailable [phone] Encounter Details Date Type Department Care Team (Late st Contact Info) Description 03/16/2024 Scanned Document [facility] 100 [facility] [address] [place] [phone] Janki Samaniego MD 100 [facility] [address] [place] [address] Social History Tobacco Use Types Packs/Day Years [...] on filedocumented in this encounter Care Teams Editor Magazine Relationship Specialty Start Date End Date Janki Samnaiego MD 100 [facility] [address] [place] [address] PCP - General Internal Medicine 05/07/19 Janki Samaniego MD [address] [place] [address] PCP - [place] Medicare Attributed 03/07/21 Janki Samaniego MD [address] [place] [address] PCP - APNCT [place] [employer] Attributed 09/23/22 03/22/24 Alley Gay PA-C [address] [address] PCP - APNCT [place] [employer] Attributed 03/23/24 08/22/24 documented as of this encounter
--- OUTSIDE RECORDS SUMMARY | 2024-10-21 13:08 | XMS_ITS | Clinical Summary ---
Author Organization [facility] Address [address] [place] [address] Care Team Providers Care Student Nurse Name Role Phone Janki Samaniego MD Primary Care Provider [phone] Janki Samaniego MD Unavailable [phone] Allergies Active Allergy Reactions Criticality Noted Date Comments Penicillins Hives Medium 01/31/2016 Medications Medication Sig Dispensed Refills Start Date End Date Status cholecalciferol (VITAMIN D3) 1000 units tablet Take by mouth. Active acetaminophen (TYLENOL) 500 MG tablet Take by mouth 4 times daily (every 6 hours) as needed. Active glucosamine chondroitin complex (OSTEO BI-FLEX) Tab tablet Take by mouth. Active Multiple Vitamins-Minerals (MULTIVITAMIN WITH MINERALS) tablet Take 1 tablet by mouth daily. Active Calcium Carbonate-Vit D-Min (CALCIUM 1200 PO) Take by mouth. Active Tdap (BOOSTRIX) 5-2.5-18.5 LF-MCG/0.5 injectionIndications:E ncounter for Medicare annual wellness exam Inject 0.5 mL into the shoulder, thigh, or buttocks once. 0.5 mL 04/22/2020 Active Ascorbic Acid (VITAMIN C PO) Take by mouth. Active PROBIOTIC PRODUCT PO Take by mouth. 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 Blakely Bilateral pseudophakia 07/17/2017 Dyslipidemia 01/02/2017 Essential hypertension 01/02/2017 Lumbar spinal stenosis 03/27/2016 Immunizations Name Administration Dates Next Due Influenza High-Dose Quadriva lent,(FLUZONE HIGH-DOSE), Perservative Free IM 0.7 mL 65 years and older 06/13/2021 Influenza Inactivated/Split Preservative Free IM 06/10/2019 Influenza, Quadrivalent 06/13/2021 Influenza, Quadrivalent (FLU AD) Adjuvanted Preservative Free IM 65 years and older 06/02/2020 Influenza, Unspecified 06/28/2016 Pneumococcal Conjugate 13-Valent 06/03/2018 Pneumococcal Polysaccharide 23-Valent 06/10/2019 Family History Medical History Relation Name Comments Cancer Father Lung cancer Father Heart disease Mother Rheumatic fever Mother Relation Name Status Comments Father Mother Social History Tobacco Use Types Packs/Day Years [...] on file Sexual Orientation Not on file Last Filed Vital Signs Vital Sign Reading Time Taken Comments Blood Pressure 120/72 11/25/2023 1:21 PM EST Pulse 80 11/25/2023 1:21 PM EST Temperature 36.6 ??C (97.9 ??F) 11/25/2023 1:21 PM ES T Respiratory Rate 16 11/25/2023 1:21 PM EST Oxygen Saturation 95% 11/25/2023 1:21 PM EST Inhaled Oxygen Concentration - - Weight 52.2 kg (115 lb) 11/25/2023 1:21 PM EST Height 161.3 cm (5' 3.5 ) 11/25/2023 1:21 PM EST Body Mass Index 20.05 11/25/2023 1:21 PM EST Plan of Treatment Health Maintenance Due Date Last Done Comments Physical 1962 DTaP/Tdap/Td Vaccines (1 - Tdap) 1963 Zoster (Shingles) Vaccine (1 of 2) 1994 RSV Vaccine 60 years and older and Patients (1 - 1-dose 75+ series) 2019 Annual Wellness Visit 04/23/2021 04/22/2020 DXA Bone Density (Females,Ages 65 and older) 03/27/2024 03/27/2022, 10/02/2017 Influenza Vaccine 04/23/2024 07/17/2023, , 06/13/2021, Additional history exists COVID-19 Vaccine ( season) 2024 07/17/2023, 01/03/2022, 09/04/2021, Additional history exists Hepatitis C Virus Screening Discontinued 08/18/2018 (Previously Completed) Pneumococcal Vaccines 50+ Completed 06/10/2019, 07/2018 Colonoscopy Discontinued 04/22/2020 (Declined) Mammogram Discontinued 12/27/2020, 04/0 12/2018, 12/25/2018 (Previously Completed) Hepatitis B Vaccines Aged Out No long er eligible based on patient's age to complete this topic Procedures Procedure Name Priority Date/Time Associated Diagnosis Comments IMAGING DEXA 03/27/2022 IMAGING BREAST/BX/MAMMO 12/27/2020 from Last 3 Months or Most Recently Relevant to Health Maintenance Results * IMAGING DEXA (03/27/2022) Anatomical Region Laterality Modality Other 03/27/2022 Narrative 03/27/2022 Ordered by an unspecified provider. Generic Provider IMG LEGACY PROCEDURE S * IMAGING BREAST/BX/MAMMO (12/27/2020) Anatomical Region Laterality Modality Other 12/27/2020 Narrative 12/27/2020 Ordered by an unspecified provider. Generic Provider IMG LEGACY PROCEDURE S from Last 3 Months or Most Recently Relevant to Health Maintenance Care Teams Student Nurse Relationship Specialty Start Date End Date Janki Samaniego MD [address] [place] [address] PCP - General Internal Medicine 05/07/19 Janki Samaniego MD [address] [place] [address] PCP - [place] [employer] Attributed 03/07/21
--- OUTSIDE RECORDS SUMMARY | 2024-10-21 13:08 | XMS_ITS | Encounter Summary ---
Author Organization [facility] Address [address] [place] [address] Care Team Providers Care Spareribs Trimmer Name Role Phone Janki Samaniego MD Primary Care Provider + [phone] Janki Samaniego MD Unavailable [phone] Janki Samaniego MD Unavailable [phone] Alley Gay PA-C Unavailable [phone] Encounter Details Date Type Department Care Team (Late st Contact Info) Description 12/13/2023 Scanned Document [facility] [address] [phone] Primary Care, Scan Social History Tobacco Use [...] on filedocumented in this encounter Care Teams Spareribs Trimmer Relationship Specialty Start Date End Date Janki Samaniego MD [address] [place] [address] PCP - General Internal Medicine 05/07/19 Janki Samaniego MD [address] [address] PCP - [place] Medicare Attributed 03/07/21 Janki Samaniego MD [address] [place] [address] PCP - APNCT [employer] Attributed 09/23/22 03/22/24 Alley Gay PA-C [address] [address] PCP - [place] [employer] Attributed 03/23/24 08/22/24 documented as of this encounter
--- OUTSIDE RECORDS SUMMARY | 2024-10-21 13:08 | XMS_ITS | Encounter Summary ---
Author Organization [facility] Address [address] [place] [address] Care Team Providers Care Cane Weigher Helper Name Role Phone Janki Samaniego MD Primary Care Provider + [phone] Janki Samaniego MD Unavailable [phone] Janki Samaniego MD Unavailable [phone] Alley Gay PA-C Unavailable [phone] Encounter Details Date Type Department Care Team (Late st Contact Info) Description 11/26/2023 Scanned Document [facility] EMERGENCY MED SCAN Emergency Medicine, Scan Social History Tobacco Use Types Packs/Day [...] on filedocumented in this encounter Care Teams Cane Weigher Helper Relationship Specialty Start Date End Date Janki Samaniego MD [address] [place] [address] PCP - General Internal Medicine 05/07/19 Janki Samaniego MD [address] [place] [address] PCP - [place] Medicare Attributed 03/07/21 Janki Samaniego MD [address] [place] [address] PCP - APNCT [employer] Attributed 09/23/22 03/22/24 Alley Gay PA-C [address] [address] PCP - APNCT [employer] Attributed 03/23/24 08/22/24 documented as of this encounter
--- OUTSIDE RECORDS SUMMARY | 2024-10-21 13:08 | XMS_ITS | Encounter Summary ---
Author Organization [facility] Address [address] [place] [address] Care Team Providers Care Vessel Builder Name Role Phone Janki Samaniego MD Primary Care Provider + [phone] Juliet Cross RN Unavailable [phone] Janki Samaniego MD Unavailable [phone] Janki Samaniego MD Unavailable [phone] Alley Gay PA-C Unavailable [phone] Encounter Details Date Type Department Care Team (Late st Contact Info) Description 11/20/2016 Scanned Document [facility] 100 [facility] [address] [place] [phone] Provider, Generic Social History Tobacco Use Types [...] on filedocumented in this encounter Care Teams Vessel Builder Relationship Specialty Start Date End Date Janki Samaniego MD [address] [place] [address] [address] [place] [address] PCP - General Internal Medicine 05/07/19 Janki Samaniego MD 100 [facility] [address] [place] [address] PCP - [place] Medicare Attributed 03/07/21 Janki Samaniego MD [address] [place] [address] PCP - APNCT [employer] Attributed 09/23/22 03/22/24 Alley Gay PA-C [address] [address] PCP - APNCT [employer] Attributed 03/23/24 08/22/24 Juliet Cross RN [address] [facility] [address] [place] [address] [facility] Community Cooler Worker 12/08/20 documented as of this encounter
--- OUTSIDE RECORDS SUMMARY | 2024-10-21 13:08 | XMS_ITS | Encounter Summary ---
Author Organization [facility] Address [address] [place] [address] Care Team Providers Care Liner Roll Changer Name Role Phone Janki Samaniego MD Primary Care Provider + [phone] Juliet Cross RN Unavailable [phone] Janik Samaniego MD Unavailable [phone] Janki Samaniego MD Unavailable [phone] Alley Gay PA-C Unavailable [phone] Encounter Details Date Type Department Care Team (Late st Contact Info) Description 10/03/2020 Scanned Document [facility] 100 [facility] [address] [place] [phone] Janki Samaniego MD [address] [place] [address] Social History Tobacco Use Types Packs/Day Years [...] on filedocumented in this encounter Care Teams Liner Roll Changer Relationship Specialty Start Date End Date Janki Samaniego MD [address] [place] [address] [address] [place] [address] PCP - General Internal Medicine 05/07/19 Janki Samaniego MD [address] [place] [address] PCP - [place] Medicare Attributed 03/07/21 Janki Samaniego MD [address] [place] [address] PCP - APNCT [place] Medicare Attributed 09/23/22 03/22/24 Alley Gay PA-C [address] [address] PCP - APNCT [place] Medicare Attributed 03/23/24 08/22/24 Juliet Cross, JACKLYN [address] [facility] 4 [place] [address] [facility] Community Materials Handling Coordinator 12/08/20 documented as of this encounter
--- OUTSIDE RECORDS SUMMARY | 2024-10-21 13:08 | XMS_ITS | Encounter Summary ---
Author Organization [facility] Address [address] [place] [address] Care Team Providers Care Biosecurity Officer Name Role Phone Janki Samaniego MD Primary Care Provider + [phone] Janki Samaniego MD Unavailable [phone] Janki Samaniego MD Unavailable [phone] Alley Gay PA-C Unavailable [phone] Encounter Details Date Type Department Care Team (Late st Contact Info) Description 12/13/2023 Scanned Document [facility] [address] [phone] Primary Care, Scan Social History Tobacco Use [...] on filedocumented in this encounter Care Teams Biosecurity Officer Relationship Specialty Start Date End Date Janki Samaniego MD [address] [place] [address] PCP - General Internal Medicine 05/07/19 Janki Samaniego MD [address] [address] PCP - [place] Medicare Attributed 03/07/21 Janki Samaniego MD [address] [place] [address] PCP - APNCT [employer] Attributed 09/23/22 03/22/24 Alley Gay PA-C [address] [address] PCP - [place] [employer] Medicare Attributed 03/23/24 08/22/24 documented as of this encounter
--- OUTSIDE RECORDS SUMMARY | 2024-10-21 13:08 | XMS_ITS | Encounter Summary ---
Author Organization [facility] Address [address] [place] [address] Care Team Providers Care Clinical Nursing Director Name Role Phone Janki Samaniego MD Primary Care Provider + [phone] Janki Samaniego MD Unavailable +[phone] Janki Samaniego MD Unavailable +[phone] Alley Gay PA-C Unavailable [phone] Encounter Details Date Type Department Care Team (Late st Contact Info) Description 07/22/2023 Telephone [facility] [address] [place] [address] Janki Samaniego MD [address] [place] [id number] Social History Tobacco Use Types Packs/Day Years [...] on filedocumented in this encounter Care Teams Clinical Nursing Director Relationship Specialty Start Date End Date Janki Samaniego MD [address] [place] [address] PCP - General Internal Medicine 05/07/19 Janki Samaniego MD [address] [place] [address] PCP - [place] Medicare Attributed 03/07/21 Janki Samaniego MD [address] [place] [address] PCP - APNCT [place] Medicare Attributed 09/23/22 03/22/24 Alley Gay PA-C [address] [address] PCP - APNCT [place] Medicare Attributed 03/23/24 08/22/24 documented as of this encounter
--- OUTSIDE RECORDS SUMMARY | 2024-10-21 13:08 | XMS_ITS | Encounter Summary ---
Author Organization [facility] Address [address] [place] [address] Care Team Providers Care Technical Support Associate Name Role Phone Janki Samaniego MD Primary Care Provider +- [phone] Janki Samaniego MD Unavailable +[phone] Janki Samaniego MD Unavailable +[phone] Alley Gay PA-C Unavailable +[phone] Encounter Details Date Type Department Care Team (Late st Contact Info) Description 03/09/2024 Scanned Document [facility] 100 [facility] [address] [place] [phone] Janki Samaniego MD 100 [facility] [address] [place] [address] Social History Tobacco Use Types Packs/Day Years [...] on filedocumented in this encounter Care Teams Technical Support Associate Relationship Specialty Start Date End Date Janki Samaniego MD 100 [facility] [address] [place] [address] PCP - General Internal Medicine 05/07/19 Janki Samaniego MD [address] [place] [address] PCP - [place] Medicare Attributed 03/07/21 Janki Samaniego MD [address] [place] [address] PCP - APNCT [place] Medicare Attributed 09/23/22 03/22/24 Alley Gay PA-C [address] [address] PCP - APNCT [place] Medicare Attributed 03/23/24 08/22/24 documented as of this encounter
--- OUTSIDE RECORDS SUMMARY | 2024-10-21 13:08 | XMS_ITS | Encounter Summary ---
Author Organization [facility] Address [address] [place] [address] Care Team Providers Care Surgical Garment Assembly Supervisor Name Role Phone Janki Samaniego MD Primary Care Provider + [phone] Juliet Cross RN Unavailable +[phone] Janki Samaniego MD Unavailable +[phone] Janki Samaniego MD Unavailable + [phone] Alley Gay PA-C Unavailable +[phone] Encounter Details Date Type Department Care Team (Late st Contact Info) Description 09/26/2016 Scanned Document [address] [place] [address] Provider, Generic Social History Tobacco Use Types Packs/Day Years Used Date Smoking Tobacco: Never Assessed Sex and Gender Information Value Date Recorded Sex Assigned at Not on file Gender Identity Not on file Sexual Orientation Not on file documented as of this encounter Plan of Treatment Not on file documented as of this encounter Procedures Procedure Name Priority Date/Time Associated Diagnosis Comments XRAY EXTERNAL RESULT 09/26/2016 documented in this encounter Results * XRAY EXTERNAL RESULT (09/26/2016) Anatomical Region Laterality Modality Computed Radiogr aphy Narrative 09/26/2016 Ordered by an unspecified provider. Generic Provider IMG DIAGNOSTIC IMAGI NG ORDERABLES documented in this encounter Visit Diagnoses Not on filedocumented in this encounter Care Teams Surgical Garment Assembly Supervisor Relationship Specialty Start Date End Date Janki Samaniego MD [address] [place] [address] PCP - General Internal Medicine 05/07/19 Janki Samaniego MD [address] [place] [address] PCP - [place] Medicare Attributed 03/07/21 Janki Samaniego MD [address] [place] [address] PCP - APNCT [place] Medicare Attributed 09/23/22 03/22/24 Alley Gay PA-C [address] [address] PCP - APNCT [place] Medicare Attributed 03/23/24 08/22/24 Juliet Cross, JACKLYN [address] [facility] 4 [place], [place] [id number] [facility] Community Guidance Secretary 12/08/20 documented as of this encounter
--- OUTSIDE RECORDS SUMMARY | 2024-10-21 13:08 | XMS_ITS | Encounter Summary ---
Author Organization [facility] Address [address] [place] [address] Care Team Providers Care Electrician Apprentice Name Role Phone Janki Samaniego MD Primary Care Provider + [phone] Juliet Cross RN Unavailable +[phone] Janki Samaniego MD Unavailable +[phone] Janki Samaniego MD Unavailable +[phone] Alley Gay PA-C Unavailable [phone] Encounter Details Date Type Department Care Team (Late st Contact Info) Description 03/27/2022 Scanned Document [address] [place] [address] Provider, Generic Social History Tobacco Use [...] Date/Time Associated Diagnosis Comments IMAGING DEXA 03/27/2022 documented in this encounter Results * IMAGING DEXA (03/27/2022) Anatomical Region Laterality Modality Other 03/27/2022 Narrative 03/27/2022 Ordered by an unspecified provider. Generic Provider IMG LEGACY PROCEDURE S documented in this encounter Visit Diagnoses Not on filedocumented in this encounter Care Teams Electrician Apprentice Relationship Specialty Start Date End Date Janki Samaniego MD [address] [place] [address] PCP - General Internal Medicine 05/07/19 Janki Samaniego MD [address] [place] [address] PCP - [place] Medicare Attributed 03/07/21 Janki Samaniego MD [address] [place] [address] PCP - APNCT [place] Medicare Attributed 09/23/22 03/22/24 Alley Gay PA-C [address] [address] PCP - APNCT [place] Medicare Attributed 03/23/24 08/22/24 Juliet Cross, RN [address] [facility] 4 [place] [address] [facility] Community Senior Principal Architect 12/08/20 documented as of this encounter
--- OUTSIDE RECORDS SUMMARY | 2024-10-21 13:09 | XMS_ITS | Encounter Summary ---
Author Organization [facility] Address [address] [place] [address] Care Team Providers Care Varitypist Name Role Phone Janki Samaniego MD Primary Care Provider Juliet Cross RN Unavailable +[phone] Janki Samaniego MD Unavailable +[phone] Janki Samaniego MD Unavailable [phone] Alley Gay PA-C Unavailable [phone] Encounter Details Date Type Department Care Team (Late st Contact Info) Description 09/29/2018 Scanned Document [address] [place] [address] Provider, Generic Social History Tobacco Use Types Packs/Day Years Used Date Smoking Tobacco: Never Assessed Sex and Gender Information Value Date Recorded Sex Assigned at Not on file Gender Identity Not on file Sexual Orientation Not on file documented as of this encounter Plan of Treatment Not on file documented as of this encounter Procedures Procedure Name Priority Date/Time Associated Diagnosis Comments BLOOD PRESSURE MONITOR HX 09/29/2018 documented in this encounter Results * BLOOD PRESSURE MONITOR HX (09/29/2018) Narrative Brooke Lima - 09/29/2018 Ordered by an unspecified provider. Generic Provider HX AMB PROCEDURES documented in this encounter Visit Diagnoses Not on filedocumented in this encounter Care Teams Varitypist Relationship Specialty Start Date End Date Janki Samaniego MD 100 [facility] [address] [place] [address] PCP - General Internal Medicine 05/07/19 Janki Samaniego MD [address] [place] [address] PCP - [place] Medicare Attributed 03/07/21 Janki Samaniego MD [address] [place] [address] PCP - APNCT [place] Medicare Attributed 09/23/22 03/22/24 Alley Gay PA-C [address] [address] PCP - APNCT [place] Medicare Attributed 03/23/24 08/22/24 Juliet Cross, RN [address] [facility] 4 [place] [address] [facility] Community Barrel Ribs Solderer 12/08/20 documented as of this encounter
--- OUTSIDE RECORDS SUMMARY | 2024-10-21 13:09 | XMS_ITS | Encounter Summary ---
Author Organization [facility] Address [address] [place] [address] Care Team Providers Care Addiction Psychiatrist Name Role Phone Janki Samaniego MD Primary Care Provider + [phone] Juliet Cross RN Unavailable +[phone] Janki Samaniego MD Unavailable +[phone] Janki Samaniego MD Unavailable [phone] Alley Gay PA-C Unavailable [phone] Encounter Details Date Type Department Care Team (Late st Contact Info) Description 08/29/2017 Scanned Document [facility] 100 [facility] [address] [place] [phone] Provider, Generic Social History Tobacco Use Types [...] on filedocumented in this encounter Care Teams Addiction Psychiatrist Relationship Specialty Start Date End Date Janki Samaniego MD [address] [place] [address] [address] [place] [address] PCP - General Internal Medicine 05/07/19 Janki Samaniego MD 100 [facility] [address] [place] [address] PCP - [place] Medicare Attributed 03/07/21 Janki Samaniego MD [address] [place] [address] PCP - APNCT [place] Medicare Attributed 09/23/22 03/22/24 Alley Gay PA-C [address] [address] PCP - APNCT [place] Medicare Attributed 03/23/24 08/22/24 Juliet Cross RN [address] [facility] 4 [place] [address] [facility] Community Ham Trimmer 12/08/20 documented as of this encounter
--- OUTSIDE RECORDS SUMMARY | 2024-10-21 13:09 | XMS_ITS | Encounter Summary ---
Author Organization [facility] Address [address] [place] [address] Care Team Providers Care Wool Brusher Name Role Phone Janki Samaniego MD Primary Care Provider [phone] Juliet Cross RN Unavailable [phone] Janki Samaniego MD Unavailable +[phone] Janki Samaniego MD Unavailable +[phone] Alley Gay PA-C Unavailable [phone] Encounter Details Date Type Department Care Team (Late st Contact Info) Description 07/23/2017 Scanned Document [address] [place] [address] Provider, Generic Social History Tobacco [...] Procedure Name Priority Date/Time Associated Diagnosis Comments LAB RESULT 07/23/2017 documented in this encounter Results * LAB RESULT (07/23/2017) 07/23/2017 Narrative Brooke Lima - 07/23/2017 Ordered by an unspecified provider. Generic Provider HX AMB PROCEDURES documented in this encounter Visit Diagnoses Not on filedocumented in this encounter Care Teams Wool Brusher Relationship Specialty Start Date End Date Janki Samaniego MD [address] [place] [address] PCP - General Internal Medicine 05/07/19 Janki Samaniego MD [address] [place] [address] PCP - [place] Medicare Attributed 03/07/21 Janki Samaniego MD [address] [place] [address] PCP - APNCT [place] Medicare Attributed 09/23/22 03/22/24 Alley Gay PA-C [address] [address] PCP - APNCT [place] Medicare Attributed 03/23/24 08/22/24 Juliet Cross, RN [address] [facility] 4 [place] [address] [facility] Community Protection Mgr 12/08/20 documented as of this encounter
--- OUTSIDE RECORDS SUMMARY | 2024-10-21 13:09 | XMS_ITS | Encounter Summary ---
Author Organization [facility] Address [address] [place] [address] Care Team Providers Care Biometrics Technician Name Role Phone Janki Samaniego MD Primary Care Provider + [phone] Juliet Cross RN Unavailable +[phone] Janki Samaniego MD Unavailable +[phone] Janki Samaniego MD Unavailable [phone] Alley Gay PA-C Unavailable [phone] Encounter Details Date Type Department Care Team (Late st Contact Info) Description 02/11/[address] [facility] 100 [facility] [address] [place] [phone] Provider, Generic Social History Tobacco Use Types [...] on filedocumented in this encounter Care Teams Biometrics Technician Relationship Specialty Start Date End Date Janki Samaniego MD [address] [place] [address] [address] [place] [address] PCP - General Internal Medicine 05/07/19 Janki Samaniego MD 100 [facility] [address] [place] [address] PCP - [place] Medicare Attributed 03/07/21 Janki Samaniego MD [address] [place] [address] PCP - APNCT [place] Medicare Attributed 09/23/22 03/22/24 Alley Gay PA-C [address] [address] PCP - APNCT [place] Medicare Attributed 03/23/24 08/22/24 Juliet Cross RN [address] [facility] 4 [place] [address] [facility] Community Drawing In Machine Tender 12/08/20 documented as of this encounter
--- OUTSIDE RECORDS SUMMARY | 2024-10-21 13:09 | XMS_ITS | Encounter Summary ---
Author Organization [facility] Address [address] [place] [address] Care Team Providers Care Wood Bucker Name Role Phone Janki Samaniego MD Primary Care Provider + [phone] Juliet Cross RN Unavailable +[phone] Janki Samaniego MD Unavailable +[phone] Janki Samaniego MD Unavailable [phone] Alley Gay PA-C Unavailable [phone] Encounter Details Date Type Department Care Team (Late st Contact Info) Description 08/04/[address] [facility] 100 [facility] [address] [place] [address] Provider, Generic Social History Tobacco Use Types [...] on filedocumented in this encounter Care Teams Wood Bucker Relationship Specialty Start Date End Date Janki Samaniego MD [address] [place] [address] [address] [place] [address] PCP - General Internal Medicine 05/07/19 Janki Samaniego MD [address] [place], [place] [address] [address] [place] [address] PCP - [place] Medicare Attributed 03/07/21 Janki Samaniego MD [address] [place] [address] PCP - APNCT [place] Medicare Attributed 09/23/22 03/22/24 Alley Gay PA-C [address] [address] PCP - APNCT [place] Medicare Attributed 03/23/24 08/22/24 Juliet Cross RN [address] [facility] 4 [place] [address] [facility] Community Bobbin Hauler 12/08/20 documented as of this encounter
--- OUTSIDE RECORDS SUMMARY | 2024-10-21 13:09 | XMS_ITS | Encounter Summary ---
Author Organization [facility] Address [address] [place] [address] Care Team Providers Care Temporary Administrative Assistant Name Role Phone Janki Samaniego MD Primary Care Provider +[phone] Juliet Cross RN Unavailable +[phone] Janki Samaniego MD Unavailable +[phone] Janki Samaniego MD Unavailable +[phone] Alley Gay PA-C Unavailable [phone] Encounter Details Date Type Department Care Team (Late st Contact Info) Description 08/18/2018 Scanned Document [address] [place] [address] Provider, Generic Social History Tobacco [...] Priority Date/Time Associated Diagnosis Comments LAB RESULT 08/18/2018 documented in this encounter Results * LAB RESULT (08/18/2018) 08/18/2018 Narrative Brooke Lima - 08/18/2018 Ordered by an unspecified provider. Generic Provider HX AMB PROCEDURES documented in this encounter Visit Diagnoses Not on filedocumented in this encounter Care Teams Temporary Administrative Assistant Relationship Specialty Start Date End Date Janki Samaniego MD [address] [place] [address] PCP - General Internal Medicine 05/07/19 Janki Samaniego MD [address] [place] [address] PCP - [employer] Medicare Attributed 03/07/21 Janki Samaniego MD [address] [place] [address] PCP - APNCT [place] Medicare Attributed 09/23/22 03/22/24 Alley Gay PA-C [address] [address] PCP - APNCT [place] Medicare Attributed 03/23/24 08/22/24 Juliet Cross, RN [address] [facility] 4 [place] [address] [facility] Community Instructional Writer 12/08/20 documented as of this encounter
--- OUTSIDE RECORDS SUMMARY | 2024-10-21 13:09 | XMS_ITS | Encounter Summary ---
Author Organization [facility] Address [address] [place] [address] Care Team Providers Care Electric Welder Helper Name Role Phone Janki Samaniego MD Primary Care Provider + [phone] Juliet Cross RN Unavailable +[phone] Janki Samaniego MD Unavailable +[phone] Janki Samaniego MD Unavailable + [phone] Alley Gay PA-C Unavailable +[phone] Encounter Details Date Type Department Care Team (Late st Contact Info) Description 10/02/2017 Scanned Document [address] [place] [address] Provider, Generic Social History Tobacco Use [...] Priority Date/Time Associated Diagnosis Comments IMAGING DEXA 10/02/2017 documented in this encounter Results * IMAGING DEXA (10/02/2017) Anatomical Region Laterality Modality Other Narrative 10/02/2017 Ordered by an unspecified provider. Generic Provider IMG LEGACY PROCEDURE S documented in this encounter Visit Diagnoses Not on filedocumented in this encounter Care Teams Electric Welder Helper Relationship Specialty Start Date End Date Janki Samaniego MD [address] [place] [address] PCP - General Internal Medicine 05/07/19 Janki Samaniego MD [address] [place] [address] PCP - [place] Medicare Attributed 03/07/21 Janki Samaniego MD [address] [place] [address] PCP - APNCT [place] Medicare Attributed 09/23/22 03/22/24 Alley Gay PA-C [address] [address] PCP - APNCT [place] Medicare Attributed 03/23/24 08/22/24 Juliet Cross, RN [address] [facility] 4 [place] [address] [facility] Community Bill Checker 12/08/20 documented as of this encounter
--- OUTSIDE RECORDS SUMMARY | 2024-10-21 13:09 | XMS_ITS | Encounter Summary ---
Author Organization [facility] Address [address] [place] [address] Care Team Providers Care Mental Health Aide Name Role Phone Janki Samaniego MD Primary Care Provider + [phone] Juliet Cross RN Unavailable +[phone] Janki Samaniego MD Unavailable +[phone] Janki Samaniego MD Unavailable +[phone] Alley Gay PA-C Unavailable +[phone] Encounter Details Date Type Department Care Team (Late st Contact Info) Description 08/12/2018 Scanned Document [facility] 100 [facility] [address] [place] [address] Cardiology, Scan Social History Tobacco Use Types Packs/Day Years Used Date Smoking Tobacco: Never Assessed Sex and Gender Information Value Date Recorded Sex Assigned at Not on file Gender Identity Not on file Sexual Orientation Not on file documented as of this encounter Plan of Treatment Not on file documented as of this encounter Procedures Procedure Name Priority Date/Time Associated Diagnosis Comments ECG 12-LEAD 08/18/2018 documented in this encounter Results * ECG 12-LEAD (08/18/2018) 08/18/2018 Scan Cardiology ECG ORDERABLES documented in this encounter Visit Diagnoses Not on filedocumented in this encounter Care Teams Mental Health Aide Relationship Specialty Start Date End Date Janki Samaniego MD [address] [place] [address] PCP - General Internal Medicine 05/07/19 Janki Samaniego MD [address] [place] [address] PCP - [place] Medicare Attributed 03/07/21 Janki Samaniego MD [address] [place] [address] PCP - APNCT [place] Medicare Attributed 09/23/22 03/22/24 Alley Gay PA-C [address] [address] PCP - APNCT [place] Medicare Attributed 03/23/24 08/22/24 Juliet Cross, JACKLYN [address] [facility] 4 [place] [address] [facility] Community Bag Liner 12/08/20 documented as of this encounter
--- OUTSIDE RECORDS SUMMARY | 2024-10-21 13:09 | XMS_ITS | Encounter Summary ---
Author Organization [facility] Address [address] [place] [address] Care Team Providers Care Rn New Grad Name Role Phone Janki Samaniego MD Primary Care Provider + [phone] Juliet Cross RN Unavailable +[phone] Janki Samaniego MD Unavailable +[phone] Janki Samaniego MD Unavailable + [phone] Alley Gay PA-C Unavailable +[phone] Encounter Details Date Type Department Care Team (Late st Contact Info) Description 02/27/2018 Scanned Document [facility] 100 [facility] [address] [place] [address] Provider, Generic Social History Tobacco Use Types [...] on filedocumented in this encounter Care Teams Rn New Grad Relationship Specialty Start Date End Date Janki Samaniego MD [address] [place] [address] [address] [place] [address] PCP - General Internal Medicine 05/07/19 Janki Samaniego MD 100 [facility] [address] [place] [address] PCP - [place] Medicare Attributed 03/07/21 Janki Samaniego MD [address] [place] [address] PCP - APNCT [place] Medicare Attributed 09/23/22 03/22/24 Alley Gay PA-C [address] [address] PCP - APNCT [place] Medicare Attributed 03/23/24 08/22/24 Juliet Cross RN [address] [facility] 4 [place] [address] [facility] Community Chief Security Officer 12/08/20 documented as of this encounter
[2024-10-21 15:10] LABS: Alanine Aminotransferase 9 U/L (0-31); Albumin Level 3.9 g/dL (3.5-5.0); Alkaline Phosphatase 72 U/L (39-117); Anion Gap 12 (12-20); Aspartate Amino Transferase 21 U/L (5-31); Bilirubin Total 1.1 mg/dL (0.0-1.0); Blood Urea Nitrogen 14 mg/dL (9-16); Calcium 9.2 mg/dL (8.4-10.2); Carbon Dioxide 27 mmol/L (22-29); Chloride 104 mmol/L (96-108); Estimated Glomerular Filt Rate > 60; Glucose Random 97 mg/dL (60-115); Magnesium 1.9 mg/dL (1.6-2.6); Potassium 3.7 mmol/L (3.3-5.1); Sodium 139 mmol/L (135-145)
[2024-10-21 15:44] VITALS: BP 139/79; PULSE 93; RESP 16; TEMP 37.2; O2SAT 98
[2024-10-21] MEDS: 0.9 % Sodium Chloride 1,000 ML 999 ML IV (15:46)
[2024-10-21 16:55] LABS: Appearance Urine Cloudy; Color Urine Yellow; Glucose Urine UA Negative (Negative); Leukocyte Esterase Urine Moderate (2+) (Negative); Nitrite Urine Positive (Negative); Specific Gravity - Urine 1.015 (1.005-1.025); UMIC TRIGGER UACC YES; Urine Blood Small (1+) (Negative); Urine Ketones Negative (Negative); Urine Protein 30 (1+) mg/dL (Neg-Trace)
[2024-10-21 17:05] LABS: Bacteria Urine 4+ (None Seen); Hyaline Casts Urine 0-2 /LPF (0-2); Squamous Epithelial Cell Urine 0-2 /HPF (0-2); UACC Culture Trigger YES; WBC Urine >50 /HPF (0-5)
[2024-10-21] MEDS: cefuroxime axetiL 500 MG TABLET PO (17:37)
[2024-10-21] MEDS: Acetaminophen 325 MG TABLET 650 MG PO (18:40)
[2024-10-21 18:42] VITALS: BP 139/88; PULSE 89; RESP 18; TEMP 37.4; O2SAT 95
[2024-10-21 18:54] VITALS: BP 139/88; PULSE 89; RESP 16; TEMP 37.4; O2SAT 95
--- NOTE | 2024-10-21 20:09 | PC.NURSE ---
pt daughter at bedside for pt transfer home, pt assisted into wheelchair at this time and helped into car.
== END 2024-10-21 20:10 | disposition home or self-care (01) ==
PROVIDERS: Physician Assistant Medical; Emergency Provider Emergency Medicine
DX: S09.90XA Unspecified injury of head, initial encounter (principal); R51.9 Headache, unspecified; H57.11 Ocular pain, right eye; R11.0 Nausea; M54.2 Cervicalgia; W01.0XXA Fall on same level from slipping, tripping and stumbling without subsequent striking against object, initial encounter; Y93.9 Activity, unspecified; Y92.89 Other specified places as the place of occurrence of the external cause; Y99.8 Other external cause status; Z79.899 Other long term (current) drug therapy; Z03.818 Encounter for observation for suspected exposure to other biological agents ruled out
CPT/HCPCS: 0241U; 70450; 70486; 72125; 80053; 81001; 83735; 85025; 87086; 87088; 87186; 96360; 96361; 99285

== ENCOUNTER → 2024-10-21 10:50 | Outpatient (BNV) | payer MEDICARE, SELFPAY | PROVIDERS: Emergency Provider Student in an Organized Health Care Education/Training Program; Visit Provider Radiology Diagnostic Radiology | DX: M50.30 Other cervical disc degeneration, unspecified cervical region (principal); M47.812 Spondylosis without myelopathy or radiculopathy, cervical region; R52 Pain, unspecified; W19.XXXA Unspecified fall, initial encounter; G93.89 Other specified disorders of brain | CPT/HCPCS: 70450; 70486; 72125 ==

== ENCOUNTER 2025-07-08 08:51 | Outpatient (AMB) | payer MEDICARE, SELFPAY ==
--- NOTE | 2025-07-08 08:55 | A.OFFVIS_ITS ---
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 She is here today for an evaluation of headaches that began after a recent fall. Over the course of the last year, she has had 3 falls. Her 1st fall was in May of 2024 and more recent falls earlier this year. She tells me that each of these falls which occurred within the last calendar year or so were in the setting of urinary tract infection. For the past 3 years she has been using a walker which she began using after a knee surgery. She has been doing well without any falls up until this year. Her most recent fall was in September of 2024 when she experienced a head strike on the floor after which she began having left-sided headaches. Her head pain is to the left occipital area and feels tender to touch. She feels that the pain is very localized and superficial described as a dull pain but fluctuating in intensity. Her pain can reach a 6/10 but has caused her some hesitancy to go out and be social at times especially when headaches are more intense. Aside from this, headaches are generally not impacting her ability to perform her ADLs and life. Her son however does have some concerns that she has tried away from going to events because of her headaches in the recent past. Prior to these headaches, she had no significant history of headaches. Most recent CT scan does show ventriculomegaly. Unfortunately, we do not have prior scans for comparison though she does note she had some scans performed at [facility]. She is unsure if she had enlarged ventricles in the past. She does have some mild urinary retention at times but no overt urinary incontinence or change in urinary patterns over the course of the last year. She and her son report some mild memory changes but no significant or rapid changes in her cognition/memory recently. In terms of gait, she feels that her gait is relatively back to its baseline since after her knee surgery 3 years ago. Other related background information: Sleep:Reports that she sleeps well and generally feels rested Hydration: About 24 oz per day Caffeine intake:None Alcohol intake: 1x per week Substance use: None Tobacco use:None Last eye exam: Within the last year History of head injury:Yes, see HPI Past medication trials: Tylenol some improvement Prior workup: CT brain 09/2024 IMPRESSION:No acute intracranial process seen. Significant distended lateral ventricles, disproportionate to the third and fourth ventricle. Evaluate for obstructive hydrocephalus at the level of aqueduct or foramina of [place]. 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 Mild loss of C6 vertebral height. Severe de PFSH Medical History (Updated 07/09/25 @ 09:26 by Aubree Dillard CNP) Cervicogenic headache Incarcerated right inguinal hernia Sacral decubitus ulcer, stage III Spinal stenosis Kidney stones Cystic mass of pancreas Surgical History H/O lithotripsy H/O brain surgery Total knee replacement status Previous back surgery Social History Household Members: Other Housing: Assisted Living Facility Housing Other:: Independent living/ [facility] Are you a primary physician locums urgent care to a significant other at home: No Do you presently have visiting nurse or other home services: No Patient Tobacco Use Status: Never used Tobacco service: No Review of Systems Const All systems reviewed & are unremarkable except as noted in HPI and below Physical Exam Vital Signs: Last Vital Signs Pulse 92 07/08/25 09:05 Resp 16 07/08/25 09:05 BP 172/87 H 07/08/25 09:05 Pulse Ox 95 07/08/25 09:05 Oxygen Delivery Method Room Air 07/08/25 09:05 BMI result Body Mass Index 21.6 Const General: cooperative and comfortable Orientation/consciousness: oriented to person, oriented to place and oriented to time Neuro General: oriented to person, oriented to place and oriented to time Cranial nerves: Yes CN's II-XII intact bilaterally Cognition (Neuro): normal cognition Gait exam (Neuro): Ataxic gait present, Assistive device used (Walker) and Other gait observations present (Some spasticity and contractures. Gait also appears slightly magnetic) Motor exam (neuro): no tremor noted Deep tendon reflexes (DTR's): Right triceps reflex intensity grade: 2+, Left triceps reflex intensity grade: 2+, Rt Biceps (C5, C6): 2+, Left biceps reflex intensity grade: 2+, Right brachioradialis reflex intensity grade: 2+, Left brachioradialis reflex intensity grade: 2+, Right patellar reflex intensity grade: 3+, Left patellar reflex intensity grade: 3+, Right ankle reflex intensity grade: 2+ and Left ankle reflex intensity grade: 2+ Psych Appearance: grossly normal Mental Status: mental status grossly normal Affect: normal affect Attitude: cooperative Thought process: Normal thought process present Thought content: Normal thought content present Insight: Good insight present (Psych) Judgement: Good judgement present (Psych) Assessment & Plan Assessment & Plan (1) Occipital neuralgia of left side: Code(s): M54.81 - Occipital neuralgia Category: Medical (2) Trigger point of shoulder region: Code(s): M25.519 - Pain in unspecified shoulder Category: Medical (3) Impaired gait: Code(s): R26.9 - Unspecified abnormalities of gait and mobility Category: Medical (4) Cerebral ventriculomegaly: Code(s): G93.89 - Other specified disorders of brain Category: Medical Plan Sylvia is an 79-year-old female patient with a 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 She is here today for an evaluation of headaches that began after a recent fall. Based on the location and characteristics of her headache, I suspect that her headaches are related to musculoskeletal abnormalities including trigger points and tightening of the trapezius muscles which may cause significant tension and pain in the occipital nerve area. We could consider occipital nerve blocks and trigger point injections moving forward for pain persists. We also discussed physical therapy which may be also beneficial. In terms of her ventriculomegaly, it is difficult to discern whether or not this is a change as we do not have any prior imaging and although her gait is abnormal and perhaps slightly magnetic, she does not have other features of NPH such as distinct cognitive changes or distinct changes to her bladder. I will attempt to obtain prior imaging. She does exhibit some hyperreflexia to her patellars on exam which can also be seen with disorders of the cervical spine. I will obtain a C-spine MRI for further evaluation. For control of her pain, we discussed low-dose gabapentin is an option however given her imbalance we discussed taking extreme caution with this medication. She does live in an assisted living facility and we discussed upon taking her 1st dose having a staff member with her for assistance with ADLs. We also discussed stopping the medication if her imbalance worsened with the gabapentin. -c-spine MRI -a very cautious trial of low dose gabapentin -physical therapy for myofascial release -consider large volume tap pending MRI c-spine -consider occipital nerve block or trigger point injections 65 minutes spent with the patient including review of records, neuroimaging, details physical exam, discussion of patient presentation and plan with the attending physician, and explanation of plan of care with the patient and her son Coding Level of Care Code New Pt Level 5 (46163) Diagnoses Occipital neuralgia of left side M54.81 Trigger point of shoulder region M25.519 Impaired gait R26.9 Cerebral ventriculomegaly G93.89
[2025-07-08 09:05] VITALS: BP 172/87; PULSE 92; RESP 16; O2SAT 95; BMI 21.6
--- OUTSIDE RECORDS SUMMARY | 2025-07-08 09:43 | XMS_ITS ---
Author Name [facility] Organization Unknown Results Test Name/Text Value Interpretation Date Range Source PHOSPHATE SERPL [facility] 3.4 mg/dL Normal 06/24/2024 2.5 - 4.5 [facility] MAGNESIUM SERPL [facility] 1.9 mg/dL Normal 06/24/2024 1.7 - 2.8 [facility] VANCOMYCIN TROUGH SERPL [facility] 16.3 mcg/mL Normal 06/24/2024 10 - 20 [facility] MCV RBC AUTO 95.9 fL Normal 06/24/2024 78 - 100 [facility] RDW RBC AUTO RTO 14.9 % Normal 06/24/2024 12.1 - 16.2 [facility] MCHC RBC AUTO MCNC 32.9 g/dL Normal 06/24/2024 32 - 36 [facility] WBC NO. BLD AUTO 8.0 K/uL Normal 06/24/2024 4 - 10.5 [facility] MCH RBC QN AUTO 31.6 pg Normal 06/24/2024 25 - 33 [facility] HGB BLD MCNC 12.4 g/dL Below low normal 06/24/2024 12.5 - 16 [facility] PMV BLD AUTO 8.9 fL Normal 06/24/2024 7.4 - 11.4 [facility] MH RBC NO. BLD AUTO 3.93 M/uL Below low normal 06/24/2024 4.2 - 5.4 [facility] HCT VFR BLD AUTO 37.7 % Normal 06/24/2024 37 - 47 [facility] PLATELET NO. BLD AUTO 346.0 K/uL Normal 06/24/2024 150 - 450 [facility] Glomerular filtration rate/1.73 sq M. predicted 95.0 Normal 06/24/2024 60 - [facility] BUN SERPL [facility] 10.0 mg/dL Normal 06/24/2024 7 - 17 [facility] GLUCOSE P FAST SERPL [facility] 103.0 mg/dL Above high normal 06/24/2024 70 - 99 [facility] HCO3 SER SCNC 26.0 mmol/L Normal 06/24/2024 24 - 32 [facility] POTASSIUM SERPL SCNC 4.0 mmol/L Normal 06/24/2024 3.5 - 5.1 [facility] CHLORIDE SERPL SCNC 107.0 mmol/L Normal 06/24/2024 98 - 107 [facility] ALBUMIN SERPL BCG MCNC 3.0 g/dL Below low normal 06/24/2024 3.5 - 5 [facility] PROT SERPL [facility] 5.8 g/dL Below low normal 06/24/2024 6.4 - 8.5 [facility] SODIUM SERPL SC[facility] 142.0 mmol/L Normal 06/24/2024 135 - 14 5 [facility] BILIRUB SERPL [facility] 0.5 mg/dL Normal 06/24[facility]24 [facility] 49.0 U/L Normal 06/24/2024 7 - 52 [facility] CREAT SERPL MCNC 0.5 mg/dL Normal 06/24/2024 0.5 - 1 [facility] ANION GAP SERPL SCNC 9.0 mmol/L Normal 06/24/2024 5 - 14 [facility] ALP SERPL-CCNC 56.0 U/L Normal 06/24/2024 34 - 104 [facility] AST SERPL CCNC 33.0 U/L Normal 06/24/2024 5 - 40 [facility] CALCIUM SERPL MCNC 9.0 mg/dL Normal 06/24/2024 8.4 - 10.2 [facility] VANCOMYCIN TROUGH SERPL MCNC 8.9 mcg/mL Below low normal 06/23/2024 10 - 20 [facility] HCO3 SER SCNC 25.0 mmol/L Normal 06/23/2024 24 - 32 [facility] POTASSIUM SERPL SCNC 3.8 mmol/L Normal 06/23/2024 3.5 - 5.1 [facility] PROT SERPL MCNC 5.5 g/dL Below low normal 06/23/2024 6.4 - 8.5 [facility] ALP SERPL-CCNC 52.0 U/L Normal 06/23/2024 34 - [facility] 45.0 U/L Normal 06/23/2024 7 - 52 [facility] GLUCOSE P FAST SERPL MCNC 107.0 mg/dL Above high normal 06/23/2024 70 - [facility] ALBUMIN [facility] BCG MCNC 2.9 g/dL Below low normal 06/23/2024 3.5 - [facility] CALCIUM SERPL [facility] 8.8 mg/dL Normal 06/23/2024 8.4 - 10.[facility] CREAT SERPL [facility] 0.4 mg/dL Below low normal 06/23/2024 0.5 - [facility] BUN SERPL [facility] 10.0 mg/dL Normal 06/23/2024 7 - [address] [facility] AST SERPL CCNC 31.0 U/L Normal 06/23/2024 5 - 40 [facility] BILIRUB SERPL MCNC 0.5 mg/dL Normal 06/23/2024 0.3 - 1 [facility] SODIUM SERPL SCNC 141.0 mmol/L Normal 06/23/2024 135 - 14 [facility] ANION GAP SERPL SCNC 7.0 mmol/L Normal 06/23/2024 5 - [facility] CHLORIDE SERPL SCNC 109.0 mmol/L Above high normal 06/23/2024 98 - 107 [facility] Glomerular filtration rate/1.73 sq M. predicted 101.0 Normal 06/23/2024 60 - [facility] MAGNESIUM SERPL MCNC 1.8 mg/dL Normal 06/23/2024 1.7 - 2.8 [facility] HGB BLD MCNC 12.2 g/dL Below low normal 06/23/2024 12.5 - [facility] PLATELET NO. BLD AUTO 331.0 K/uL Normal 06/23/2024 150 - [facility] RDW RBC AUTO RTO 15.2 % Normal 06/23/2024 12.1 - 16.[facility] MCV RBC AUTO 96.4 fL Normal 06/23/2024 78 - 100 [facility] HCT VFR BLD AUTO 37.0 % Normal 06/23/2024 37 - 47 [facility] PMV BLD AUTO 9.0 fL Normal 06/23/2024 7.4 - 11.4 [facility] RBC NO. BLD AUTO 3.84 M/uL Below low normal 06/23/2024 4.2 - 5.4 [facility] MCH RBC QN AUTO 31.8 pg Normal 06/23/2024 25 - [address] [facility] MCHC RBC AUTO MCNC 33.0 g/dL Normal 06/23/2024 32 - 36 [facility] WBC NO. BLD AUTO 8.1 K/uL Normal 06/23/2024 4 - 10.5 [facility] PHOSPHATE SERPL MCNC 2.8 mg/dL Normal 06/23/2024 2.5 - 4.5 [facility] MAGNESIUM SERPL MCNC 1.7 mg/dL Normal 06/22/2024 1.7 - 2.8 [facility] PHOSPHATE SERPL MCNC 1.1 mg/dL Below low normal 06/22/2024 2.5 - 4.5 [facility] GLUCOSE P FAST SERPL MCNC 250.0 mg/dL Above high normal 06/22/2024 70 - 99 [facility] ALT SERPL CCNC 49.0 U/L Normal 06/22/2024 7 - 52 [facility] BILIRUB SERPL MCNC 0.3 mg/dL Normal 06/22/2024 0.3 - 1 [facility] Glomerular filtration rate/1.73 sq M. predicted 95.0 Normal 06/22/2024 60 - [facility] SODIUM SERPL SCNC 140.0 mmol/L Normal 06/22/2024 135 - 14 5 [facility] CALCIUM SERPL MCNC 8.3 mg/dL Below low normal 06/22/2024 8.4 - 10.2 [facility] BUN SERPL MCNC 13.0 mg/dL Normal 06/22/2024 7 - [address] [facility] CHLORIDE SERPL SCNC 110.0 mmol/L Above high normal 06/22/2024 98 - 107 [facility] ALP SERPL-CCNC 56.0 U/L Normal 06/22/2024 34 - 104 [facility] ALBUMIN SERPL BCG MCNC 2.9 g/dL Below low normal 06/22/2024 3.5 - [facility] CREAT SERPL MCNC 0.5 mg/dL Normal 06/22/2024 0.5 - 1 [facility] HCO3 SER SCNC 21.0 mmol/L Below low normal 06/22/2024 24 - 3 [facility] AST SERPL [facility] 36.0 U/L Normal 06/22/2024 5 - 40 [facility] ANION GAP SERPL SCNC 9.0 mmol/L Normal 06/22/2024 5 - 14 [facility] PROT SERPL MCNC 5.6 g/dL Below low normal 06/22/2024 6.4 - 8.5 [facility] POTASSIUM SERPL SCNC 3.2 mmol/L Below low normal 06/22/2024 3.5 - 5.1 [facility] MCV RBC AUTO 96.4 fL Normal 06/22/2024 78 - 100 [facility] PLATELET NO. BLD AUTO 333.0 K/uL Normal 06/22/2024 150 - [facility] RDW RBC AUTO RTO 15.2 % Normal 06/22/2024 12.1 - 16.2 [facility] MCH RBC QN AUTO 31.3 pg Normal 06/22/2024 25 - [address] [facility] PMV BLD AUTO 9.3 fL Normal 06/22/2024 7.4 - [facility] RBC AUTO [facility] 32.4 g/dL Normal 06/22/2024 32 - 36 [facility] WBC NO. BLD AUTO 8.0 K/uL Normal 06/22/2024 4 - 10.5 [facility] HGB BLD MCNC 12.0 g/dL Below low normal 06/22/2024 12.5 - [facility] RBC NO. BLD AUTO 3.84 M/uL Below low normal 06/22/2024 4.2 - 5.4 [facility] HCT VFR BLD AUTO 37.0 % Normal 06/22/2024 37 - 47 [facility] VANCOMYCIN TROUGH SERPL MCNC 8.8 mcg/mL Below low normal 06/22/2024 10 - [facility] CHLORIDE SERPL SCNC 114.0 mmol/L Above high normal 06/21/2024 98 - 107 [facility] CALCIUM SERPL MCNC 8.3 mg/dL Below low normal 06/21/2024 8.4 - 10.2 [facility] POTASSIUM SERPL SCNC 3.0 mmol/L Below low normal 06/21/2024 3.5 - 5.1 [facility] HCO3 SER SCNC 23.0 mmol/L Below low normal 06/21/2024 24 - 3 2 [facility] SODIUM SERPL SCNC 145.0 mmol/L Normal 06/21/2024 135 - 14 5 [facility] GLUCOSE SERPL MCNC 101.0 mg/dL Normal 06/21/2024 70 - 199 [facility] CREAT SERPL MCNC 0.4 mg/dL Below low normal 06/21/2024 0.5 - 1 [facility] Glomerular filtration rate/1.73 sq M. predicted 101.0 Normal 06/21/2024 60 - [facility] ANION GAP SERPL SCNC 8.0 mmol/L Normal 06/21/2024 5 - 14 [facility] BUN SERPL MCNC 22.0 mg/dL Above high normal 06/21/2024 7 - 1 7 [facility] CK SERPL CCNC 337.0 U/L Above high normal 06/21/2024 30 - 13 5 [facility] BASOPHILS NFR BLD AUTO 0.2 % Normal 06/21/2024 0 - 2 [facility] MCH RBC QN AUTO 31.0 pg Normal 06/21/2024 25 - [address] [facility] LYMPHOCYTES NFR BLD AUTO 15.0 % Below low normal 06/21/2024 20 - 48 [facility] MCHC RBC AUTO MCNC 32.6 g/dL Normal 06/21/2024 32 - 36 [facility] PMV BLD AUTO 9.5 fL Normal 06/21/2024 7.4 - 11.4 [facility] NEUTROPHILS NFR BLD AUTO 77.5 % Above high normal 06/21/2024 44 - 74 [facility] HGB BLD MCNC 12.2 g/dL Below low normal 06/21/2024 12.5 - 16 [facility] RBC NO. BLD AUTO 3.93 M/uL Below low normal 06/21/2024 4.2 - 5.4 [facility] EOSINOPHIL NO. BLD AUTO 0.1 K/uL Normal 06/21/2024 0 - 0.5 [facility] NEUTROPHILS NO. BLD AUTO 7.3 K/uL Normal 06/21/2024 1.8 - 7.8 [facility] MONOCYTES NO. BLD AUTO 0.6 K/uL Normal 06/21/2024 0 - 0.8 [facility] EOSINOPHIL NFR BLD AUTO 0.5 % Normal 06/21/2024 0 - 6 [facility] PLATELET NO. BLD AUTO 328.0 K/uL Normal 06/21/2024 150 - [facility] RDW RBC AUTO RTO 15.0 % Normal 06/21/2024 12.1 - 16.2 [facility] MONOCYTES NFR BLD AUTO 6.3 % Normal 06/21/2024 2 - 12 [facility] HCT VFR BLD AUTO 37.4 % Normal 06/21/2024 37 - 47 [facility] BASOPHILS IN BLOOD BY AUTOMATED COUNT 0.0 K/uL Normal 06/21/2024 0 - 0.2 [facility] WBC NO. BLD AUTO 9.4 K/uL Normal 06/21/2024 4 - 10.5 [facility] IMMATURE GRANULOCYTE, ABSOLUTE 0.05 k/uL Normal 06/21/2024 - 0.1 [facility] IMMATURE GRANULOCYTE, PERCENT 0.5 % Normal 06/21/2024 0 - 1 [facility] MCV RBC AUTO 95.2 fL Normal 06/21/2024 78 - [facility] LYMPHOC[facility]TES NO. BLD AUTO 1.4 K/uL Normal 06/21/2024 1 - 3.2 [facility] AST SERPL CCNC 45.0 U/L Above high normal 06/21/2024 5 - 40 [facility] ALT SERPL [facility] 48.0 U/L Normal 06/21/2024 7 - 52 [facility] ALP SERPL-CCNC 48.0 U/L Normal 06/21/2024 34 - 104 [facility] LDH SERPL L TO P CCNC 215.0 U/L Normal 06/21/2024 125 - 220 [facility] MAGNESIUM SERPL MCNC 1.7 mg/dL Normal 06/21/2024 1.7 - 2.8 [facility] VIT B12 SER MCNC 2165.0 pg/mL Above high normal 06/20/2024 1 80 - [facility] TSH SerPl DL<=0.005 mIU/L-aCnc 2.69 uIU/mL Normal 06/20/2024 0.45 - 5.33 [facility] Ketones Ur Ql Strip.auto >80 Abnormal 06/20/2024 - [facility] Hgb Ur Ql Strip.auto TRACE Abnormal 06/20/2024 - [facility] Prot Ur Ql Strip.auto 100.0 mg/dL Abnormal 06/20/2024 - [facility] Sp Gr Ur Strip.auto 1.015 Normal 06/20/2024 1.005 - 1.03 [facility] Nitrite Ur Ql Strip.auto NEGATIVE Normal 06/20/2024 - [facility] Glucose Ur Ql Strip.auto NEGATIVE Normal 06/20/2024 - [facility] pH Ur Strip.auto >9.0 Above high normal 06/20/2024 4.5 - 8 [facility] Color Ur Auto YELLOW Normal 06/20/2024 [facility] Clarity Ur Refract.auto CLOUDY Normal 06/20/2024 [facility] SPECIMEN SOURCE XXX URINE CLEAN CATCH Normal 06/20/2024 [facility] WBC number/area UrnS Auto 18.0 /HPF Above high normal 06/20/2024 0 - 5 [facility] Bacteria Ur Ql Auto PRESENT Abnormal 06/20/2024 - [facility] RBC number/area UrnS Auto 2.0 /HPF Normal 06/20/2024 0 - 3 [facility] Troponin I SerPl HS-mCnc 33.0 ng/L Above high normal 06/20/2024 0 - 14 [facility] LACTATE SERPL SCNC 1.5 mmol/L Normal 06/20/2024 0.5 - [facility] FLUBV RNA Nph Ql PATSY+non-probe NEGATIVE Normal 06/20/2024 [facility] Service [facility] XXX-Imp Cepheid GeneXpert (RT-PCR) [facility] Normal 06/20/2024 [facility] RSV RNA Nph Ql PATSY+non-probe NEGATIVE Normal 06/20/2024 [facility] FLUAV RNA Nph Ql PATSY+non-probe NEGATIVE Normal 06/20/2024 [facility] SPECIMEN SOURCE XXX NASOPHARYNGEAL Normal 06/20/2024 [facility] BNP BLD MCNC 376.0 pg/mL Above high normal 06/20/2024 0 - 10 0 [facility] MAGNESIUM SERPL MCNC 2.4 mg/dL Normal 06/20/2024 1.7 - 2.8 [facility] CALCIUM SERPL MCNC 10.5 mg/dL Above high normal 06/20/2024 8 .4 - 10.2 [facility] CHLORIDE SERPL SCNC 105.0 mmol/L Normal 06/20/2024 98 - 107 [facility] HCO3 SER SCNC 22.0 mmol/L Below low normal 06/20/2024 24 - 3 [facility] CREAT SERPL MCNC 0.8 mg/dL Normal 06/20/2024 0.5 - 1 [facility] POTASSIUM SERPL SCNC 4.0 mmol/L Normal 06/20/2024 3.5 - 5.1 [facility] ANION GAP SERPL SCNC 17.0 mmol/L Above high normal 06/20/2024 5 - [facility] Glomerular filtration rate/1.73 sq M. predicted 75.0 Normal 06/20/2024 60 - [facility] SODIUM SERPL SCNC 144.0 mmol/L Normal 06/20/2024 135 - 14 5 [facility] BUN SERPL MCNC 56.0 mg/dL Above high normal 06/20/2024 7 - 1 7 [facility] GLUCOSE SERPL MCNC 122.0 mg/dL Normal 06/20/2024 70 - 199 [facility] AMYLASE SERPL CCNC 70.0 U/L Normal 06/20/2024 29 - 103 [facility] EOSINOPHIL NO. BLD AUTO 0.0 K/uL Normal 06/20/2024 0 - 0.5 [facility] LYMPHOCYTES NO. BLD AUTO 0.4 K/uL Below low normal 06/20/2024 1 - 3.2 [facility] MONOCYTES NO. BLD AUTO 2.1 K/uL Above high normal 06/20/2024 0 - 0.8 [facility] NEUTROPHILS NFR BLD AUTO 88.4 % Above high normal 06/20/2024 44 - 74 [facility] LYMPHOCYTES NFR BLD AUTO 1.7 % Below low normal 06/20/2024 20 - 48 [facility] BASOPHILS NFR BLD AUTO 0.1 % Normal 06/20/2024 0 - 2 [facility] IMMATURE GRANULOCYTE, PERCENT 0.4 % Normal 06/20/2024 0 - 1 [facility] EOSINOPHIL NFR BLD AUTO 0.0 % Normal 06/20/2024 0 - 6 [facility] IMMATURE GRANULOCYTE, ABSOLUTE 0.09 k/uL Normal 06/20/2024 - 0.1 [facility] NEUTROPHILS NO. BLD AUTO 19.9 K/uL Above high normal 06/20/2024 1.8 - 7.8 [facility] BASOPHILS IN BLOOD BY AUTOMATED COUNT 0.0 K/uL Normal 06/20/2024 0 - 0.2 [facility] MONOCYTES NFR BLD AUTO 9.4 % Normal 06/20/2024 2 - 12 [facility] RDW RBC AUTO RTO 14.6 % Normal 06/20/2024 12.1 - 16.2 [facility] WBC NO. BLD AUTO 22.5 K/uL Above high normal 06/20/2024 4 - 10.5 [facility] RBC NO. BLD AUTO 5.03 M/uL Normal 06/20/2024 4.2 - 5.4 [facility] HGB BLD MCNC 15.7 g/dL Normal 06/20/2024 12.5 - 16 [facility] MCH RBC QN AUTO 31.2 pg Normal 06/20/2024 25 - [address] [facility] PMV BLD AUTO 9.4 fL Normal 06/20/2024 7.4 - 11.[facility] RBC AUTO 96.0 fL Normal 06/20/2024 78 - 100 [facility] HCT VFR BLD AUTO 48.3 % Above high normal 06/20/2024 37 - 47 [facility] MCHC RBC AUTO MCNC 32.5 g/dL Normal 06/20/2024 32 - [facility] PLATELET NO. BLD AUTO 434.0 K/uL Normal 06/20/2024 150 - [facility] CK SERPL CCNC 1163.0 U/L Above high normal 06/20/2024 30 - 1 [facility] Troponin I SerPl HS-mCnc 31.0 ng/L Above high normal 06/20/2024 0 - [facility] LACTATE SERPL SCNC 2.1 mmol/L Above high normal 06/20/2024 0 .5 - 2 [facility] LIPASE SERPL CCNC 6.0 U/L Below low normal 06/20/2024 11 - 82 [facility] LDH SERPL L TO P CCNC 412.0 U/L Above high normal 06/20/2024 125 - 220 [facility] ALT SERPL CC[facility] 81.0 U/L Above high normal 06/20/2024 7 - 52 [facility] AST SERPL CCNC 95.0 U/L Above high normal 06/20/2024 5 - 40 [facility] ALP SERPL-CCNC 76.0 U/L Normal 06/20/2024 34 - [facility]IL[facility] 1.0 mg/dL Normal 06/20/2024 0.3 - [facility] BILIRUB DIRECT SERPL MCNC 0.2 mg/dL Normal 06/20/2024 0 - 0.2 [facility] INR PPP 1.0 Normal 06/20/2024 0.8 - 1.1 [facility] PT TIME PPP 12.3 sec Normal 06/20/2024 10.5 - 13.3 [facility] History of Medication Use Medication Directions Dispensed Refills Start Date End Date Stat amoxicillin-clavulan ate (Augmentin) 875-125 mg per tablet Take 1 tablet by mouth 2 (two) times a day for 7 days. 08/18/2024 08/26/20 active amoxicillin-clavulan ate (Augmentin) 875-125 mg per tablet Take 1 tablet by mouth 2 (two) times a day for 7 days. 08/18/2024 08/26/20 active gadoterate meglumine (CLARISCAN, DOTAREM) injection 10 mL 10 mL, intravenous, Once in imaging, Starting on Sat08/10/24 at 1219, For 1 dose 08/10/2024 08/10/20 completed sodium hypochlorite (DAKIN'S, HALF-STRENGTH,) external solution Apply topically 1 (one) time each day. 07/31/2024 08/31/20 active sodium hypochlorite (DAKIN'S, HALF-STRENGTH,) external solution Apply topically 1 (one) time each day. 07/31/2024 08/31/20 active iopamidoL (ISOVUE-370) 370 mg iodine /mL (76 %) injection 100 mL 100 mL, intravenous, Once in imaging, Starting on Sat07/27/24 at 1334, For 1 dose 07/27/2024 07/27/20 completed cefdinir (OMNICEF) 300 MG capsule Take 1 capsule (300 mg total) by mouth 2 (two) times a day for 6 days. 06/24/2024 07/01/20 active doxycycline (VIBRAMYCIN) 100 MG capsule Take 1 capsule (100 mg total) by mouth 2 (two) times a day for 6 days. 06/24/2024 07/01/20 active calcium carbonate (TUMS) 500 MG chewable tablet Chew 1 tablet (500 mg total) by mouth 3 (three) times a day as needed. 06/24/2024 active docusate sodium 100 MG CAPS Take 100 mg by mouth daily for 5 days. 06/22/2024 07/01/20 active polyethylene glycol (MIRALAX) 17 g packet Take 17 g by mouth daily for 5 days. 06/22/2024 07/01/20 active Potassium Phosphates 15 mmol in dextrose 5 % 250 mL infusion 15 mmol, Intravenous, Administer over 180 Minutes, Every 3 hours (non scheduled), First dose (after last modification) on Sat06/22/24 at 1500, For 2 dosesat 83.3 mL/hr 06/22/2024 06/23/20 completed gadoterate meglumine (CLARISCAN) injection 7.5 mmol/15 mL 12 mL, Intravenous, IMG once as needed, contrast, Radiology contrast, Starting on Sat06/22/24 at 1502, For 1 doseLot #: [id number] Date: 12/20/2028 06/22/2024 06/22/20 completed HYDROmorphone (DILAUDID) injection 0.25 mg 0.25 mg, Intravenous, Once, On Sat06/22/24 at 1745, For 1 doseAdminister IV push over 2-3 minutes. 06/22/2024 06/22/20 completed collagenase (SANTYL) ointment Apply topically daily. 06/22/2024 active bacitracin ointment Topical, 3 times daily, First dose on 06/21/24 at 1600 06/21/2024 06/22/20 aborted potassium chloride ER tablet 40 mEq 40 mEq, Oral, Once, On 06/22/24 at 1445, For 1 doseDo not crush or chew tablet. To make a liquid dissolution from a tablet: 1) Place the whole tablet(s) in approximately cup of water (4 fluid ounces). 2) Allow approximately 2 minutes for the tablet(s) to disintegrate. 3) Stir for about milligan 06/21/2024 06/22/20 completed vancomycin (VANCOCIN) 500 MG injection Starting on 06/20/24 at 2039, For 1 doseKeshawnConchita tellescheikh: cabinet override 06/21/2024 06/21/20 completed Hydrocerin (EUCERIN) CREA cream Apply 1 application. topically daily. 06/21/2024 active mupirocin (BACTROBAN) 2 % ointment Apply topically daily. 06/21/2024 active nystatin (MYCOSTATIN) 406232 UNIT/ML suspension Take 5 mL (500,000 Units total) by mouth 4 (four) times a day for 7 days. 06/20/2024 07/03/20 active sodium chloride 0.9% (NS) infusion 100 mL/hr, Intravenous, Continuous, Starting on 06/20/24 at 1030 06/20/2024 06/21/20 aborted iopamidol (ISOVUE-370) 76 % injection 0-150 mL 0-150 mL, Intravenous, IMG once as needed, contrast, Starting on 06/20/24 at 0809, For 1 dose, Radiology Contrast 06/20/2024 06/20/20 completed sodium chloride 0.9% bolus (NS) 1,000 mL 1,000 mL, Intravenous, at 1,000 mL/hr, Once, On 06/20/24 at 0330, For 1 dose 06/20/2024 06/20/20 completed vancomycin (VANCOCIN) 1,000 mg in sodium chloride 0.9% (NS) 250 mL IVPB-MBP 1,000 mg, Intravenous, at 250 mL/hr, Every 12 hours, First dose (after last modification) on Sat06/24/24 at 1100 06/20/2024 06/20/20 active acetaminophen (TYLENOL) 325 MG tablet Take 2 tablets (650 mg total) by mouth every 6 (six) hours as needed. 06/20/2024 active bisacodyl (DULCOLAX) suppository 10 mg 10 mg, Rectal, Daily as needed, constipation, Starting on 06/20/24 at 1026 06/20/2024 active cefTRIAXone (ROCEPHIN) injection 1 g 1 g, Intravenous, Daily, First dose on 06/20/24 at 0900If ordered IV then reconstitute with 10 mL sterile water or normal saline and administer IV push over 3 to 5 minutes. 06/20/2024 active enoxaparin (LOVENOX) syringe 40 mg 40 mg, Subcutaneous, Every 24 hours, First dose on 06/20/24 at 1030Enoxaparin NOT recommended if CrCl<30 Administer in abdomen (at least 2 inches from navel) 06/20/2024 active senna (SENOKOT) 8.6 MG tablet 1 tablet 1 tablet, Oral, Daily, First dose on 06/20/24 at 1030Hold for loose stools. 06/20/2024 active acetaminophen (TYLENOL) 500 mg tablet Take by mouth. 12/05/2023 active acetaminophen (TYLENOL) 500 mg tablet Take by mouth. 12/05/2023 active methocarbamol (ROBAXIN) 750 MG tablet Take 1 tablet (750 mg total) by mouth 4 (four) times a day as needed. 08/27/2022 06/20/20 aborted oxyCODONE (ROXICODONE) 5 MG immediate release tablet Take 1 tablet (5 mg total) by mouth every 4 (four) hours as needed for pain. 08/27/2022 06/20/20 aborted senna-docusate (Senokot S) 8.6-50 MG Take 1-2 tablets by mouth daily. Take one to two tabs daily to prevent constipation while on narcotic pain medications. . 08/27/2022 06/20/20 aborted lisinopril (PRINIVIL,ZESTRIL) tablet 10 mg Take 1 tablet (10 mg total) by mouth daily. 06/18/2022 06/20/20 aborted Tdap (BOOSTRIX) 5-2.5-18.5 LF-MCG/0.5 injection Inject 0.5 mL into the shoulder, thigh, or buttocks once. 04/22/2020 active acetaminophen (TYLENOL EXTRA STRENGTH) 500 MG tablet Take 2 tablets (1,000 mg total) by mouth every 6 (six) hours as needed. 06/20/20 aborted cholecalciferol (VITAMIN D3) 1000 UNITS tablet Take 1,000 Units by mouth daily. 06/20/20 aborted Misc Natural Products (OSTEO BI-FLEX JOINT SHIELD PO) Take 2 tablets by mouth daily. 06/20/20 aborted Multiple Minerals-Vitamins (CALCIUM & VIT D3 BONE HEALTH PO) Take 1 tablet by mouth daily. 06/20/20 aborted Probiotic Product (PROBIOTIC PO) Take 1 caplet by mouth daily. 06/20/20 24 aborted vitamin C (ASCORBIC ACID) 250 MG tablet Take 500 mg by mouth daily. 06/20/20 24 aborted aspirin 81 mg tablet,delayed release TAKE ONE TABLET BY MOUTH TWICE A DAY FOR 28 DAYS active lisinopril 10 mg tablet TAKE ONE TABLET BY MOUTH EVERY DAY active meloxicam 7.5 mg tablet TAKE ONE TABLET BY MOUTH EVERY DAY active methocarbamol 750 mg tablet TAKE ONE TABLET BY MOUTH FOUR TIMES A DAY NEEDED active omeprazole 20 mg capsule,delayed release TAKE ONE CAPSULE BY MOUTH EVERY DAY FOR 42 DAYS TAKE WHILE ON ECASA TO AVOID GI DISTRESS active oxycodone 5 mg tablet TAKE ONE TABLET BY MOUTH EVERY 4 HOURS NEEDED FOR PAIN active Senna Plus 8.6 mg-50 mg tablet TAKE 1-2 TABLETS BY MOUTH DAILY TO PREVENT CONSTIPATION WHILE ON NARCOTIC PAIN MEDICATIONS. active acetaminophen (TYLENOL) 500 MG tablet Take by mouth 4 times daily (every 6 hours) as needed. active Ascorbic Acid (VITAMIN C PO) Take by mouth. active cholecalciferol (VITAMIN D3) 1000 units tablet Take by mouth. active ibuprofen (ADVIL,MOTRIN) 200 mg tablet Take by mouth every 6 (six) hours if needed. active Multiple Vitamins-Minerals (MULTIVITAMIN WITH MINERALS) tablet Take 1 tablet by mouth daily. active multivitamin tablet Take 1 tablet by mouth 1 (one) time each day. active Allergies Allergen Reaction Severity Comment Documented Date Source Statu s PENICILLINS HIVES 01/31/2016 [facility] active Problems Problem Status Onset Date Problem Type Date of Resolution Source Living alone active 2017-11-20 ProblemAct [facility] Dyslipidemia active 2017-01-02 ProblemAct [facility] Bilateral pseudophakia active 2017-07-17 ProblemAct [facility] Pancreatic cyst active 2024-06-[address] [facility] Acute cystitis without hematuria active 2024-06-21 [facility]ulome[facility] active 2024-06-21 ProblemAct [facility] Acute metabolic encephalopathy active 2024-06-20 ProblemAct [facility] Inguinal hernia active 2024-05-[address] [facility] Lumbar spinal stenosis active 2016-03-27 ProblemAct [facility] Pressure injury of sacral region, unstageable active 2024-06-20 ProblemAct [facility] BMI 22.0-22.9, adult active 2017-07-17 ProblemAct [facility] Left knee DJD active 2022-08-28 ProblemAct [facility] Essential hypertension active 2017-01-02 ProblemAct [facility] Rhabdomyolysis active 2024-06-20 ProblemAct [facility] SIRS (systemic inflammatory response syndrome) active 2024-06-20 ProblemAct [facility] Osteomyelitis of sacrum (CMS/HCC V24, CMS/HCC V28) active 2024-08-14 ProblemAct [facility] Stage IV pressure ulcer of sacral region (CMS/HCC V24, CMS/HCC V28) active 2024-07-31 ProblemAct [facility] Infected decubitus ulcer, unspecified ulcer stage active EncounterDiagnosisAct CT_THS NICOLE Hydronephrosis with renal calculous obstruction active 2024-01-08 ProblemAct [facility] Abnormality of left breast on screening mammogram active 2021-01-03 ProblemAct [facility] Urinary tract artificial opening care active 2024-01-08 ProblemAct [facility] Infection and inflammatory reaction due to indwelling urethral catheter, subsequent encounter active 2024-01-08 ProblemAct [facility] Arthropathy active 2024-01-08 ProblemAct [facility] H/O Spinal surgery active 2019-05-28 ProblemAct [facility] Fitting and adjustment of urinary device active 2024-01-08 ProblemAct [facility] Breast calcification, left active 2021-01-03 ProblemAct [facility] History of brain tumor active 2019-05-28 ProblemAct [facility] Primary osteoarthritis of left knee active 2019-05-28 ProblemAct [facility] Immunizations Vaccine Date Source Lot Number Status Covid-19 (Moderna 12+) Fall 2022 0.5mL 07/17/2023 [facility] [id number] completed Influenza Quadravalent, 0.5m l (Fluzone High-dose) 65yo and older 07/17/2023 [facility] [id number] comple david Influenza Quadravalent, 0.5m l (Fluad) 65yo and older 06/26/2022 [facility] [id number] completed Covid-19 (Moderna 12+) 100mcg/0.5mL dosage 01/03/2022 [facility] [id number] completed Covid-19 (Moderna 12+) 100mcg/0.5mL dosage 09/04/2021 [facility] [id number] completed Influenza Quadravalent, 0.5m l (Fluzone High-dose) 65yo and older 06/13/2021 [facility] [id number] comple david Influenza Quadrivalent, 0.5m l, preservative free (Fluarix; FluLaval; Fluzone) ages 6mo and older (Afluria) 3yo and older 06/[id number] Influenza, Quadrivalent 06/13/2021 [facility] [id number] ompleted Covid-19 (Moderna 12+) 100mcg/0.5mL dosage 02/02/2021 [facility] [id number] completed Covid-19 (Moderna 12+) 100mcg/0.5mL dosage 01/04/2021 [facility] [id number] completed Influenza Quadravalent, 0.5m l (Fluad) 65yo and older 06/02/2020 [facility] Influenza Inactivated/Split Preservative Free IM 06/10/2019 [facility] Influ[facility], Unspecified 06/10/[facility] Pneumococcal polysaccharide 23 valent (Pneumovax 23) 2yo and older 06/10/2019 [facility] [id number] com pleted Pneumococcal conjugate 13 va lent (Prevnar 13, PCV13) 2mo and older 06/03/2018 [facility] complet ed Influenza trivalent, with pr eservative (Fluzone; Afluria) 6mo and older 06/28/2016 [facility] [id number] completed Influenza Vaccine, Unspecified formulation 06/28/2016 [facility] [id number] completed Encounters Encounter Type Encounter Reason Primary Diagnosis Location Date Ambulatory Follow-up Pressure ulcer o f unspecified site, unspecified stage [facility] 01/12/2025 Ambulatory Follow-up Pressure ulcer o f unspecified site, unstageable [facility] 11/17/2024 Ambulatory Wound Care [facility] 09/29/2024 Ambulatory Follow-up Pressure ulcer o f unspecified site, unstageable [facility] 09/29/2024 Ambulatory Wound Care [facility] 09/08/2024 Ambulatory Wound Care [facility] 08/27/2024 Ambulatory Establish Care Pressure ulcer o f sacral region, stage 4 [facility] 08/18/2024 Ambulatory Wound Care Pressure ulcer o f sacral region, stage 4 [facility] 08/14/2024 Ambulatory Pressure ulcer of sacral region, stage 4 Pressure ulcer of sacral region, stage 4 [facility] 08/10/2024 Ambulatory Wound Care Pressure ulcer o f sacral region, stage 4 [facility] 07/31/2024 Ambulatory Pressure ulcer of sacral region, unstageable Pressure ulcer of sacral region, unstageable [facility] 07/27/2024 Ambulatory [facility] 07/23/2024 Ambulatory [facility] 07/23/20 Ambulatory [facility] 07/16/2024 Ambulatory [facility] 07/16/20 Inpatient Rhabdomyolysis Rhabdomyolysis [facility] 06/20/2024 Ambulatory Encounter for follow-up examination after completed treatment for conditions other than malignant neoplasm Encounter for follow-up examination after completed treatment for conditions other than malignant neoplasm [facility] 11/25/2023 Ambulatory [facility] 10/16/2023 Ambulatory [facility] 10/15/2023 Ambulatory [facility] 09/24/2023 Ambulatory [facility] 03/12/2023 Ambulatory [facility] 02/28/2023 Ambulatory [facility] 01/24/2023 Ambulatory [facility] 01/14/2023 Ambulatory Essential (prima ry) hypertension [facility] 10/20/2021 Care Team Organization Name Specialty Phone Email Start Date End Da te [facility] 11/17/2024 [facility] 08/21/2024 [facility] 08/18/2024 [facility] Primary Care 07/28/2024 [facility] 07/27/2024 [facility] 06/20/2024 04/06/2025 [facility] 06/20/2024 [facility] 05/29/2024 04/06/2025 [facility] 05/29[facility]20[facility]/25/202312[facility]09 [facility] 11/15/2023 New Subscriber Name 11/15/2023 0 05/10/2025 [facility] Cherrie Samaniegom Primary Care 10/20/202112/09 [facility] 10/20/202110/20
--- OUTSIDE RECORDS SUMMARY | 2025-07-08 09:43 | XMS_ITS | Clinical Summary ---
Author Organization [address] [place] [address] Phone Care Team Providers Care Svp Monetization Name Role Phone Unavailable Primary Care Provider Unavailabl e Allergies Active Allergy Reactions Criticality Noted Date Comments Penicillins Hives Medium 01/31/2016 Medications acetaminophen (TYLENOL) 500 mg tablet Take by mouth. 12/05/2023 Active ibuprofen (ADVIL,MOTRIN) 200 mg tablet Take by mouth every 6 (six) hours if needed. Active multivitamin tablet Take 1 tablet by mouth 1 (one) time each day. Active Active Problems Problem Noted Date Diagnosed Date Osteomyelitis of sacrum ([facility] V24, [facility] V2 8) 08/14/2024 Stage IV pressure ulcer of s acral region ([facility] V24, [facility] V28) 07/31/2024 Immunizations Immunization Administration Dates Next Due Influenza Quadravalent, 0.5ml [...] IOL IMPLANT; Surgeon: Ravi Maki MD; Location: [facility]; Service: Ophthalmology; Laterality: Left; CATARACT EXTRACTION W/ INTRAOCULAR LENS IMPLANT 02/19/2017 Right PROCEDURE:CATARACT EXTRACTION W/ INTRAOCULAR LENS IMPLANT;COMMENT:Procedure: EXTRACTION CATARACT WITH IOL IMPLANT; Surgeon: Ravi Maki MD; Location: [facility]; Service: Ophthalmology; Laterality: Right; LUMBAR FUSION 07/26/2016 Bilateral PROCEDURE:LUMBAR FUSION;COMMENT:Procedure: L4-5 POSTERIOR LUMBAR SPINE FUSION; Surgeon: Martín Pang MD; Location: [facility]; Service: Spine; Laterality: Bilateral; LUMBAR LAMINECTOMY 07/26/2016 Right PROCEDURE:LUMBAR LAMINECTOMY;COMMENT:Procedure : RIGHT L3-4L4-5 DECOMPRESSION POSTERIOR LUMBAR; Surgeon: Martín Pang MD; Location: [facility]; Service: Spine; Laterality: Right; LUMBAR EPIDURAL INJECTION 03/19/2016 Right PROCEDURE:LUMBAR EPIDURAL INJECTION;COMMENT:Procedure: Right L4-5 transforaminal SUREKHA; Surgeon: Kandace Ochoa MD; Location: [facility]; Service: Rehab Medicine; Laterality: Right; LUMBAR EPIDURAL INJECTION 02/02/2016 N/A PROCEDURE:LUMBAR EPIDURAL INJECTION;COMMENT:Procedure: INJECTION ANESTHETIC AGENT LUMBAR; Surgeon: Kandace Ochoa MD; Location: [facility]; Service: Rehab Medicine; Laterality: N/A; UPPER GASTROINTESTINAL ENDOSCOPY PROCEDURE:UPPER GASTROINTESTINAL ENDOSCOPY KNEE ARTHROPLASTY 08/27/2022 Left PROCEDURE:KNEE ARTHROPLASTY;COMMENT:Dr. 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[facility]);COMMENT:RT brain surgery Osteoarthritis DX:Osteoarthriti s COVID-19 vaccine [...] 0.6 oz pur e alcohol) specia occasions Comments Unknown Sex and Gender Information Value Date Recorded Sex Assigned at Female 07/21/2024 3:07 PM EDT Legal Sex Female 1:21 AM EST Gender Identity Female 07/21/2024 3:07 PM EDT Sexual Orientation Choose not to disclose 2023 3:07 PM EDT Obstetrics History Last Filed Vital Signs Vital Sign Reading Time Taken Comments Blood Pressure 167/87 01/12/2025 10:41 AM EDT Pulse 68 01/12/2025 10:37 AM EDT Temperature 36.7 C (98 F) 01/12/2025 10:37 AM EDT Respiratory Rate 16 11/17/2024 12:54 PM EST Oxygen Saturation 96% 01/12/2025 10:37 AM EDT Inhaled Oxygen Concentration - - Weight 55.3 kg (122 lb) 01/12/2025 10:37 AM EDT Height 161.3 cm (5' 3.5 ) 01/12/2025 10:37 AM ED T Body Mass Index 21.27 01/12/2025 10:37 AM EDT Plan of Treatment Upcoming Encounters Date Type Department Care Team (Late st Contact Info) Description 07/27/2025 10:30 AM EST Office Visit Infectious Disease - [facility] [address] [place] [address] Alon Tsai MD [address] [place], [place] [id number] Health Maintenance Due Date Last Done Comments DTaP,Tdap,and Td Vaccines (1 - Tdap) 1964 Zoster Vaccines (1 of 2) 1994 RSV Immunization Adult Patients (1 - 1-dose 75+ series) 2019 Cholesterol Screening (Lipid Panel) 09/02/2022 Medicare Annual Wellness Visit 09/02/2022 Social Influencers of Health Screening 09/02/2022 COVID-19 Vaccine ( season) 2025 07/17/2023, 01/03/2022, 09/04/2021, Additional history exists Influenza Vaccine (#1) 2025 , 06/26/2022, 06/13/2021, Additional history exists Falls Risk Assessment 11/03/2025 11/03/2024 Hypertension/CHF/CAD Annual BMP Blood Test 01/07/2026 01/07/2025, 06/24/2024, 06/24/2024, Additional history exists Osteoporosis Screening (Bone Density Screening) 03/27/2032 03/27/2022 Pneumococcal Vaccine: 50+ Years Completed 06/10/2019, 06/03/2018 Depression Screening Completed 10/20/2024 HIB Vaccines Aged Out No longer eligi [...] patient's age to complete this topic Meningococcal B Vaccine Aged Out No l onger eligible based on patient's age to complete this topic RSV Immunization Patients Under 20 months Aged Out No longer eligible based on patient's age to complete this topic Varicella Vaccines Aged Out No longer eligible based on patient's age to complete this topic Goals Goal Patient Goal Type Associated Problems Recent Progress Patient-Stated? Author Wound volume breakdown reduced by X% by [...] ulceration/compr omised skin integrity. Pilar Resendiz RN Medical Devices Implanted Type Area Loan Operations Manager Device Identifier Shelf Expiration Date Model / Serial / Lot Cement Bone Surg Simplex Radiopq Stry-Howm [id number] Implanted:Qty: 1 on 08/27/2022 by Rocco Wu MD Left: Knee [employer] [id number] 08/22/2023 6191-1-010 / / [id number] Cement Bone Surg Simplex Radiopq Stry-Howm [id number] Implanted:Qty: 1 on 08/27/2022 by Rocco Wu MD Left: Knee [employer] [id number] 08/22/2023 6191-1-010 / / [id number] Insert Tib Triathlon Baseplate Stry-Howm [id number] Implanted:Qty: 1 on 08/27/2022 by Rocco Wu MD Left: Knee [employer] [id number] 07/02/2027 5521-B-300 / / [id number] Tibial Bearing Insert Cs 10mm Stry-Howm [id number]-[id number] Implanted:Qty: 1 on 08/27/2022 by Rocco Wu MD Left: Knee [employer] [id number] 05/03/2027 5531-G-310 -E / / [id number] Knee Compon Fem Cmnt Sz3 L [facility] [id number] Implanted:Qty: 1 on 08/27/2022 by Rocco Wu MD Left: Knee [employer] [id number] 06/14/2027 5510-F-301 / / [id number] Procedures Procedure Name Priority Date/Time Associated Diagnosis Comments COMPREHENSIVE METABOLIC PANEL Routine 01/07/2025 11:21 AM EDT Decubitus ulcer, unstageable (CMS/HCC V24, CMS/HCC V28) BONE DENSITY STUDY Routine 03/27/2022 1: 38 PM EDT Asymptomatic menopausal state Encounter for screening for osteoporosis from Last 3 Months or Most Recently Relevant to Health Maintenance Results * (ABNORMAL) Comprehensive metabolic panel (01/07/2025 11:21 AM EDT) Sodium 141 133 - 145 mmol/L LAB CHEMISTRY METHOD 01/07/2025 2:05 PM [facility] Potassium 4.1 3.5 - 5.5 mmol/L LAB CHEMISTRY METHOD 01/07/2025 2:05 PM [facility] Chloride 105 96 - 110 mmol/L LAB CHEMISTRY METHOD 01/07/2025 2:05 PM [facility] CO2 26 21 - 32 mmol/L LAB CHEMISTRY METHOD 01/07/2025 2:05 PM [facility] Anion Gap 10 3 - 11 LAB CHEMISTRY METHOD 01/07/2025 2:05 PM [facility] Glucose 112(H) 70 - 100 mg/dL LAB CHEMISTRY METHOD 01/07/2025 2:05 PM [facility] BUN 19 5 - 25 mg/dL LAB CHEMISTRY METHOD 01/07/2025 2:05 PM [facility] Creatinine 0.63 0.50 - 1.10 mg/dL LAB CHEMISTRY METHOD 01/07/2025 2:05 PM [facility] eGFR 90 >=60 mL/min/1. 73m2 LAB CHEMISTRY METHOD 01/07/2025 2:05 PM [facility] Comment:Calculation based on the Chronic Kidney Disease Epidemiology Collaboration (CKD-EPI) equation refit without adjustment for race. BUN/Creatinine Ratio 30.2 LAB CHEMISTRY METHOD 01/07/2025 2:05 PM [facility] Calcium 10.2 8.5 - 10.5 mg/dL LAB CHEMISTRY METHOD 01/07/2025 2:05 PM [facility] AST (SGOT) 25 10 - 42 unit/L LAB CHEMISTRY METHOD 01/07/2025 2:05 PM [facility] ALT (SGPT) 31 10 - 60 unit/L LAB CHEMISTRY METHOD 01/07/2025 2:05 PM [facility] Alkaline Phosphatase 82 42 - 121 unit/L LAB CHEMISTRY METHOD 01/07/2025 2:05 PM [facility] Total Protein 7.2 6.0 - 8.0 g/dL LAB CHEMISTRY METHOD 01/07/2025 2:05 PM [facility] Albumin 3.8 3.2 - 5.0 g/dL LAB CHEMISTRY METHOD 01/07/2025 2:05 PM [facility] Total Bilirubin 0.5 0.0 - 1.4 mg/dL LAB CHEMISTRY METHOD 01/07/2025 2:05 PM [facility] Blood Venous blood specimen / Unknown Venipuncture / Unknown 01/07/2025 11:21 AM EDT 01/07/2025 12:34 PM EDT us Chantelle PIERCE LAB BLOOD ORDERABLES Magali girma Result [facility] [address] [facility] [place] [address], * BONE DENSITY STUDY (03/27/2022 1:38 PM EDT) Anatomical Region Laterality Modality Bone Densitometr y 03/19/2022 12:0 3 PM EDT Narrative 03/28/2022 11:56 AM EDT Bone density study Indication and risk factors: Postmenopausal female. Screening for osteoporosis. Study acquired on a LunEcorithmigSiving Egil [place] Advance densitometer. Imaging of the lumbar spine [...] on 03/28/2022 11:56 AM. Workstation Name - [facility] Procedure Note Bárbara Weller MD - 09/14/2022 Bone density study Indication and risk factors: Postmenopausal female. Screening forosteoporosis. Study acquired on a YextigSiving Egil [employer] Advance densitometer. Imaging of thelumbar spine and [...] Weller on 03/28/2022 11:56 AM.Workstation Name - BÁRBARAANTONYOSWALDIrene Janki Samaniego MD [place] DXA PROCEDURES Final R esult from Last 3 Months or Most Recently Relevant to Health Maintenance Additional Health Concerns Active Problems Noted Date Diagnosed Date Impaired Tissue 10/20/2024 Education needed on impact of smoking on wound 0 10/20/2024 Education needed related to ulceration/compromised skin integrity. 10/20/2024 Insurance [employer] MEDICARE Advance Directives Documents on File Type Date Recorded Patient Project Portfolio Analyst Expl anation Health Care Decision (hx) 06/25/2024 RINKU TINSLEY DIRECTIVE
--- OUTSIDE RECORDS SUMMARY | 2025-07-08 09:43 | XMS_ITS | Clinical Summary ---
Author Organization [employer] Address [address] [place] [address] [address] [place] [address] Care Team Providers Care Chief Executive Or Managing Director Name Role Phone Neville Mendez MD Primary Care Provider [phone] Allergies Active Allergy Reactions Criticality Noted Date Comments Penicillin G Hives 05/31/2025 Medications * This document contains information received from the source organization and may not represent a complete record from that organization. naproxen (Naprosyn) 375 MG tabletIndicatio ns:Cervicogenic headache Take 1 tablet (375 mg) by mouth with breakfast and with evening meal. 20 tablet 5 05/31/20 26 Active tiZANidine (Zanaflex) 2 MG tabletIndicatio ns:Cervicogenic headache Take 1 tablet (2 mg) by mouth at bedtime for 10 days. 10 tablet 5 Active Active Problems Problem Noted Date Diagnosed Date Frequent falls 06/01/2025 Other hydrocephalus 06/01/2025 Encounter for behavioral health screening 2024 Irritable bowel syndrome with diarrhea 5 Osteomyelitis of sacrum ([facility]) 08/14/2024 Stage IV pressure ulcer of sacral region ([facility]/HC C) 07/31/2024 Encounters * This document contains information received from the source organization and may not represent a complete record from that organization. Date Type Department Care Team Description 06/14/2025 Telephone [facility] [address] [place] [address] Neville Mendez MD 06/01/2025 Orders Only [facility] [address] [place] [address] Neville Mendez MD Frequent falls (Primary Dx); Other hydrocephalus (CMS/HCC) 06/01/2025 Telephone [facility] [address] [place] [address] Neville Mendez MD [facility] Referral 05/31/2025 1:00 PM EDT Office Visit [facility] [address] [place], [place] [phone] Neville Mendez MD Cervicogenic headache (Primary Dx); Obstructive hydrocephalus (CMS/HCC); Elevated BP without diagnosis of hypertension; Chronic pain of left knee; Frequent falls 05/31/2025 Travel 05/28/2025 Telephone [facility] [address] [place], [place] [phone] Neville Mendez MD chart prep from Last 3 Months Social History Tobacco Use Types Packs/Day Years Used Date Smoking Tobacco: Unknown Tobacco Cessation:Counseling Given: No Depression Answer Date Recorded Patient Health Questionnaire-9 Score 0 04/13/2025 Patient Health Questionnaire-9 Score 0 04/13/2025 Last PHQ-9: Questionnaire Data Not on file 0 04/13/2025 Housing Stability Answer Date Recorded What is your housing situation today? I have stefano irby 02/26/[address] you li ve. Do you have problems with any of the following? None of the above 02/26/2025 Food Insecurity Answer Date Recorded Within the past 12 months, y ou worried that your food would run out before you got money to buy more: Never True 02/26/2025 Within the past 12 months,th e food you bought just didn't last and you didn't have enough money to get more: Never True 02/2025 Transportation Answer Date Recorded In the past 12 months, has l ack of transportation kept you from medical appts, meetings, work or from getting things needed for daily living? No 02/26/2025 Utilities Answer Date Recorded In the past 12 months, has t he electric, gas, oil or water company threatened to shut off services in your home? No 02/26/2025 Depression Answer Date Recorded Patient Health Questionnaire-2 Score 0 04/13/2025 Internet Access Answer Date Recorded Internet Access Q1 Yes 02/26/2025 Internet Access Q2 Not on file 02/26/2025 Comments Unknown Sex and Gender Information Value Date Recorded Sex Assigned at Female 02/25/2025 3:52 PM EDT Legal Sex Female 3:47 PM EDT Gender Identity Female 02/25/2025 3:52 PM EDT Sexual Orientation Straight 02/25/2025 3: 52 PM EDT Last Filed Vital Signs Vital Sign Reading Time Taken Comments Blood Pressure 177/87 05/31/2025 1:06 PM EDT Pulse 106 05/31/2025 1:06 PM EDT Temperature 36.5 C (97.7 F) 02/26/2025 1:43 PM EDT Respiratory Rate 20 05/31/2025 1:06 PM EDT Oxygen Saturation 95% 05/31/2025 1:06 PM EDT Inhaled Oxygen Concentration - - Weight 56.2 kg (124 lb) 05/31/2025 1:06 PM EDT Height 161.3 cm (5' 3.5 ) 05/31/2025 1:06 PM EDT Body Mass Index 21.62 05/31/2025 1:06 PM EDT Plan of Treatment Health Maintenance Due Date Last Done Comments Lipid Panel 1945 DTaP/Tdap/Td Vaccines (1 - Tdap) 1963 Zoster Vaccines (1 of 2) 1994 RSV Patients and Patients Aged 60 years or older (1 - 1-dose 75+ series) 2019 COVID-19 Vaccine ( season) 2025 07/17/2023, 01/03/2022, 09/04/2021, Additional history exists Influenza Vaccine (#1) 2025 , 06/26/2022, 06/13/2021, Additional history exists Alcohol/Substance Use Screening 02/26/2026 02/26/2025 SDOH Screening 02/26/2026 02/26/2025 Depression Screening 04/13/2026 04/13/2025, 04/13/20 25 Tobacco Screening 05/31/2026 05/31/2025 Pneumococcal Vaccine: 50+ Years Completed 06/10/2019, 06/03/2018 HIB Vaccines Aged [...] patient's age to complete this topic Meningococcal Vaccine Aged Out No rusty lovely eligible based on patient's age to complete this topic RSV under 20 months Aged Out No longe r eligible based on patient's age to complete this topic Rotavirus Vaccines Aged Out No longer eligible based on patient's age to complete this topic Insurance [facility] Care Teams Chief Executive Or Managing Director Relationship Specialty Start Date End Date Neville Mendez MD [address] [place] [address] PCP - General Internal Medicine 02/26/25
== END 2025-07-08 10:09 | disposition home or self-care (01) ==
LOC: HO.HSM 08:52
PROVIDERS: PCP Internal Medicine; Visit Provider Nurse Practitioner
DX: M54.81 Occipital neuralgia (principal); M25.519 Pain in unspecified shoulder; R26.9 Unspecified abnormalities of gait and mobility; G93.89 Other specified disorders of brain
CPT/HCPCS: 99205

== ENCOUNTER → 2025-07-08 08:51 | Outpatient (BNVA) | payer MEDICARE, SELFPAY | PROVIDERS: PCP Internal Medicine; Visit Provider Nurse Practitioner | DX: M54.81 Occipital neuralgia (principal); M25.519 Pain in unspecified shoulder; R26.9 Unspecified abnormalities of gait and mobility; G93.89 Other specified disorders of brain; Z91.81 History of falling | CPT/HCPCS: 99202 ==

== ENCOUNTER 2025-09-07 13:05 | Outpatient (REF) | payer MEDICARE, SELFPAY ==
--- OUTSIDE RECORDS SUMMARY | 2025-09-02 13:00 | XMS_ITS | Encounter Summary ---
Author Organization [employer] Address [address] [place] [address] 7 [place] [address] Care Team Providers Care Campus Wellness Coordinator Name Role Phone Neville Mendez MD Primary Care Provider [phone] Reason for Visit * Reason Comments Follow-up Encounter Details Date Type Department Care Team (Latest Contact Info) Description 09/02/2025 1:00 PM EST Office Visit [facility] [address] [place], [place] [phone] Neville Mendez MD [address] [place] [address] Cervicogenic headache (Primary Dx); Obstructive hydrocephalus (CMS/HCC) (HCC); Elevated blood pressure reading; Frequent falls Social History Tobacco Use Types Packs/Day Years Used Date Smoking Tobacco: Unknown Depression Answer Date Recorded Patient Health Questionnaire-9 [...] Orientation Straight 02/25/2025 3: 52 PM EDT documented as of this encounter Last Filed Vital Signs Vital Sign Reading Time Taken Comments Blood Pressure 159/82 09/02/2025 12:59 PM EST Pulse 99 09/02/2025 12:59 PM EST Temperature - - Respiratory Rate 20 09/02/2025 12:59 PM EST Oxygen Saturation 92% 09/02/2025 12:59 PM EST Inhaled Oxygen Concentration - - Weight 55.8 kg (123 lb) 09/02/2025 12:59 PM EST Height 161.3 cm (5' 3.5 ) 09/02/2025 12:59 PM ES T Body Mass Index 21.45 09/02/2025 12:59 PM EST documented in this encounter Progress Notes * Neville Mendez MD - 09/02/2025 1:00 PM EST SUBJECTIVE Sylvia Jimenez is a 79 y.o. female who presents for Follow-up. HPI Neuro evaluation on 07/08/25 with the impression that pt has a musculoskeletal cause of her headache, Possible occipital neuralgia. Also evaluated w/ the impression of Impaired gait and Cerebral ventriculomegaly A low dose Gabapentin was offered w/ PT for myofascial release, Nerve block or trigger point injections. History obtained from Ms Sylvia Jimenez : Sylvia Jimenez, 79-year-old female - Chronic headaches; ongoing, head is still hurting - Dizziness after starting low-dose gabapentin; fell; stopped medication after 7 days - High blood pressure readings at prior visits; reported variability (120s to 150s); acknowledges prior readings up to 177 - Blood pressure reported high at neurologist visit: 172/87 - Denies dizziness today - Prior tailbone injury; had home physical therapy previously - History of cerumen impaction - Ulcer earlier this year; resolved months ago - Recent illness lasting 14 days; resolved - No diarrhea currently Problem List[1] Allergies[2] Medications Ordered Prior to Encounter[3] Review of Systems Constitutional: Negative for appetite change, chills and diaphoresis. Eyes: Negative for photophobia, pain and redness. Respiratory: Negative for cough, choking and shortness of breath. Gastrointestinal: Negative for abdominal pain, anal bleeding and blood in stool. OBJECTIVE Vitals: 09/02/25 1259 BP: (!) 159/82 BP Location: Left arm Patient Position: Sitting BP Cuff Size: Adult Pulse: 99 Resp: 20 SpO2: 92% Weight: 123 lb (55.8 kg) Height: 5' 3.5 (1.613 m) Physical Exam Constitutional: General: She is not in acute distress. Appearance: Normal appearance. She is not ill-appearing, toxic-appearing or diaphoretic. Cardiovascular: Rate and Rhythm: Normal rate. Pulses: Normal pulses. Abdominal: General: Abdomen is flat. Neurological: General: No focal deficit present. Mental Status: She is alert. Psychiatric: Mood and Affect: Mood normal. Assessment/Plan Assessment/Plan Diagnoses and all orders for this visit: Cervicogenic headache Obstructive hydrocephalus (CMS/HCC) (HCC) Elevated blood pressure reading Frequent falls Headache with dizziness: - Proceed with brain MRI scheduled next Saturday to evaluate headaches and dizziness. Advised against initiating new medications at this time given prior intolerance to gabapentin and fall risk. Will reassess after MRI and based on neurology input. - Risks and side effects: Discussed risk of dizziness with gabapentin and concern for falls; patient stopped medication after being advised. Hypertension: - Elevated blood pressures noted across visits (177 mmHg previously; 159/82 mmHg today; 172/87 mmHgat neurology). Treatment initiation deferred to avoid hypotension and worsening dizziness. - Check blood pressure daily or every other day between 10:00 and 11:00; record values. Nurse to call in 1 week to review home blood pressure readings. Follow- up planned in 4 months unless issues arise; treatment decisions to be made based on home readings and symptoms. - Risks and side effects: Discussed risk of hypotension leading to dizziness if antihypertensives lower blood pressure too much. This note was drafted using Ambient (AI) technology. 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) Irritable bowel syndrome with diarrhea Encounter for behavioral health screening Frequent falls Other hydrocephalus (HCC) Abnormality of left breast on screening mammogram Acute cystitis without hematuria Arthropathy Bilateral pseudophakia BMI 22.0-22.9, adult Breast calcification, left Cyst of pancreas Dyslipidemia Essential hypertension H/O Spinal surgery History of brain tumor Hydronephrosis with renal calculous obstruction Infection and inflammatory reaction due to indwelling urethral catheter, subsequent encounter Incarcerated right inguinal hernia Inguinal hernia Kidney stones Living alone Lumbar spinal stenosis Osteoarthritis of left knee Rhabdomyolysis SIRS (systemic inflammatory response syndrome) (CMS/HCC) (HCC) Small bowel obstruction (HCC) Urinary tract artificial opening care ([facility]) Urinary tract infection Fitting and adjustment of urinary device Acute metabolic encephalopathy Cerebral ventriculomegaly Pressure injury of sacral region, unstageable (HCC) Pressure injury of sacral region, stage 3 (HCC) [2] Allergies Allergen Reactions Penicillins Hives Penicillin G Hives [3] Current Outpatient Medications on File Prior to Visit Medication Sig Dispense Refill naproxen (Naprosyn) 375 MG tablet Take 1 tablet (375 mg) by mouth with breakfast and with evening meal. 20 tablet 0 tiZANidine (Zanaflex) 2 MG tablet Take 1 tablet (2 mg) by mouth at bedtime for 10 days. 10 tablet 0 No current facility-administered medications on file prior to visit. documented in this encounter Plan of Treatment Not on file documented as of this encounter Visit Diagnoses Diagnosis Cervicogenic headache- Primary Headache Obstructive hydrocephalus (CMS/HCC) (HCC) Obstructive hydrocephalus Elevated blood pressure reading Elevated blood pressure reading without diagnosis of hypertension Frequent falls documented in this encounter Additional Health Concerns Assessment Noted Time PHQ-9 Depression Total Score: 0 04/13/20 25 12:00 PM EDT documented as of this encounter Care Teams Campus Wellness Coordinator Relationship Specialty Start Date End Date Neville Mendez MD [address] [place] [id number] PCP - General Internal Medicine 02/26/25 documented as of this encounter
--- NOTE | ~2025-09-07 | MR_ITS ---
EXAMINATION: MR CERVICAL SPINE WITHOUT CONTRAST CLINICAL INFORMATION: R 26.9. Unspecified abnormalities of gait and mobility. COMPARISON: Correlated to CT cervical spine dated October 21, 2024. TECHNIQUE: MRI of the cervical spine was obtained using routine sequences without contrast. FINDINGS: Craniocervical junction is intact with a pannus formation in the periodontal C1 region. Normal position of the cerebellar tonsils. Prior occipital craniectomy. No bone marrow STIR signal abnormality. Incomplete fusion through the posterior aspect of the vertebral bodies from C3 to C5. There is a kyphotic deformity apex at C5-6 with the decreased intervertebral disc space and marginal osteophyte formation at C5-6 and 40% volume loss of the vertebral bodies. There is 3.5 mm retrolisthesis of C6-7. There is a focal, 2.5 mm maximum dimension and fusiform shape hyperintense T2 STIR signal abnormality within the midline of the cervical spinal cord at C4-5 level. There is dolichoectasia at C5-6 level. C2-3: No disc herniation. No neuroforamina stenosis. C3-4: No herniated disc. No neuroforamina stenosis. C4-5: No herniated disc. No neuroforamina stenosis. C5-6: Right sided disc osteophyte compresses formation resulting in ventral spinal cord deformity. There is CSF signal in the dorsal aspect of the thecal sac. No neuroforamina stenosis. C6-7: Grade 1 retrolisthesis resulting in CSF effacement of thecal sac and flattening spinal cord. No cord signal abnormality. Bilateral neuroforamina narrowing on a degenerative basis. C7-T1: No disc herniation. No neuroforamina stenosis. T1-2: No disc herniation. No neuroforamina stenosis. No prevertebral compartment hematoma, mass or fluid collection. Flow-void signal within the main vessels is normal. Left vertebral artery slightly dominant. MR/MR cervical spine wo con IMPRESSION: Incomplete fused C3 C5. Pseudoarthrosis/[place] deformity at C5-6 with grade 1 retrolisthesis C6-7 resulting in cord compression at C6-7. 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 Electronically signed by: Rocky Ulloa MD 09/07/2025 02:17 PM [facility]
--- OUTSIDE RECORDS SUMMARY | 2025-09-07 17:11 | XMS_ITS | Encounter Summary ---
Author Organization [employer] Address [address] [facility] [address] [place] [address] Care Team Providers Care Animal Chiropractor Name Role Phone Neville Mendez MD Primary Care Provider [phone] Encounter Details Date Type Department Care Team (Latest Contact Info) Description 09/02/2025 Travel Social History Tobacco Use Types Packs/Day Years Used Date Smoking Tobacco: Unknown Depression Answer Date Recorded Patient Health Questionnaire-9 Score 0 04/13/2025 Patient Health Questionnaire-9 Score 0 04/13/2025 Last PHQ-9: Questionnaire Data Not on file 0 04/13/2025 Housing Stability Answer Date Recorded What is your housing situation today? I have tsefano mahamed 02/26/[address] you li [...] PM EDT documented as of this encounter Plan of Treatment Not on file documented as of this encounter Visit Diagnoses Not on filedocumented in this encounter Additional Health Concerns Assessment Noted Time PHQ-9 Depression Total Score: 0 04/13/20 12:00 PM EDT documented as of this encounter Care Teams Animal Chiropractor Relationship Specialty Start Date End Date Neville Mendez MD [address] [place] [id number] PCP - General Internal Medicine 02/26/25 documented as of this encounter
--- OUTSIDE RECORDS SUMMARY | 2025-09-07 17:11 | XMS_ITS | Encounter Summary ---
Author Organization [employer] Address [address] [facility] [address] [place] [address] Care Team Providers Care Secondary School Teacher Librarian Name Role Phone Neville Mendez MD Primary Care Provider [phone] Encounter Details Date Type Department Care Team ([facility] Contact Info) Description 09/07/2025 Orders Only [facility] External Provider, [facility] Social History Tobacco Use Types Packs/Day Years [...] Procedure Name Priority Date/Time Associated Diagnosis Comments MR CERVICAL SPINE WO CONTRAST Routine 09/07/2025 1:32 PM EST documented in this encounter Results * MR Cervical Spine w/o Contrast (09/07/2025 1:32 PM EST) Anatomical Region Laterality Modality Spine, C-spine Magnetic Resonan ce 09/07/2025 1:32 PM EST Narrative 09/07/2025 2:20 PM EST [place] [id number] Magnetic Resonance Report Signed Patient: Sylvia Jimenez MR#: [id number] : 1945 Acct:[id number] Age/Sex: 79 / F ADM Date: 09/07/25 Loc: HO.MRI Attending Dr: Aubree Dillard CNP Ordering Physician: Aubree Dillard CNP Date of Service: 09/07/25 Procedure(s): MR cervical spine wo con Accession Number(s): [id number] cc: Neville Mendez MD; Aubree Dillard CNP Reason for Exam: R26.9 - Unspecified abnormalities of gait and mobility EXAMINATION: MR CERVICAL SPINE WITHOUT CONTRAST CLINICAL INFORMATION: R 26.9. Unspecified abnormalities of gait and mobility. COMPARISON: Correlated to CT cervical spine dated 2024. TECHNIQUE: MRI of the cervical spine was obtained using routine sequences without contrast. FINDINGS: Craniocervical junction is intact with a pannus formation in the periodontal C1 region. Normal position of the cerebellar tonsils. Prior occipital craniectomy. No bone marrow STIR signal abnormality. Incomplete fusion through the posterior aspect of the vertebral bodies from C3 to C5. There is a kyphotic deformity apex at C5-6 with the decreased intervertebral disc space and marginal osteophyte formation at C5-6 and 40% volume loss of the vertebral bodies. There is 3.5 mm retrolisthesis of C6-7. There is a focal, 2.5 mm maximum dimension and fusiform shape hyperintense T2 STIR signal abnormality within the midline of the cervical spinal cord at C4-5 level. There is dolichoectasia at C5-6 level. C2-3: No disc herniation. No neuroforamina stenosis. C3-4: No herniated disc. No neuroforamina stenosis. C4-5: No herniated disc. No neuroforamina stenosis. C5-6: Right sided disc osteophyte compresses formation resulting in ventral spinal cord deformity. There is CSF signal in the dorsal aspect of the thecal sac. No neuroforamina stenosis. C6-7: Grade 1 retrolisthesis resulting in CSF effacement of thecal sac and flattening spinal cord. No cord signal abnormality. Bilateral neuroforamina narrowing on a degenerative basis. C7-T1: No disc herniation. No neuroforamina stenosis. T1-2: No disc herniation. No neuroforamina stenosis. No prevertebral compartment hematoma, mass or fluid collection. Flow-void signal within the main vessels is normal. Left vertebral artery slightly dominant. MR/MR cervical spine wo con IMPRESSION: Incomplete fused C3 C5. 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 Electronically signed by: Rocky Ulloa MD 09/07/2025 02:17 PM [facility] Dictated By: Rocky Gibson MD Signed By: <Electronically signed by Rocky Hendricks MD in OV> 09/07/25 1417 DD/ 1332 TD/TT: 09/07/25 1400 Banking Services Clerk: Procedure Note Donotuseinterpreter, Image - 09/07/[address] [address] Magnetic Resonance Report Signed Patient: Sylvia Jimenez AMR#: [id number] : 5Acct:[id number] Age/Sex: 79 / FADM Date: 09/07/25 Loc: HO.MRI Attending Dr: Aubree Dillard CNP Ordering Physician: Aubree Dillard CNP Date of Service: 09/07/25 Procedure(s): MR cervical spine wo con Accession Number(s): [id number] cc: Neville Mendez MD; Aubree Dillard CNP Reason for Exam: R26.9 - Unspecified abnormalities of gait and mobility EXAMINATION: MR CERVICAL SPINE WITHOUT CONTRAST CLINICAL INFORMATION: R 26.9. Unspecified abnormalities of gait and mobility. COMPARISON: Correlated to CT cervical spine dated 2024. TECHNIQUE: MRI of the cervical spine was obtained using routine sequences without contrast. FINDINGS: Craniocervical junction is intact with a pannus formation in the periodontal C1 region. Normal position of the cerebellar tonsils. Prior occipital craniectomy. No bone marrow STIR signal abnormality. Incomplete fusion through the posterior aspect of the vertebral bodies from C3 to C5. There is a kyphotic deformity apex at C5-6 with the decreased intervertebral disc space and marginal osteophyte formation at C5-6 and 40% volume loss of the vertebral bodies. There is 3.5 mm retrolisthesis of C6-7. There is a focal, 2.5 mm maximum dimension and fusiform shape hyperintense T2 STIR signal abnormality within the midline of the cervical spinal cord at C4-5 level. There is dolichoectasia at C5-6 level. C2-3: No disc herniation. No neuroforamina stenosis. C3-4: No herniated disc. No neuroforamina stenosis. C4-5: No herniated disc. No neuroforamina stenosis. C5-6: Right sided disc osteophyte compresses formation resulting in ventral spinal cord deformity. There is CSF signal in the dorsal aspect of the thecal sac. No neuroforamina stenosis. C6-7: Grade 1 retrolisthesis resulting in CSF effacement of thecal sac and flattening spinal cord. No cord signal abnormality. Bilateral neuroforamina narrowing on a degenerative basis. C7-T1: No disc herniation. No neuroforamina stenosis. T1-2: No disc herniation. No neuroforamina stenosis. No prevertebral compartment hematoma, mass or fluid collection. Flow-void signal within the main vessels is normal. Left vertebral artery slightly dominant. MR/MR cervical spine wo con IMPRESSION: Incomplete fused C3 C5. 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 Electronically signed by: Rocky Ulloa MD 09/07/2025 02:17 PM EST RP Dictated By: Rocky Gibson MD Signed By: <Electronically signed by Rocky Hendricks MDin OV> 09/07/25 1417 DD/ 1332 TD/TT: 09/07/25 1400 Banking Services Clerk: [facility] External Provider IMG MRI PROCEDURES Edited Result - Final documented in this encounter Visit Diagnoses Not on filedocumented in this encounter Additional Health Concerns Assessment Noted Time PHQ-9 Depression Total Score: 0 04/13/20 12:00 PM EDT documented as of this encounter Care Teams Secondary School Teacher Librarian Relationship Specialty Start Date End Date Neville Mendez MD [address] [place] [id number] PCP - General Internal Medicine 02/26/25 documented as of this encounter
--- OUTSIDE RECORDS SUMMARY | 2025-09-07 17:11 | XMS_ITS | Clinical Summary ---
Author Organization [address] Address [address] [place] [address] Phone Care Team Providers Care Admissions Director Name Role Phone Unavailable Primary Care Provider [...] Encounters Date Type Department Care Team Description 07/27/2025 11:00 AM EST Lab Draw Station - [address] [place] [address] Decubitus ulcer, unstageable with infection ([facility]/HCC V24, [facility] V28) 07/27/2025 10:30 AM EST Office Visit Infectious Disease - [address] [place] [address] Alon Tsai MD Decubitus ulcer, unstageable with infection (CMS/HCC V24, CMS/HCC V28) (Primary Dx) 07/21/2025 10:50 AM EDT Lab Draw Station - [address] [place] [address] Unstageable pressure ulcer of elbow ([facility] V24, [facility] V28) (Primary Dx); Face, neck, and scalp except eye, blister, infected; Encounter for screening for cardiovascular disorders from Last 3 Months Immunizations Immunization Administration Dates Next Due Influenza [...] IOL IMPLANT; Surgeon: Ravi Maki MD; Location: [facility]; Service: Ophthalmology; Laterality: Left; CATARACT EXTRACTION W/ INTRAOCULAR LENS IMPLANT 02/19/2017 Right PROCEDURE:CATARACT EXTRACTION W/ INTRAOCULAR LENS IMPLANT;COMMENT:Procedure: EXTRACTION CATARACT WITH IOL IMPLANT; Surgeon: Ravi Maki MD; Location: [facility]; Service: Ophthalmology; Laterality: Right; LUMBAR FUSION 07/26/2016 Bilateral PROCEDURE:LUMBAR FUSION;COMMENT:Procedure: L4-5 POSTERIOR LUMBAR SPINE FUSION; Surgeon: Martín Pang MD; Location: [facility] MAIN OPERATING ROOM; Service: Spine; Laterality: Bilateral; LUMBAR LAMINECTOMY 07/26/2016 Right PROCEDURE:LUMBAR LAMINECTOMY;COMMENT:Procedure : RIGHT L3-4L4-5 DECOMPRESSION POSTERIOR LUMBAR; Surgeon: Martín Pang MD; Location: [facility] MAIN OPERATING ROOM; Service: Spine; Laterality: Right; LUMBAR EPIDURAL INJECTION 03/19/2016 Right PROCEDURE:LUMBAR EPIDURAL INJECTION;COMMENT:Procedure: Right L4-5 transforaminal SUREKHA; Surgeon: Kandace Ochoa MD; Location: [facility]; Service: Rehab Medicine; Laterality: Right; LUMBAR EPIDURAL INJECTION 02/02/2016 N/A PROCEDURE:LUMBAR EPIDURAL INJECTION;COMMENT:Procedure: INJECTION ANESTHETIC AGENT LUMBAR; Surgeon: Kandace Ochoa MD; Location: [facility]; Service: Rehab Medicine; Laterality: N/A; UPPER GASTROINTESTINAL ENDOSCOPY PROCEDURE:UPPER GASTROINTESTINAL ENDOSCOPY KNEE ARTHROPLASTY 08/27/2022 Left PROCEDURE:KNEE ARTHROPLASTY;COMMENT:Dr. 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, [facility]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[facility]);COMMENT:RT brain surgery Osteoarthritis DX:Osteoarthriti s COVID-19 vaccine [...] not to disclose 2023 3:07 PM EDT Last Filed Vital Signs Vital Sign Reading Time Taken Comments Blood Pressure 160/92 07/27/2025 10:30 AM EST Pulse 68 07/27/2025 10:30 AM EST Temperature 36.8 C (98.2 F) 07/27/2025 10:30 AM EST Respiratory Rate 16 11/17/2024 12:54 PM EST Oxygen Saturation 96% 07/27/2025 10:30 AM EST Inhaled Oxygen Concentration - - Weight 54.9 kg (121 lb) 07/27/2025 10:30 AM EST Height 161.3 cm (5' 3.5 ) 07/27/2025 10:30 AM ES T Body Mass Index 21.1 07/27/2025 10:30 AM EST Plan of Treatment Upcoming Encounters Date Type Department Care Team (Late st Contact Info) Description 01/25/2026 10:30 AM EDT Office Visit Infectious Disease - [address] [place] [address] Alon Tsai MD [address] [place] [address] Health Maintenance Due Date Last Done Comments DTaP,Tdap,and Td Vaccines (1 - Tdap) 1963 Zoster Vaccines (1 of 2) 1994 RSV Immunization Adult Patients (1 - 1-dose 75+ series) 2019 Cholesterol Screening (Lipid Panel) 09/02/2022 Medicare Annual Wellness Visit 09/02/2022 Social Influencers of Health Screening 09/02/2022 Falls Risk Assessment 11/03/2025 11/03/2024 Hypertension/CHF/CAD Annual BMP Blood Test 01/07/2026 01/07/2025, 06/24/2024, 06/24/2024, Additional history exists COVID-19 Vaccine ( season) 2026 07/15/2025, 07/17/2023, 01/03/2022, Additional history exists Osteoporosis Screening (Bone Density Screening) 03/27/2032 03/27/2022 Pneumococcal Vaccine: 50+ Years Completed 06/10/2019, 06/03/2018 Depression Screening Completed 10/20/2024 Influenza Vaccine Completed 07/15/2025, , 06/26/2022, Additional history exists HIB Vaccines Aged Out No longer eligi [...] Resendiz RN Medical Devices Implanted Type Area Senior Foreman Device Identifier Shelf Expiration Date Model / Serial / Lot Cement Bone Surg Simplex Rad[facility]q [facility] [id number] Implanted:Qty: 1 on 08/27/2022 by Rocco Wu MD Left: Knee [employer] [id number] 08/22/2023 6191-1-010 / / [id number] Cement Bone Surg Simplex Radiopq Stry-Howm [id number] Implanted:Qty: 1 on 08/27/2022 by Rocco Wu MD Left: Knee [employer] [id number] 08/22/2023 6191-1-010 / / [id number] Insert Tib Triathlon Baseplate Stry-Howm [id number] Implanted:Qty: 1 on 08/27/2022 by Rocco Wu MD Left: Knee [employer] [id number] 07/02/2027 5521-B-300 / / [id number] Tibial Bearing Insert Cs 10mm Stry-How [id number] Implanted:Qty: 1 on 08/27/2022 by Rocco Wu MD Left: Knee [employer] [id number] 05/03/2027 5531-G-310 -[id number] / / [id number] Knee Compon Fem Cmnt Sz3 L Stry-How [id number] Implanted:Qty: 1 on 08/27/2022 by Rocco Wu MD Left: Knee [employer] [id number] 06/14/2027 5510-F-301 / / [id number] Procedures Procedure Name Priority Date/Time Associated Diagnosis Comments C-REACTIVE PROTEIN Routine 07/27/2025 10 :53 AM EST Decubitus ulcer, unstageable with infection (CMS/HCC V24, CMS/HCC V28) C REACTIVE PROTEIN, HIGH SENSITIVITY Routine 07/21/2025 10:59 AM EDT Unstageable pressure ulcer of elbow (CMS/HCC V24, CMS/HCC V28) Face, neck, and scalp except eye, blister, infected Encounter for screening for cardiovascular disorders COMPREHENSIVE METABOLIC PANEL Routine 01/07/2025 11:21 AM EDT Decubitus ulcer, unstageable (CMS/HCC V24, CMS/HCC V28) BONE DENSITY STUDY Routine 03/27/2022 1: 38 PM EDT Asymptomatic menopausal state Encounter for screening for osteoporosis from Last 3 Months or Most Recently Relevant to Health Maintenance Results * C-reactive protein (07/27/2025 10:53 AM EST) Pathologist [facility] C-Reactive Protein <0.5 <0.5 mg/dL LAB CHEMISTRY METHOD 07/28/2025 7:37 PM EST [facility] Blood Venous blood specimen / Unknown Venipuncture / Unknown 07/27/2025 10:53 AM EST 07/27/2025 10:53 AM EST us Alon Tsai MD LAB BLOOD ORDERABLES Final Resu lt Performing Organization Address City/[facility]/ZIP Co de Phone Number [facility] [place] Reg. #: [id number] [address] [place] [address], * C reactive protein, high sensitivity (07/21/2025 10:59 AM EDT) [facility] CRP, High Sensitivity 2.99 mg/L LAB CHEMISTRY METHOD 07/21/2025 3:34 PM EDT [facility] Comment: Cardio CRP Relative Risk Categories Low <1.0 mg/L Average 1.0 - 3.0 mg/L High >3.0 mg/L Levels >10.0 mg/L should be ignored and repeated when the patient is stable and infection or inflammation is ruled out. HRT (estrogens) consistently increase cardio CRP levels. Risk estimates for women on HRT may need to be calibrated downward. Blood Venous blood specimen / Unknown Venipuncture / Unknown 07/21/2025 10:59 AM EDT 07/21/2025 12:40 PM EDT us Alon Tsai MD LAB BLOOD ORDERABLES Final Resu lt Performing Organization Address City/[facility]/ZIP Co de Phone Number [facility] [address] [place] [address], [place] [phone] * (ABNORMAL) Comprehensive metabolic panel (01/07/2025 11:21 AM EDT) [facility] Signature Sodium 141 133 - 145 mmol/L LAB CHEMISTRY METHOD 01/07/2025 2:05 PM [facility] Potassium 4.1 3.5 - 5.5 mmol/L LAB CHEMISTRY METHOD 01/07/2025 2:05 PM [facility] Chloride 105 96 - 110 mmol/L LAB CHEMISTRY METHOD 01/07/2025 2:05 PM [facility] CO2 26 21 - 32 mmol/L LAB CHEMISTRY METHOD 01/07/2025 2:05 PM [facility] Anion Gap 10 3 - 11 LAB CHEMISTRY METHOD 01/07/2025 2:05 PM [facility] Glucose 112(H) 70 - 100 mg/dL LAB CHEMISTRY METHOD 01/07/2025 2:05 PM [facility] BUN 19 5 - 25 mg/dL LAB CHEMISTRY METHOD 01/07/2025 2:05 PM [facility] Creatinine 0.63 0.50 - 1.10 mg/dL LAB CHEMISTRY METHOD 01/07/2025 2:05 PM [facility] eGFR 90 >=60 mL/min/1. 73m2 LAB CHEMISTRY METHOD 01/07/2025 2:05 PM [facility] Comment:Calculation based on the Chronic Kidney Disease Epidemiology Collaboration (CKD-EPI) equation refit without adjustment for race. BUN/Creatinine Ratio 30.2 LAB CHEMISTRY METHOD 01/07/2025 2:05 PM [facility] Calcium 10.2 8.5 - 10.5 mg/dL LAB CHEMISTRY METHOD 01/07/2025 2:05 PM [facility] AST (SGOT) 25 10 - 42 unit/L LAB CHEMISTRY METHOD 01/07/2025 2:05 PM EDT [facility] ALT (SGPT) 31 10 - 60 unit/L LAB CHEMISTRY METHOD 01/07/2025 2:05 PM EDT [facility] Alkaline Phosphatase 82 42 - 121 unit/L LAB CHEMISTRY METHOD 01/07/2025 2:05 PM EDT [facility] Total Protein 7.2 6.0 - 8.0 g/dL LAB CHEMISTRY METHOD 01/07/2025 2:05 PM EDT [facility] Albumin 3.8 3.2 - 5.0 g/dL LAB CHEMISTRY METHOD 01/07/2025 2:05 PM EDT [facility] Total Bilirubin 0.5 0.0 - 1.4 mg/dL LAB CHEMISTRY METHOD 01/07/2025 2:05 PM EDT [facility] Blood Venous blood specimen / Unknown Venipuncture / Unknown 01/07/2025 11:21 AM EDT 01/07/2025 12:34 PM EDT us Chantelle PIERCE LAB BLOOD ORDERABLES Magali l Result [facility] [address] [place] [address], * BONE DENSITY STUDY (03/27/2022 1:38 PM EDT) Anatomical Region Laterality Modality Bone Densitometr y 03/19/2022 12:0 3 PM EDT Narrative 03/28/2022 11:56 AM EDT Bone density study Indication and risk factors: Postmenopausal female. Screening for osteoporosis. Study acquired on a eVoter densitometer. Imaging of the lumbar spine and [...] on 03/28/2022 11:56 AM. Workstation Name - [employer] Procedure Note Bárbara Weller MD - 09/14/2022 Bone density study Indication and risk factors: Postmenopausal female. Screening forosteoporosis. Study acquired on a eVoter densitometer. Imaging of thelumbar spine and hip [...] Weller on 03/28/2022 11:56 AM.Workstation Name - [employer] Janki Samaniego MD IM DXA PROCEDURES Final R esult from Last 3 Months or Most Recently Relevant to Health Maintenance Additional Health Concerns Active Problems Noted Date Diagnosed Date Impaired Tissue 10/20/2024 Education needed on impact of smoking on wound 0 10/20/2024 Education needed related to ulceration/compromised skin integrity. 10/20/[address] [facility] [place] [place] [address] [employer] MEDICARE Advance Directives Documents on File Type Date Recorded Patient Alternative Financing Specialist Expl anation Health Care Decision (hx) 06/25/2024 RINKU TINSLEY DIRECTIVE
--- OUTSIDE RECORDS SUMMARY | 2025-09-07 17:11 | XMS_ITS | Encounter Summary ---
Author Organization [employer] Address [address] [place] [address] [address] [place] [address] Care Team Providers Care Filter Press Tender Name Role Phone Neville Mendez MD Primary Care Provider [phone] Encounter Details Date Type Department Care Team (Late st Contact Info) Description 06/01/2025 Orders Only [facility] [address] [place], [place] [phone] Neville Mendez MD [address] [place] [address] Frequent falls (Primary Dx); Other hydrocephalus (CMS/HCC) Social History Tobacco Use Types Packs/Day [...] as of this encounter Visit Diagnoses Diagnosis Frequent falls- Primary Other hydrocephalus (HCC) documented in this encounter Additional Health Concerns Assessment Noted Time PHQ-9 Depression Total Score: 0 04/13/20 12:00 PM EDT documented as of this encounter Care Teams Filter Press Tender Relationship Specialty Start Date End Date Neville Mendez MD [address] [place] [address] PCP - General Internal Medicine 02/26/25 documented as of this encounter
--- OUTSIDE RECORDS SUMMARY | 2025-09-07 17:11 | XMS_ITS | Clinical Summary ---
Author Organization [employer] Address [address] [facility] 7[address] [place] [address] Care Team Providers Care Dispatcher Tugboat Name Role Phone Neville Mendez MD Primary Care Provider [phone]- [phone] Allergies Active Allergy Reactions Criticality Noted Date Comments Penicillin G Hives 05/31/2025 Penicillins Hives Medium 01/31/2016 Medications * This document contains information received [...] Active Problems Problem Noted Date Diagnosed Date Incarcerated right inguinal hernia 09/01/2025 Kidney stones 09/01/2025 Small bowel obstruction 09/01/2025 Urinary tract infection 09/01/2025 Pressure injury of sacral region, stage 3 2024 Frequent falls 06/01/2025 Other hydrocephalus 06/01/2025 Encounter for behavioral health screening 2024 Irritable bowel syndrome with diarrhea Osteomyelitis of sacrum (CMS/HCC) 08/14/2024 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) 07/31/2024 Acute cystitis without hematuria 06/21/2024 Cyst of pancreas 06/21/2024 Cerebral ventriculomegaly 06/21/2024 Rhabdomyolysis 06/20/2024 SIRS (systemic inflammatory response syndrome) ( CMS/HCC) 06/20/2024 Acute metabolic encephalopathy 06/20/2024 Pressure injury of sacral region, unstageable Inguinal hernia 05/29/2024 Arthropathy 01/08/2024 Hydronephrosis with renal calculous obstruction 01/08/2024 Infection and inflammatory r eaction due to indwelling urethral catheter, subsequent encounter 01/08/2024 Urinary tract artificial opening care 01/08/2024 Fitting and adjustment of urinary device 024 Abnormality of left breast on screening mammogra m 01/03/2021 Breast calcification, left 01/03/2021 H/O Spinal surgery 05/28/2019 Overview (09/01/2025): 2015 DR. Blakely History of brain tumor 05/28/2019 Overview (09/01/2025): When she was a teenager Osteoarthritis of left knee 05/28/2019 Living alone 11/20/2017 Bilateral pseudophakia 07/17/2017 BMI 22.0-22.9, adult 07/17/2017 Dyslipidemia 01/02/2017 Essential hypertension 01/02/2017 Lumbar spinal stenosis 03/27/2016 Encounters Date Type Department Care Team Description 09/07/2025 Orders Only [facility] External Provider, [facility] 09/02/2025 1:00 PM EST Office Visit [facility] [address] [place] [address] Neville Mendez MD Cervicogenic headache (Primary Dx); Obstructive hydrocephalus (CMS/HCC) (HCC); Elevated blood pressure reading; Frequent falls 09/02/2025 Travel 09/01/2025 Telephone [facility] [address] [place] [address] Neville Mendez MD chart prep 06/14/2025 Telephone [facility] [address] [place] [address] Neville Mendez MD from Last 3 Months Immunizations Immunization Administration Dates Next Due Influenza High-dose Quadrivalent Preservative Fr ee 07/17/2023,06/13/2021 Influenza Injectable Quadriv alant Preservative Free IIV4 MDCK 06/13/2021 Influenza Quadrivalent Adjuvanted 06/26/2022,06/2020 Influenza, IIV3, injectable 06/28/2016 Influenza, Unspecified 06/10/2019,06/28/2016 Pneumococcal Conjugate PCV 13 06/03/2018 Pneumococcal Polysaccharide PPSV23 06/10/2019 Social History Tobacco Use Types Packs/Day Years [...] Pulse 99 09/02/2025 12:59 PM EST Temperature 36.5 C (97.7 F) 02/26/2025 1:43 PM EDT Respiratory Rate 20 09/02/2025 12:59 PM EST Oxygen Saturation 92% 09/02/2025 12:59 PM EST Inhaled Oxygen Concentration - - Weight 55.8 kg (123 lb) 09/02/2025 12:59 PM EST Height 161.3 cm (5' 3.5 ) 09/02/2025 12:59 PM ES T Body Mass Index 21.45 09/02/2025 12:59 PM EST Plan of Treatment Health Maintenance [...] 02/26/2026 02/26/2025 Depression Screening 04/13/2026 04/13/2025, 04/13/20 Tobacco Screening 05/31/2026 05/31/2025 Pneumococcal Vaccine: 50+ [...] WO CONTRAST Routine 09/07/2025 1:32 PM EST from Last 3 Months Results * MR Cervical Spine w/o Contrast (09/07/2025 1:32 PM EST) Anatomical Region Laterality Modality Spine, C-spine Magnetic Resonan ce 09/07/2025 1:32 PM EST Narrative 09/07/2025 2:20 PM EST [address] [address] Magnetic Resonance Report Signed Patient: Sylvia Jimenez MR#: [id number] : 1945 Acct:[id number] Age/Sex: 79 / F ADM Date: 09/07/25 Loc: HO.MRI Attending Dr: Aubree Dillard CNP Ordering Physician: Aubree Dillard CNP Date of Service: 09/07/25 Procedure(s): MR cervical spine wo con Accession Number(s): [id number] cc: Neville Mendez MD; Aubree Dillard CNP [...] wo con IMPRESSION: Incomplete fused C3 C5. Pseudoarthrosis/[place] deformity at C5-6 with grade 1 retrolisthesis C6-7 resulting in cord compression at C6-7. 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 Electronically signed by: Rocky Ulloa MD 09/07/2025 02:17 PM [facility] Dictated By: Rocky Gibson MD Signed By: <Electronically signed by Rocky Hendricks MD in OV> 09/07/25 1417 DD/ 1332 TD/TT: 09/07/25 1400 Merchandise Appraiser: Procedure Note Donotuseinterpreter, Image - 09/07/[address] [address] Magnetic Resonance Report Signed Patient: Sylvia Jimenez AMR#: [id number] : 5Acct:[id number] Age/Sex: 79 / FADM Date: 09/07/25 Loc: HO.MRI Attending Dr: Aubree Bechthold FLAME CUTTING MACHINE OPERATOR HELPER Ordering Physician: Aubree Dillard CNP Date of Service: 09/07/25 Procedure(s): MR cervical spine wo con Accession Number(s): [id number] cc: Neville Mendez MD; Aubree Dillard CNP [...] wo con IMPRESSION: Incomplete fused C3 C5. Pseudoarthrosis/[place] deformity at C5-6 with grade 1 retrolisthesis C6-7 resulting in cord compression at C6-7. 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 Electronically signed by: Rocky Ulloa MD 09/07/2025 02:17 PM EST Dictated By: Rocky Gibson MD Signed By: <Electronically signed by Rocky Hendricks MDin OV> 09/07/25 1417 DD/ 1332 TD/TT: 09/07/25 1400 Merchandise Appraiser: [facility] External Provider IMG MRI PROCEDURES Edited Result - Final from Last 3 Months Insurance [facility] Care Teams Dispatcher Tugboat Relationship Specialty Start Date End Date Neville Mendez MD [address] [place] [address] PCP - General Internal Medicine 02/26/25
== END 2025-09-07 13:06 | disposition home or self-care (01) ==
LOC: HO.MRI 13:05
PROVIDERS: PCP Internal Medicine; Visit Provider Nurse Practitioner
DX: R26.89 Other abnormalities of gait and mobility (principal)
CPT/HCPCS: 72141

== ENCOUNTER → 2025-09-07 13:05 | Outpatient (BNV) | payer MEDICARE, SELFPAY | PROVIDERS: PCP Internal Medicine; Visit Provider Radiology Diagnostic Radiology | DX: R26.9 Unspecified abnormalities of gait and mobility (principal) | CPT/HCPCS: 72141 ==

== ENCOUNTER 2025-09-10 13:24 | Outpatient (AMB) | payer MEDICARE, SELFPAY ==
--- NOTE | 2025-09-10 13:28 | MHC.OFFVIS ---
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 She is here today for a follow-up evaluation of headaches that began after a recent fall. Over the course of the last year, she has had 3 falls. Her 1st fall was in May of 2024 and more recent falls earlier this year. She tells me that each of these falls which occurred within the last calendar year or so were in the setting of urinary tract infection. For the past 3 years she has been using a walker which she began using after a knee surgery. She has been doing well without any falls up until this year. Her most recent fall was in September of 2024 when she experienced a head strike on the floor after which she began having left-sided headaches. Her head pain is to the left occipital area and feels tender to touch. She feels that the pain is very localized and superficial described as a dull pain but fluctuating in intensity. Her pain can reach a 6/10 but has caused her some hesitancy to go out and be social at times especially when headaches are more intense. Aside from this, headaches are generally not impacting her ability to perform her ADLs and life. Her son however does have some concerns that she has tried away from going to events because of her headaches in the recent past. Prior to these headaches, she had no significant history of headaches. Most recent CT scan does show ventriculomegaly. Unfortunately, we do not have prior scans for comparison though she does note she had some scans performed at [facility]. She is unsure if she had enlarged ventricles in the past. She does have some mild urinary retention at times but no overt urinary incontinence or change in urinary patterns over the course of the last year. She and her son report some mild memory changes but no significant or rapid changes in her cognition/memory recently. In terms of gait, she feels that her gait is relatively back to its baseline since after her knee surgery 3 years ago. At the time of her last visit, review of CT scans by myself and Dr. Guevara did raise concern for NPH it is unclear she has had ventriculomegaly especially given her history. This may not be new finding. Clinically, she did not fit a clear picture of NPH and therefore plan was to evaluate for other causes of imbalance including C-spine pathology. 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 He tells me today that her headaches have continued same has prior. Unfortunately, the gabapentin caused her worsening of imbalance and we had to discontinue. Other related background information: Sleep:Reports that she sleeps well and generally feels rested Hydration: About 24 oz per day Caffeine intake:None Alcohol intake: 1x per week Substance use: None Tobacco use:None Last eye exam: Within the last year History of head injury:Yes, see HPI Past medication trials: Tylenol some improvement Prior workup: CT brain 09/2024 IMPRESSION:No acute intracranial process seen. Significant distended lateral ventricles, disproportionate to the third and fourth ventricle. Evaluate for obstructive hydrocephalus at the level of aqueduct or foramina of [place]. 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 Mild loss of C6 vertebral height. Severe de PFSH Medical History (Updated 09/10/25 @ 15:08 by Aubree Dillard CNP) Cervicogenic headache Incarcerated right inguinal hernia Sacral decubitus ulcer, stage III Spinal stenosis Kidney stones Cystic mass of pancreas Surgical History H/O lithotripsy H/O brain surgery Total knee replacement status Previous back surgery Social History Household Members: Other Housing: Assisted Living Facility Housing Other:: Independent living/ [facility] Are you a primary group care worker to a significant other at home: No Do you presently have visiting nurse or other home services: No Patient Tobacco Use Status: Never used Tobacco service: No Review of Systems Const All systems reviewed & are unremarkable except as noted in HPI and below Physical Exam Vital Signs: Last Vital Signs Pulse 101 H 09/10/25 13:35 Resp 16 09/10/25 13:35 BP 170/87 H 09/10/25 13:35 Pulse Ox 97 09/10/25 13:35 Oxygen Delivery Method Room Air 09/10/25 13:35 BMI result Body Mass Index 21.6 Const General: cooperative and comfortable Orientation/consciousness: oriented to person, oriented to place and oriented to time Neuro General: oriented to person, oriented to place and oriented to time Cranial nerves: Yes CN's II-XII intact bilaterally Cognition (Neuro): normal cognition Gait exam (Neuro): Ataxic gait present, Assistive device used (Walker) and Other gait observations present (Some spasticity and contractures. Gait also appears slightly magnetic) Motor exam (neuro): no tremor noted Deep tendon reflexes (DTR's): Right triceps reflex intensity grade: 2+, Left triceps reflex intensity grade: 2+, Rt Biceps (C5, C6): 2+, Left biceps reflex intensity grade: 2+, Right brachioradialis reflex intensity grade: 2+, Left brachioradialis reflex intensity grade: 2+, Right patellar reflex intensity grade: 3+, Left patellar reflex intensity grade: 3+, Right ankle reflex intensity grade: 2+ and Left ankle reflex intensity grade: 2+ Psych Appearance: grossly normal Mental Status: mental status grossly normal Affect: normal affect Attitude: cooperative Thought process: Normal thought process present Thought content: Normal thought content present Insight: Good insight present (Psych) Judgement: Good judgement present (Psych) Assessment & Plan Assessment & Plan (1) Occipital neuralgia of left side: Code(s): M54.81 - Occipital neuralgia Category: Medical (2) Trigger point of shoulder region: Code(s): M25.519 - Pain in unspecified shoulder Category: Medical (3) Cervical cord compression with myelopathy: Code(s): G95.20 - Unspecified cord compression Category: Medical Plan Sylvia is an 79-year-old female patient with a 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 She is here today for a follow-up regarding imbalance and ongoing headaches. She does have some cervical spine abnormalities resulting in cord compression and likely myelopathic signal change. Her imbalance has been worse than prior. 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 This may have resulted in ventriculomegaly however there is unclear if her ventriculomegaly is chronic or new. She however does not fit clear criteria at this time for NPH and therefore there was no indication to perform a large volume spinal tap at this time. More likely, is her spinal cord compression causing her imbalance. Headaches may be musculoskeletal. I will try topical agents for head pain control and in the meantime send her to the spine center for evaluation of possible surgical intervention. -referral to the spine center -topical diclofenac and lidocaine for head pain management Orders: Referrals Neuro Spine Referral G95.20 - Unspecified cord compression Medications: New diclofenac sodium 3% (Solaraze) 1 appl topical BID PRN 100 grams 3RF pain (scale score 4-6) lidocaine 5% 1 appl topical BID PRN 30 grams 3RF pain Coding Level of Care Code Est Pt Level 4 (40851) Diagnoses Occipital neuralgia of left side M54.81 Trigger point of shoulder region M25.519 Cervical cord compression with myelopathy G95.20
[2025-09-10 13:35] VITALS: BP 170/87; PULSE 101; RESP 16; O2SAT 97; BMI 21.6
--- OUTSIDE RECORDS SUMMARY | 2025-09-10 15:09 | XMS_ITS | Encounter Summary ---
Author Organization [employer] Address [address] [facility] [address] [place] [address] Care Team Providers Care Magnetic Testing Technician Name Role Phone Neville Mendez MD Primary Care Provider [phone] Encounter Details Date Type Department Care Team ([facility] Contact Info) Description 09/07/2025 Orders Only [facility] External Provider, [facility] Social History Tobacco Use Types Packs/Day Years [...] PM EST Narrative 09/07/2025 2:20 PM EST [place] [id number] Magnetic Resonance Report Signed Patient: Sylvia Jimenez MR#: [id number] : 1945 Acct:[id number] Age/Sex: 79 / F ADM Date: 09/07/25 Loc: HO.MRI Attending Dr: Aubree Dillard CNP Ordering Physician: Aubree Dilladr CNP Date of Service: 09/07/25 Procedure(s): MR cervical spine wo con Accession Number(s): [id number] cc: Neville Mendez MD; Aubree Dillard CNP [...] wo con IMPRESSION: 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 Electronically signed by: Rocky Ulloa MD 09/07/2025 02:17 PM [facility] Dictated By: Rocky Gibson MD Signed By: <Electronically signed by Rocky Hendricks MD in OV> 09/07/25 1417 DD/ 1332 TD/TT: 09/07/25 1400 Account Liaison: Procedure Note Donotuseinterpreter, Image - 09/07/[address] [address] Magnetic Resonance Report Signed Patient: Sylvia Jimenez AMR#: [id number] : 5Acct:[id number] Age/Sex: 79 / FADM Date: 09/07/25 Loc: HO.MRI Attending Dr: Aubree Dillard CNP Ordering Physician: Aubree Dillard CNP Date of Service: 09/07/25 Procedure(s): MR cervical spine wo con Accession Number(s): [id number] cc: Neville Mendez MD; Aubree Dillard CNP [...] wo con IMPRESSION: 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 Electronically signed by: Rocky Ulloa MD 09/07/2025 02:17 PM EST RP Dictated By: Rocky Gibson MD Signed By: <Electronically signed by Rocky Hendricks MDin OV> 09/07/25 1417 DD/ 1332 TD/TT: 09/07/25 1400 Account Liaison: [facility] External Provider IMG MRI PROCEDURES Edited Result - Final documented in this encounter Visit Diagnoses Not on filedocumented in this encounter Additional Health Concerns Assessment Noted Time PHQ-9 Depression Total Score: 0 04/13/20 12:00 PM EDT documented as of this encounter Care Teams Magnetic Testing Technician Relationship Specialty Start Date End Date Neville Mendez MD [address] [place] [id number] PCP - General Internal Medicine 02/26/25 documented as of this encounter
--- OUTSIDE RECORDS SUMMARY | 2025-09-10 15:09 | XMS_ITS | Data Portability ---
Author Organization [place] [facility] Madiha Garcia [facility] Address [address] [place] [address] Care Team Providers Care Trapper Bird Name Role Phone GRETCHEN LONGO Referring Provider Assessment Encounter Date Assessment Date Assessment LastModified by Organization Details LastModified Time 09/24/2023 09/24/2023 HPI : Patient is here for 1 year follow-up for a LEFT total knee replacement. overall she has recovered well. She did have known hyperextension issues preoperatively. She did not want to consider a hinged, and overall she is having minimal hyperextension. She is walking with a cane out of comfort and issues with the right side. She is happy with her progress so far. Occasional aching. Occasional stiffness. Overall, patient reports good pain relief in the knee and satisfactory druze of function in terms of activities of daily living. Physical Exam : Patient is well nourished, well-developed, in no acute distress, with appropriate mood and affect. The patient is oriented to time, place, and person. Respirations are even and unlabored. There is no inguinal adenopathy. Examination of the contralateral knee shows hyperextension -10 degrees to 135. Valgus deformity. The affected limb is well-perfused, with well healed skin incision. The patient demonstrates good knee motion, stability, and strength. The knee moves from 0-130 degrees. The alignment of the knee is neutral. Muscle strength is normal. Pedal pulses are palpable. Hip examination, including flexion and internal rotation, was negative in that groin pain was not produced. Assessment/Plan : This patient is functioning well 1 year after LEFT total knee arthroplasty. Continue knee conditioning exercises. Unkk-fyx-yaannhn medications as needed. Ultimate failure may occur due to mechanical wear, loosening or breakage. Follow-up is recommended to assess for the possibility of failure. She can follow-up at 5 years from surgery unless there are issues with her left knee, right knee, or right hip before that time. Not available 09/24/2023 14:24:41 Plan of Treatment Reminders Order Date Submit Date Provider Last Modified By Organization Details Last Modified Time Details Appointments None record ed. Lab None record ed. Referral None record ed. Procedures None record ed. Surgeries None record ed. Imaging XR, knee, 3 view 024 09/24/19 24 [email or web address] [facility], [address], [address], [place], [address], 4 15:36:43 XR, knee, 3 view 023 12/12/19 23 snarus [facility], [address], [address], [place], [address], 3 10:14:17 Medication Orders None record ed. Patient TargetsNo targets recorded. Patient Instructions Encounter Date Encounter Id Patient Instructions Last Modified By Organization Details Last Modified Time 12/11/2022 [id number] AP, lateral, and patellar views of the left knee taken today demonstrate satisfactory position and alignment of components following left total knee replacement.. Not available 12/11/2022 16:10:37 09/24/2023 [id number] AP, lateral, and patellar radiographs of the left knee taken today demonstrate satisfactory position and alignment of components following left total knee replacement. Not available 09/24/2023 14:25:18 Reason for Referral None Reported. Problems Name Problem SNOMED Code Status Onset Date Resolution Date Notes Provider Name and Address Organization Details Recorded Time Spinal stenosis of lumbar region 45763873 Active 2015 Lumbar spinal stenosis Not Available [facility] 5 23:18:12 Essential hypertens ion 40317971 Active 2016 Essential hypertens ion Not Available [facility] 5 23:18:11 Dyslipide ochoa 231417792 Active 2016 Dyslipide ochoa Not Available [facility] 5 23:18:13 Body mass index 20-24 - normal 576611241 Active 2016 BMI 22.0-22.9 , adult Not Available [facility] 23:18:10 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 Not Available [facility] 5 23:18:13 Lives alone 444320276 Active 2017 Living alone Not Available [facility] 5 23:18:11 Osteoarth ritis of left knee joint 84727705556 9109 Active 2021 Left knee DJD Not Available [facility] 5 23:18:10 Inguinal hernia 517840495 Active 2023 Inguinal hernia Not Available [facility] 5 23:18:12 Systemic inflammat ory response syndrome 827648879 Active 2023 SIRS (systemic inflammat ory response syndrome) Not Available [facility] 5 23:18:10 Rhabdomyo lysis 100879222 Active 2023 Rhabdomyo lysis Not Available [facility] 5 23:18:12 Unstageab le pressure injury of sacral region of back Active 2023 Pressure injury of sacral region, unstageab le Not Available [facility] 5 23:18:12 Metabolic encephalo lloyd 24526824 Active 2023 Acute metabolic encephalo lloyd Not Available [facility] 5 23:18:13 Cyst of pancreas 41151771 Active 2023 Pancreati c cyst Not Available [facility] 5 23:18:10 Acute cystitis 01403147 Active 2023 Acute cystitis without hematuria Not Available [facility] 5 23:18:11 Ventricul omegaly 137076015 Active 2023 Cerebral ventricul omegaly Not Available [facility] 23:18:14 Problem Notes None recorded. Medical Equipment None Reported. Allergies Allergen ID Allergen Name Allergen Category Reaction Reaction Severity Criticality Documentation Date Start Date Code Code System Note Provider Name and Address Organization Details Recorded Time 34638 Product containin g penicilli n (product) medicatio n Not available Not available Not available 06/15/20252015 25597 8001 SNOMED React ion: Hives , sever ity: Unkno wn Not [facility] 01:12:13 Medications Name Sig Start Date Stop Date Status Note LastModified by Organization Details LastModified Time acetaminoph en 325 mg tablet Take 2 tablets (650 mg total) by mouth every 6 (six) hours as needed. 2023 active Not Available Not Available Not Avai lable sennosides 8.6 mg-docusate sodium 50 mg tablet Take 1-2 tablets by mouth daily. Take one to two tabs daily to prevent constipat ion while on narcotic pain medicatio ns. . 06/20 completed Not Available Not Available Not Available aspirin 81 mg tablet,kendrick yed release Take 1 tablet (81 mg total) by mouth 2 (two) times a day for 28 days. 09/25 completed Not Available Not Available Not Available acetaminoph en 500 mg tablet Take 2 tablets (1,000 mg total) by mouth every 6 (six) hours as needed. 06/20 completed Not Available Not Available Not Available meloxicam 7.5 mg tablet Take 1 tablet (7.5 mg total) by mouth daily for 30 days. 09/27 completed Not Available Not Available Not Available methocarbam ol 750 mg tablet Take 1 tablet (750 mg total) by mouth 4 (four) times a day as needed. 06/20 completed Not Available Not Available Not Available ascorbic acid (vitamin C) 250 mg tablet Take 500 mg by mouth daily. 06/20 completed Not Available Not Available Not Available lisinopril 10 mg tablet Take 1 tablet (10 mg total) by mouth daily. 06/20 completed Not Available Not Available Not Available calcium 200 mg (as calcium carbonate 500 mg) chewable tablet Chew 1 tablet (500 mg total) by mouth 3 (three) times a day as needed. 2023 active Not Available Not Available Not Avai lable omeprazole 20 mg capsule,del ayed release Take 1 capsule (20 mg total) by mouth daily for 42 days. Take while on ECASA to avoid GI distress. 10/09 completed Not Available Not Available Not Available mupirocin 2 % topical ointment Apply topically daily. 2023 active Not Available Not Available Not Avai lable collagenase clostridium histolyticu m 250 unit/gram topical ointment Apply topically daily. 2023 active Not Available Not Available Not Avai lable oxycodone 5 mg tablet Take 1 tablet (5 mg total) by mouth every 4 (four) hours as needed for pain. 06/20 completed Not Available Not Available Not Available docosahexae noic acid (dha)-epa 120 mg-180 mg capsule Take 1 capsule by mouth daily. 08/01 completed Not Available Not Available Not Available cholecalcif diallo (vitamin D3) 25 mcg (1,000 unit) tablet Take 1,000 Units by mouth daily. 06/20 completed Not Available Not Available Not Available white petrolatum 61 % topical cream Apply 1 applicati on. topically daily. 2023 active Not Available Not Available Not Avai lable Vitals Date Recorded Body weight Body mass index (BMI) Body height Provider Name and Address Organization Details Last Updated DateTime 12/11/2022 07076.12 g 20.1 kg/m2 161.[address] [place] [facility], 12/11/2022 15:29:25 Date Recorded Body mass index (BMI) Body height Body weight Provider Name and Address Organization Details Last Updated DateTime 06/22/2024 20.92 kg/m2 161.3 cm 17566 g Not Available [facility] 06/14/2025 23:26:05 Date Recorded Respiratory rate Heart rate Body temperature Oxygen saturation Systolic And Diastolic Provider Name and Address Organization Details Last Updated DateTime 20 /min 84 /min 98.798 [degF] 95 % 124/82 mm[Hg] Not Available [facility] 23:26:05 Social History None recorded. Functional Status None recorded. Mental Status None recorded. Family History Nothing Reported. Medical History Condition Response Coronary Artery Disease N Gout N Hyperthyroidism N Blood Transfusion N MRSA N Emphysema N Depression N COPD N Hypothyroidism N Pacemaker N Vascular Disease N Gastrointestinal Disease N Anxiety Disorder N Autoimmune disease N Arthritis N Cancer N Stroke N High Cholesterol N Neurologic Disorder N Liver Disease N Organ Transplant N Rheumatoid Arthritis N Arrhythmia N Fibromyalgia N Kidney Disease N Allergies/Hayfever N Adverse Reaction to Anesthesia N Thyroid Problems N Anemia N Brain Injury N Heart Attack (NV) N Osteopenia N Diabetes N Bleeding Disorder N Seizures/Epilepsy N AIDS/HIV N Congestive Heart Failure (CHF) N Asthma N Amputation N Reflux/GERD N Sleep Apnea N Hepatitis N Aneurysm N Heart Disease N Pulmonary Embolism N Hypertension N Osteoporosis N Gynecological HistoryNo gynecological history recorded. Obstetrics History GPAL:G 0 P 0 0 0 0 Immunizations Vaccine Type Date Status Note Provider Nam e and Address Organization Details Recorded Time Influenza, split virus, trivalent, preservative 6 completed Not Available [facility] 06/15/2025 05:23:34 Influenza, high-dose, quadrivalent, PF 1 completed Not Available [facility] 06/15/2025 05:23:34 COVID-19, mRNA, LNP-S, PF, 100 mcg/0.5mL dose or 50 mcg/0.25mL dose 2 completed Not Available [facility] 06/15/2025 05:23:34 Influenza, adjuvanted, quadrivalent, PF 0 completed Not Available [facility] 06/15/2025 05:23:35 COVID-19, mRNA, LNP-S, PF, 100 mcg/0.5mL dose or 50 mcg/0.25mL dose 1 completed Not Available [facility] 06/15/2025 05:23:35 influenza, unspecified formulation 9 completed Not Available [facility] 06/15/2025 05:23:35 Pneumococcal conjugate PCV 13 8 completed Not Available [facility] 06/15/2025 05:23:35 influenza, unspecified formulation 6 completed Not Available [facility] 06/15/2025 05:23:35 pneumococcal polysaccharide PPV23 9 completed Not Available [facility] 06/15/2025 05:23:35 COVID-19, mRNA, LNP-S, PF, 100 mcg/0.5mL dose or 50 mcg/0.25mL dose 1 completed Not Available [facility] 06/15/2025 05:23:35 COVID-19, mRNA, LNP-S, PF, 100 mcg/0.5mL dose or 50 mcg/0.25mL dose 1 completed Not Available [facility] 06/15/2025 05:23:35 Influenza, adjuvanted, quadrivalent, PF 2 completed Not Available [facility] 06/15/2025 05:23:35 Influenza, high-dose, quadrivalent, PF 3 completed Not Available [facility] 06/15/2025 05:23:35 COVID-19, mRNA, LNP-S, PF, 50 mcg/0.5 mL 3 completed Not Available [facility] 06/15/2025 05:23:36 Past Encounters Encounter ID Performer Location Encounter Start Date Encounter Closed Date Diagnosis/Indication Diagnosis SNOMED-CT Code Diagnosis ICD10 Code Diagnosis IMO Codes Diagnosis Note [id number] Rocco Wu MD [address] [address] 12/11/2022 15:08:07 12/11/2022 16:14:58 History of left total knee replacement 4491209279 568108 Z96.652 Aftercare 342707409 Z47. 1 [id number] Rocco Wu MD [address] [address] 09/24/2023 13:39:59 09/24/2023 14:26:51 History of left total knee replacement 3192589445 294906 Z96.652 Aftercare 663324859 Z47. 1 Health Concerns Section Related Observation LastModified by Organization Detai ls LastModified Time None Recorded Concern Status LastModified by Organization Details LastModified Time None Recorded Advance Directives Directive None Recorded Payers Insurance Date Sequence Insurance Name Policy Number Policy Rose Covered Member ID Rose Member ID Guarantor Name 10/16/2023 1 [facility] (MEDICARE REPLACEMENT/A DVANTAGE - PPO) [id number] Sylvia Jimenez [id number] Sylvia Jimenez Notes Date Note Type Note Provider Name and Address Organization Details Recorded Time 12/11/2022 text/html HPI: Patient is here for 3 month(s) follow-up for a LEFT total knee replacement. she is recovering well. She reports steady improvement in pain. She has been going to the gym. She can have days where she has increased pain, but overall she notes good progress. Overall she notes she is much better compared to preoperatively. Overall, patient reports good pain relief in the knee and satisfactory druze of function in terms of activities of daily living. Physical Exam: Patient is well nourished, well-developed, in no acute distress, with appropriate mood and affect. The patient is oriented to time, place, and person. Respirations are even and unlabored. There is no inguinal adenopathy. Examination of the contralateral knee shows normal range of motion, strength, no tenderness, and intact skin. Valgus deformity. The affected limb is well-perfused, with well healed skin incision. The patient demonstrates good knee motion, stability, and strength. The knee moves from 0 to 115 degrees. The alignment of the knee is neutral. Muscle strength is normal. Pedal pulses are palpable. Hip examination, including flexion and internal rotation, was negative in that groin pain was not produced. Assessment/Plan: This patient is functioning well 3 month(s) after LEFT total knee arthroplasty. Continue knee conditioning exercises. Dszj-ybo-phdphfx medications as needed. Ultimate failure may occur due to mechanical wear, loosening or breakage. Follow-up is recommended to assess for the possibility of failure. Patient will follow-up at 1 year from surgery with repeat x-rays of the left knee at that time. Rocco Wu MD [address], [place], [address], [place] [facility], P 12/11/2022 16:11:05 OBGyn Episode No OBEpisode recorded.
--- OUTSIDE RECORDS SUMMARY | 2025-09-10 15:09 | XMS_ITS | Clinical Summary ---
Author Organization [employer] Address [address] [facility] [address] [place] [address] Care Team Providers Care Leather Cartridge Belt Maker Name Role Phone Neville Mendez MD Primary Care Provider [phone] Allergies Active Allergy Reactions Criticality Noted Date [...] Spinal surgery 05/28/2019 Overview (09/01/2025): 2015 DR. 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/28/2019 Overview (09/01/2025): When she was a teenager Osteoarthritis of left knee 05/28/2019 Living alone 11/20/2017 Bilateral pseudophakia 07/17/2017 BMI 22.0-22.9, adult 07/17/2017 Dyslipidemia 01/02/2017 Essential hypertension 01/02/2017 Lumbar spinal stenosis 03/27/2016 Encounters Date Type Department Care Team Description 09/07/2025 Orders Only [facility] External Provider, [facility] 09/02/2025 1:00 PM EST Office Visit [facility] [address] [place] [address] Neville Mendez MD Cervicogenic headache (Primary Dx); Obstructive hydrocephalus (CMS/HCC) (HCC); Elevated blood pressure reading; Frequent falls 09/02/2025 Travel 09/01/2025 Telephone [facility] [address] [place] [address] Neville Mendez MD chart prep 06/14/2025 Telephone [facility] [address] [place] [address] Neville Mendez MD from Last 3 Months [...] PM EST Narrative 09/07/2025 2:20 PM EST [address] [address] Magnetic Resonance Report Signed Patient: Sylvia Jimenez MR#: [id number] : 1945 Acct:[id number] Age/Sex: 79 / F ADM Date: 09/07/25 Loc: HO.MRI Attending Dr: Aubree Dillard CNP Ordering Physician: Aubree Dillard CNP Date of Service: 09/07/25 Procedure(s): MR cervical spine wo con Accession Number(s): [id number] cc: Neville Mendez MD; Aubree Dillard CNP [...] wo con IMPRESSION: 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 Electronically signed by: Rocky Ulloa MD 09/07/2025 02:17 PM [facility] Dictated By: Rocky Gibson MD Signed By: <Electronically signed by Rocky Hendricks MD in OV> 09/07/25 1417 DD/ 1332 TD/TT: 09/07/25 1400 Wick And Base Assembler: Procedure Note Donotuseinterpreter, Image - 09/07/[address] [address] Magnetic Resonance Report Signed Patient: Sylvia Jimenez AMR#: [id number] : 5Acct:[id number] Age/Sex: 79 / FADM Date: 09/07/25 Loc: HO.MRI Attending Dr: Aubree Bechthold MEDIA RELATIONS DIRECTOR Ordering Physician: Aubree Dillard CNP Date of Service: 09/07/25 Procedure(s): MR cervical spine wo con Accession Number(s): [id number] cc: Neville Mendez MD; Aubree Dillard CNP [...] wo con IMPRESSION: 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 Electronically signed by: Rocky Ulloa MD 09/07/2025 02:17 PM EST Dictated By: Rocky Gibson MD Signed By: <Electronically signed by Rocky Hendricks MDin OV> 09/07/25 1417 DD/ 1332 TD/TT: 09/07/25 1400 [employer] And Base Assembler: [facility] External Provider IMG MRI PROCEDURES Edited Result - Final from Last 3 Months Insurance [facility] Care Teams Leather Cartridge Belt Maker Relationship Specialty Start Date End Date Neville Mendez MD [address] [place] [phone] PCP - General Internal Medicine 02/26/25
--- OUTSIDE RECORDS SUMMARY | 2025-09-10 15:09 | XMS_ITS | Clinical Summary ---
Author Organization [address] Address [address] [place] [address] Phone Care Team Providers Care Cartridge Loader Name Role Phone Unavailable Primary Care Provider [...] - [address] [place] [address] Decubitus ulcer, unstageable with infection ([facility]/HCC V24, [facility] V28) 07/27/2025 10:30 AM EST Office Visit Infectious Disease - [address] [place] [address] Alon Tsai MD Decubitus ulcer, unstageable with infection (CMS/HCC V24, CMS/HCC V28) (Primary Dx) 07/21/2025 10:50 AM EDT Lab Draw Station - [address] [place] [address] Unstageable pressure ulcer of elbow ([facility] V24, [facility] V28) (Primary Dx); Face, neck, and scalp [...] IOL IMPLANT; Surgeon: Ravi Maki MD; Location: [facility]; Service: Ophthalmology; Laterality: Left; CATARACT EXTRACTION W/ INTRAOCULAR LENS IMPLANT 02/19/2017 Right PROCEDURE:CATARACT EXTRACTION W/ INTRAOCULAR LENS IMPLANT;COMMENT:Procedure: EXTRACTION CATARACT WITH IOL IMPLANT; Surgeon: Ravi Maki MD; Location: [facility]; Service: Ophthalmology; Laterality: Right; LUMBAR FUSION 07/26/2016 Bilateral PROCEDURE:LUMBAR FUSION;COMMENT:Procedure: L4-5 POSTERIOR LUMBAR SPINE FUSION; Surgeon: Martín Pang MD; Location: [facility]IN [facility]PERATING ROOM; Service: Spine; Laterality: Bilateral; LUMBAR LAMINECTOMY 07/26/2016 Right PROCEDURE:LUMBAR LAMINECTOMY;COMMENT:Procedure : RIGHT L3-4L4-5 DECOMPRESSION POSTERIOR LUMBAR; Surgeon: Martín Pang MD; Location: [facility] MAIN [facility]PERATING ROOM; Service: Spine; Laterality: Right; LUMBAR EPIDURAL INJECTION 03/19/2016 Right PROCEDURE:LUMBAR EPIDURAL INJECTION;COMMENT:Procedure: Right L4-5 transforaminal SUREKHA; Surgeon: Kandace Ochoa MD; Location: [facility]; Service: Rehab Medicine; Laterality: Right; LUMBAR EPIDURAL INJECTION 02/02/2016 N/A PROCEDURE:LUMBAR EPIDURAL INJECTION;COMMENT:Procedure: INJECTION ANESTHETIC AGENT LUMBAR; Surgeon: Kandace Ochoa MD; Location: [facility]; Service: Rehab Medicine; Laterality: N/A; UPPER GASTROINTESTINAL ENDOSCOPY PROCEDURE:UPPER GASTROINTESTINAL ENDOSCOPY KNEE ARTHROPLASTY 08/27/2022 Left PROCEDURE:KNEE ARTHROPLASTY;COMMENT:Dr. 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, [facility]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[facility]);COMMENT:RT brain surgery Osteoarthritis DX:Osteoarthriti s COVID-19 vaccine [...] - [address] [place] [address] Alon Tsai MD [address] [place] [address] Health Maintenance Due Date Last [...] Resendiz RN Medical Devices Implanted Type Area Billet Assembler Device Identifier Shelf Expiration Date Model / Serial / Lot Cement Bone Surg Simplex Radiopq [facility] [id number] Implanted:Qty: 1 on 08/27/2022 by Rocco Wu MD Left: Knee [employer] [id number] 08/22/2023 6191-1-010 / / [id number] Cement Bone Surg Simplex Radiopq Stry-Howm [id number] Implanted:Qty: 1 on 08/27/2022 by Rocco Wu MD Left: Knee [employer] [id number] 08/22/2023 6191-1-010 / / [id number] Insert Tib Triathlon Baseplate Stry-Howm [id number] Implanted:Qty: 1 on 08/27/2022 by Rocco Wu MD Left: Knee [employer] [id number] 07/02/2027 5521-B-300 / / [id number] Tibial Bearing Insert Cs 10mm Stry-How [id number] Implanted:Qty: 1 on 08/27/2022 by Rocco Wu MD Left: Knee [employer] [id number] 05/03/2027 5531-G-310 -E / / [id number] Knee Compon Fem Cmnt Sz3 L Stry-How [id number] Implanted:Qty: 1 on 08/27/2022 by Rocco Wu MD Left: Knee [employer] [id number] 06/14/2027 5510-F-301 / / [id number] Procedures Procedure [...] C-reactive protein (07/27/2025 10:53 AM EST) Pathologist [facility] C-Reactive Protein <0.5 <0.5 mg/dL LAB CHEMISTRY METHOD 07/28/2025 7:37 PM EST [facility] Blood Venous blood specimen / Unknown Venipuncture / Unknown 07/27/2025 10:53 AM EST 07/27/2025 10:53 AM EST us Alon Tsai MD LAB BLOOD ORDERABLES Final Resu lt Performing Organization Address City/[facility]/ZIP Co de Phone Number [facility] [place] Reg. #: [id number] [address] [place] [address], * C reactive protein, high sensitivity (07/21/2025 10:59 AM EDT) [facility] CRP, High Sensitivity 2.99 mg/L LAB CHEMISTRY METHOD 07/21/2025 3:34 PM EDT [facility] Comment: Cardio CRP Relative Risk Categories [...] ORDERABLES Final Resu lt Performing Organization Address City/[facility]/ZIP Co de Phone Number [facility] [address] [place] [address], [place] [phone] * (ABNORMAL) Comprehensive metabolic panel (01/07/2025 11:21 AM EDT) [facility] Signature Sodium 141 133 - 145 mmol/L LAB CHEMISTRY METHOD 01/07/2025 2:05 PM [facility] Potassium 4.1 3.5 - 5.5 mmol/L LAB CHEMISTRY METHOD 01/07/2025 2:05 PM [facility] Chloride 105 96 - 110 mmol/L LAB CHEMISTRY METHOD 01/07/2025 2:05 PM [facility] CO2 26 21 - 32 mmol/L LAB CHEMISTRY METHOD 01/07/2025 2:05 PM [facility] Anion Gap 10 3 - 11 LAB CHEMISTRY METHOD 01/07/2025 2:05 PM [facility] Glucose 112(H) 70 - 100 mg/dL LAB CHEMISTRY METHOD 01/07/2025 2:05 PM [facility] BUN 19 5 - 25 mg/dL LAB CHEMISTRY METHOD 01/07/2025 2:05 PM [facility] Creatinine 0.63 0.50 - 1.10 mg/dL LAB CHEMISTRY METHOD 01/07/2025 2:05 PM [facility] eGFR 90 >=60 mL/min/1. 73m2 LAB CHEMISTRY METHOD 01/07/2025 2:05 PM [facility] Comment:Calculation based on the Chronic Kidney Disease Epidemiology Collaboration (CKD-EPI) equation refit without adjustment for race. BUN/Creatinine Ratio 30.2 LAB CHEMISTRY METHOD 01/07/2025 2:05 PM [facility] Calcium 10.2 8.5 - 10.5 mg/dL LAB CHEMISTRY METHOD 01/07/2025 2:05 PM [facility] AST (SGOT) 25 10 - 42 unit/L LAB CHEMISTRY METHOD 01/07/2025 2:05 PM EDT [facility] ALT (SGPT) 31 10 - 60 unit/L LAB CHEMISTRY METHOD 01/07/2025 2:05 PM EDT [facility] Alkaline Phosphatase 82 42 - 121 unit/L LAB CHEMISTRY METHOD 01/07/2025 2:05 PM EDT [facility] Total Protein 7.2 6.0 - 8.0 g/dL LAB CHEMISTRY METHOD 01/07/2025 2:05 PM EDT [facility] Albumin 3.8 3.2 - 5.0 g/dL LAB CHEMISTRY METHOD 01/07/2025 2:05 PM EDT [facility] Total Bilirubin 0.5 0.0 - 1.4 mg/dL LAB CHEMISTRY METHOD 01/07/2025 2:05 PM EDT [facility] Blood Venous blood specimen / Unknown Venipuncture / Unknown 01/07/2025 11:21 AM EDT 01/07/2025 12:34 PM EDT us Chantelle PIERCE LAB BLOOD ORDERABLES Magali l Result [facility] [address] [place] [address], * BONE DENSITY STUDY (03/27/2022 1:38 PM EDT) Anatomical Region Laterality Modality Bone Densitometr y 03/19/2022 12:0 3 PM EDT Narrative 03/28/2022 11:56 AM EDT Bone density study Indication and risk factors: Postmenopausal female. Screening for osteoporosis. Study acquired on a [employer] densitometer. Imaging of the lumbar spine and [...] on 03/28/2022 11:56 AM. Workstation Name - [employer] Procedure Note Bárbara Weller MD - 09/14/2022 Bone density study Indication and risk factors: Postmenopausal female. Screening forosteoporosis. Study acquired on a [employer] densitometer. Imaging of thelumbar spine and hip [...] Weller on 03/28/2022 11:56 AM.Workstation Name - [employer] Janki Samaniego MD IM DXA PROCEDURES Final R esult from Last 3 Months or Most Recently Relevant to Health Maintenance Additional Health Concerns Active Problems Noted Date Diagnosed Date Impaired Tissue 10/20/2024 Education needed on impact of smoking on wound 0 10/20/2024 Education needed related to ulceration/compromised skin integrity. 10/20/2024 [facility] [address] [facility] [place] [id number] [employer] MEDICARE Advance Directives Documents on File Type Date Recorded Patient Beam Department Supervisor Expl anation Health Care Decision (hx) 06/25/2024 RINKU TINSLEY DIRECTIVE
--- OUTSIDE RECORDS SUMMARY | 2025-09-10 15:09 | XMS_ITS | Encounter Summary ---
Author Organization [employer] Address [address] [place] [address] [address] [place] [address] Care Team Providers Care Environmental Planning Engineer Name Role Phone Neville Mendez MD Primary Care Provider [phone] Encounter Details Date Type Department Care Team (Late st Contact Info) Description 06/01/2025 Orders Only [facility] [address] [place], [place] [phone] Neville Mendez MD [address] [place] [address] Frequent falls (Primary Dx); Other hydrocephalus (CMS/HCC) [...] documented as of this encounter Care Teams Environmental Planning Engineer Relationship Specialty Start Date End Date Neville Mendez MD [address] [place] [id number] PCP - General Internal Medicine 02/26/25 documented as of this encounter
== END 2025-09-10 14:28 | disposition home or self-care (01) ==
LOC: HO.HSM 13:24
PROVIDERS: PCP Internal Medicine; Visit Provider Nurse Practitioner
DX: M54.81 Occipital neuralgia (principal); M25.519 Pain in unspecified shoulder; G95.20 Unspecified cord compression
CPT/HCPCS: 99214

== ENCOUNTER → 2025-09-10 13:24 | Outpatient (BNVA) | payer MEDICARE, SELFPAY | PROVIDERS: PCP Internal Medicine; Visit Provider Nurse Practitioner | DX: M54.81 Occipital neuralgia (principal); G95.29 Other cord compression; Z91.81 History of falling | CPT/HCPCS: 99212 ==